=== PATIENT | male | born 1935 | race Caucasian/White ===

== ENCOUNTER 2017-03-13 12:07 | Inpatient (IN) | payer OTHER ==
[2017-03-13 12:30] VITALS: BMI 23.7
--- NOTE | 2017-03-13 14:25 | PDOC ---
History of Present Illness - General Chief Complaint: CVA/TIA Stated Complaint: Altered Mental Status Time Seen by Provider: 03/13/17 12:28 History Source: Patient, Care Provider (Dr Moose Moss was called after speaking with pt.) Exam Limitations: Clinical Condition, Dementia - History of Present Illness Initial Comments: 03/13/17 14:23 The patient is a 81M with a PMH DM, prostate issues, Parkinson's demetia, and a questionable R pneumo who presented to the ED from home via EMS after he states that he was unable to walk and felt weak when he woke up this morning. He does not know his last known well. He did not come with any paperwork and cannot tell me his PMH. PMH is from his PCP. EF = 50% Past History - Past Medical History Allergies/Adverse Reactions: Allergies Allergy/AdvReac Type Severity Reaction Status Date / Time No Known Allergies Allergy Verified 03/13/17 16:08 Home Medications: Ambulatory Orders Furosemide [Lasix -] 20 mg PO DAILY 03/13/17 Lisinopril [Prinivil] 10 mg PO DAILY 03/13/17 Meclizine HCl 12.5 mg PO DAILY 03/13/17 Metformin HCl [Metformin HCl ER] 500 mg PO DAILY 03/13/17 Tamsulosin HCl [Flomax] 0.4 mg PO DAILY 03/13/17 Tiotropium [place] [Spiriva] 1 puff IH DAILY 03/13/17 - Psycho/Social/Smoking Cessation Hx Suicidal Ideation: No Smoking History: Unknown if ever smoked Have you smoked in the past 12 months: No Information on smoking cessation initiated: No Hx Alcohol Use: No Drug/Substance Use Hx: No Review of Systems - Review of Systems Able to Perform ROS?: No (Demented) *Physical Exam - Vital Signs Last Vital Signs Temp Pulse Resp BP Pulse Ox 98 F 80 18 163/87 100 03/13/17 12:27 03/13/17 12:27 03/13/17 12:27 03/13/17 12:27 03/13/17 12:27 - Physical Exam General Appearance: Yes: Nourished, Disheveled HEENT: positive: Normal Voice, Hearing Grossly Normal Respiratory/Chest: positive: Lungs Clear, Normal Breath Sounds. negative: Chest Tender Cardiovascular: positive: Regular Rhythm, Regular Rate, S1, S2. negative: Diastolic Murmur, Systolic Murmur Gastrointestinal/Abdominal: positive: Flat, Soft. negative: Tender Integumentary: positive: Dry, Warm Neurologic: positive: Other (See NIHSS scale) NIH Stroke Scale - Last Known Well Date/Time & Onset Date Last Known Well: 03/12/17 (Unsure) - Initial Evaluation Level of consciousness: Alert Ask patient the month and their age: Answers one correctly Ask patient to open & close eyes; make fist and let go: Obeys both correctly Best gaze (horizontal eye movement): Normal Visual field testing: No visual field loss Facial paresis (Show teeth/raise eyebrows/close eyes tight): Minor paralysis ( flattened nasolabial fold, asymmetry on smiling) Motor Function: Left Arm: Normal Motor Function: Right Arm: Some effort against gravity Motor Function: Left Leg: Normal (extends leg 30 degrees for 5 seconds without drift) Motor Function: Right Leg: Normal (extends leg 30 degrees for 5 seconds without drift) Limb Ataxia: Present in one limb Sensory(Use pinprick test arms,legs,trunk,face/side to side): Normal Best language (Describe picture, name items, read sentences): No Aphasia Dysarthria (read several words): Normal articulation Extinction and Inattention: No abnormality - Total Score NIH Stroke Scale Score: 5 Heart Score/ECG Review - ECG Intrepretation Comment:: 03/13/17 14:50 Paced - QRS Measured at (milliseconds): 154 - ECG Impressions Comment:: 03/13/17 18:32 Ventricular paced. Critical Care Time/MDM Note - Medical Decision Making Note: 03/13/17 14:51 The patient is a demented 81M with a PMH of DM and is s/p a pacemaker who presented to the ED via EMS for being unable to walk. Septic protocol is being followed. Dr. Moose Moss was called for information and wants the patient admitted with respective consults ordered. 03/13/17 18:01 CT shows R occipital infarct. Dr. Moss accepts admission to med/surg. PAOC (Dr. Cristofer Figueroa) suggests a switch to observation status. I have discussed this with Dr. Moss and he wants to keep the full admission status secondary to the R occipital infarct, having the patient seen by Dr. Gamboa, and the patient's pacemaker. I will keep the order as-is. Discharge Disposition - Diagnosis TIA (transient ischemic attack) Qualifiers: Transient cerebral ischemia type: unspecified Qualified Code(s): G45.9 - Transient cerebral ischemic attack, unspecified - Discharge Dispostion Condition at time of disposition: Stable Admit: Yes - Referrals
[2017-03-13 14:32] LABS: BASOPHIL 0.8 % (0-2.0); EOSINOPHIL 1.4 % (0-4.5); MCH 29.6 pg (25.7-33.7); MCHC 33.1 g/dl (32.0-35.9); MEAN CELL VOLUME 89.5 fl (80-96); MEAN PLT VOLUME 7.8 fl (7.5-11.1); NEUTROPHILS 83.1 % (42.8-82.8); PLATELET COUNT 301 K/MM3 (134-434); RDW 14.7 % (11.9-15.9); WHITE BLOOD COUNT 12.3 K/mm3 (4.0-10.0)
[2017-03-13 14:39] LABS: CALCIUM 9.4 mg/dL (8.5-10.1)
[2017-03-13 14:44] LABS: ALBUMIN 3.8 g/dl (3.4-5.0); ANION GAP 9 (8-16); BILIRUBIN,TOTAL 0.8 mg/dL (0.2-1.0); CO2 26 mmol/L (21-32); CREATININE 0.9 mg/dL (0.7-1.3); GLUCOSE,RANDOM 138 mg/dL (74-106); SGOT/AST 8 U/L (15-37); SGPT/ALT 13 U/L (12-78); TOT PROT 7.8 g/dl (6.4-8.2)
[2017-03-13 14:45] LABS: INR 1.1 (0.82-1.09); PROTHROMBIN TIME (PATIENT) 12.1 SEC (9.98-11.88)
[2017-03-13 14:47] LABS: ALK PHOS 83 U/L (45-117); CPK 75 IU/L (39-308); TROPONIN I < 0.02 ng/ml (0.00-0.05)
[2017-03-13 14:48] LABS: VENOUS PH 7.36 (7.32-7.42)
[2017-03-13 14:48] LABS: ACTIVATED PTT 31.7 SECONDS (26.9-34.4)
[2017-03-13 14:49] LABS: VENOUS BLOOD GAS HCO3 27.3 meq/L (19-25)
[2017-03-13 15:20] LABS: URINE APPEARANCE CLEAR; URINE BILIRUBIN NEGATIVE (NEGATIVE); URINE BLOOD NEGATIVE (NEGATIVE); URINE COLOR DKYELLOW; URINE GLUCOSE (UA) NEGATIVE (NEGATIVE); URINE KETONE NEGATIVE (NEGATIVE); URINE LEUK ESTERASE NEGATIVE (NEGATIVE); URINE NITRITE NEGATIVE (NEGATIVE); URINE PROTEIN NEGATIVE (NEGATIVE); URINE UROBILINOGEN NEGATIVE mg/dL (0.2-1.0)
--- NOTE | 2017-03-13 17:18 | EKG ---
Test Reason : Blood Pressure : / mmHG Vent. Rate : 070 BPM Atrial Rate : 066 BPM P-R Int : 000 ms QRS Dur : 154 ms QT Int : 464 ms P-R-T Axes : 000 -16 057 degrees QTc Int : 501 ms Ventricular-paced rhythm PROBABLE UNDERLYING ATRIAL FIBRILLATION ABNORMAL ECG NO PREVIOUS ECGS AVAILABLE Confirmed by MARIELLE YE MD ([id number]) on 03/13/2017 5:18:04 PM Referred By: Confirmed By:MARIELLE YE MD
[2017-03-13] MEDS ORDERED: PNEUMOC 13-VAL CONJ-DIP CRM/PF 0.5 ML DISP.SYRIN IM ONE (17:25)
[2017-03-13] MEDS: SODIUM CHLORIDE 1,000 ML IV SCH (20:28)
--- NOTE | 2017-03-14 00:15 | CON.NEURO ---
Consult Consult Specialty:: NEUROLOGY-[facility] - History of Present Illness Chief Complaint: Difficulty ambulating and speech difficulty History of Present Illness: The patient is a 81M with a PMH DM, prostate issues, Parkinson's demetia, and a questionable R pneumo who presented to the ED from home via EMS after he stated that he was unable to walk and felt weak when he woke up this morning. He does not know his last known well. He did not come with any paperwork and cannot tell me his PMH. Pt. is unable to relate history now due to language disorder, as per nursing staff pt. reportedly fell at home and since has difficulty expressing himself. 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 - Alcohol/Substance Use Hx Alcohol Use: No - Smoking History Smoking history: Unknown if ever smoked Have you smoked in the past 12 months: No Home Medications - Allergies Allergies/Adverse Reactions: Allergies Allergy/AdvReac Type Severity Reaction Status Date / Time No Known Allergies Allergy Verified 03/13/17 16:08 - Home Medications Home Medications: Ambulatory Orders Furosemide [Lasix -] 20 mg PO DAILY 03/13/17 Lisinopril [Prinivil] 10 mg PO DAILY 03/13/17 Meclizine HCl 12.5 mg PO DAILY 03/13/17 Metformin HCl [Metformin HCl ER] 500 mg PO DAILY 03/13/17 Tamsulosin HCl [Flomax] 0.4 mg PO DAILY 03/13/17 Tiotropium [place] [Spiriva] 1 puff IH DAILY 03/13/17 Physical Exam-Neuro Vital Signs: Vital Signs Temperature 98 F 03/13/17 12:27 Pulse Rate 70 03/13/17 16:57 Respiratory Rate 18 03/13/17 16:57 Blood Pressure 151/98 03/13/17 16:57 O2 Sat by Pulse Oximetry (%) 96 03/13/17 20:35 Labs: INR, PTT INR 1.10 (0.82-1.09) 03/13/17 13:00 - Neuro Exam Level Of Consciousness: Yes: Alert (Follows one step commands) Eyes: Yes: PERRL, Right Hemianopsia (?? RHH to threat) Speech: Other (Mixed motor/sensory aphasia with non-fluent speech, logorrhea, anomia, impaired comprehension) Dominant Hand: Right Mini Mental Exam: Unable to test due to language disorder Cranial Nerves II-XII Intact: No (right facial droop, not known old or new) DTR's: 0 Left Achilles, 0 Right Achilles, 1+ Left Bicep (No cogwheel rigidity present), 1+ Right Bicep, 1+ Left Tricep, 1+ Right Tricep, 1+ Left Brachioradialis, 1+ Right Brachioradialis Babinski: Present (Bilateral upgoing toes.) Response to light touch: Normal (Withdraws all 4 ext. to light pain.) Motor Strength: 4/5: Right Arm, Right Leg (?? 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 This localizes to left temporoparietal area, still could be in left CAMPUS ADMINISTRATIVE ASSISTANT territiry or post MCA branches occlusion. Given aphasia will presume embolic etiology unless proven otherwise. Suggest: 1) MRI brain 2) Echo/cardiac monitoring 3) Carotid doppler study 4) Please switch ASA to Plavix if pt. had been on ASA at home. 5) Cardiology consultation. Will follow, Thank you, Vaughn Cruz MD
[2017-03-14] MEDS: metFORMIN HCL 500 MG TABLET (FP) PO SCH ×2 (06:00→17:00)
[2017-03-14 07:25] LABS: BASOPHIL 0.6 % (0-2.0); EOSINOPHIL 4.9 % (0-4.5); MCH 29.7 pg (25.7-33.7); MCHC 33.5 g/dl (32.0-35.9); MEAN CELL VOLUME 88.6 fl (80-96); MEAN PLT VOLUME 7.5 fl (7.5-11.1); NEUTROPHILS 64.7 % (42.8-82.8); PLATELET COUNT 253 K/MM3 (134-434); RDW 14.5 % (11.9-15.9); WHITE BLOOD COUNT 7.6 K/mm3 (4.0-10.0)
--- NOTE | 2017-03-14 08:21 | PN ---
Progress Note (short form) - Note Progress Note: Pts. condition unchanged, he remains with mixed sensory/motor aphasia and 4+/5? ? right leg weakness. Chart home meds reviewed-he was not taking ASA at home, started in hospital, would cont. ASA 81mg daily. Await MRI brain/Carotid study. Vaughn Roche MD
[2017-03-14 08:25] LABS: ALBUMIN 2.9 g/dl (3.4-5.0); ALK PHOS 64 U/L (45-117); ANION GAP 8 (8-16); BILIRUBIN,TOTAL 0.9 mg/dL (0.2-1.0); CALCIUM 8.2 mg/dL (8.5-10.1); CO2 25 mmol/L (21-32); CREATININE 0.8 mg/dL (0.7-1.3); GLUCOSE,RANDOM 107 mg/dL (74-106); SGOT/AST 12 U/L (15-37); SGPT/ALT 11 U/L (12-78)
[2017-03-14] MEDS: SODIUM CHLORIDE 1,000 ML IV SCH (10:12)
[2017-03-14] MEDS: ASPIRIN COATED 81 MG TABLET.EC PO SCH (10:17)
[2017-03-14] MEDS: LISINOPRIL 10 MG TABLET (FP) PO SCH (10:17)
--- NOTE | 2017-03-14 10:36 | HP ---
Admitting History and Physical - Admission Chief Complaint: pt confused slytley. states he was on floor does not no why. 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 ??/) Pulmonary: Yes: COPD - Smoking History Smoking history: Unknown if ever smoked Have you smoked in the past 12 months: No - Alcohol/Substance Use Hx Alcohol Use: No - Social History Usual Living Arrangement: Yes: Other (h a) ADL: Independent History of Recent Travel: No Home Medications - Allergies Allergies/Adverse Reactions: Allergies Allergy/AdvReac Type Severity Reaction Status Date / Time No Known Allergies Allergy Verified 03/13/17 16:08 - Home Medications Home Medications: Ambulatory Orders Furosemide [Lasix -] 20 mg PO DAILY 03/13/17 Lisinopril [Prinivil] 10 mg PO DAILY 03/13/17 Meclizine HCl 12.5 mg PO DAILY 03/13/17 Metformin HCl [Metformin HCl ER] 500 mg PO DAILY 03/13/17 Tamsulosin HCl [Flomax] 0.4 mg PO DAILY 03/13/17 Tiotropium [place] [Spiriva] 1 puff IH DAILY 03/13/17 Family Disease History - Family Disease History Family History: Unremarkable Review of Systems - Review of Systems Constitutional: reports: Weakness (lt side) Eyes: reports: No Symptoms HENT: reports: No Symptoms Neck: reports: No Symptoms Cardiovascular: reports: Shortness of Breath (exertional) Respiratory: reports: SOB on Exertion Gastrointestinal: reports: No Symptoms Genitourinary: reports: No Symptoms Breasts: reports: No Symptoms Reported Musculoskeletal: reports: Back Pain Integumentary: reports: No Symptoms Neurological: reports: Confusion, Unsteady Gait, Other (lt side slytley) Hematology/Lymphatic: reports: No Symptoms Psychiatric: reports: No Symptoms Physical Examination Vital Signs: Vital Signs Temperature 98.8 F 03/14/17 06:00 Pulse Rate 70 03/14/17 06:00 Respiratory Rate 18 03/14/17 06:00 Blood Pressure 129/75 03/14/17 06:00 O2 Sat by Pulse Oximetry (%) 97 03/14/17 06:00 Labs: CBC, BMP 03/14/17 05:35 03/14/17 05:35 Problem List - Problems (1) CHF (congestive heart failure) Code(s): I50.9 - HEART FAILURE, UNSPECIFIED (2) HTN (hypertension) Code(s): I10 - ESSENTIAL (PRIMARY) HYPERTENSION (3) BPH (benign prostatic hyperplasia) Assessment/Plan: pacmaker aiso Code(s): N40.0 - BENIGN PROSTATIC HYPERPLASIA WITHOUT LOWER URINRY TRACT SYMP (4) Afib Code(s): I48.91 - UNSPECIFIED ATRIAL FIBRILLATION (5) Diabetes 1.5, managed as type 2 Code(s): E10.9 - TYPE 1 DIABETES MELLITUS WITHOUT COMPLICATIONS (6) COPD (chronic obstructive pulmonary disease) Code(s): J44.9 - CHRONIC OBSTRUCTIVE PULMONARY DISEASE, UNSPECIFIED (7) Parkinson disease Code(s): G20 - PARKINSON'S DISEASE Assessment/Plan wacful for pacmaker if mri done neuro card f/u
--- NOTE | 2017-03-14 13:17 | CONS ---
CARDIOLOGY CONSULTATION DATE OF CONSULTATION: 03/14/2017 TIME OF CONSULTATION: 10 a.m. REQUESTING PHYSICIAN: Moose Moss MD LOCATION: Telemetry unit. CHIEF COMPLAINT: Confusion. HISTORY OF PRESENT ILLNESS: Patient is an 81-year-old white gentleman who is unable to give a history, is confused in time and space, and also appears to have expressive aphasia. On reviewing patient's history from the emergency room, he is known to have diabetes mellitus, apparently had parkinsonism, dementia, history of permanent pacemaker. Apparently, he has difficulty in ambulating, came with generalized weakness. He is unable to give history of chest pain or discomfort. No history of dyspnea, paroxysmal nocturnal dyspnea, or orthopnea is available. Patient points to his throat and is trying to communicate, but he is unable to speak. There is no known history of hypertension, diabetes mellitus. No known history of coronary artery disease. PAST HISTORY: 1. As mentioned in the history of present illness. 2. No other pertinent past history is available. SOCIAL HISTORY: Not available. FAMILY HISTORY: Not available. ALLERGIES: No allergies have been documented. CURRENT MEDICATIONS: Are as follows: 1. Lisinopril 10 mg p.o. daily. 2. Metformin 500 mg p.o. b.i.d. a.c. 3. Aspirin 81 mg p.o. daily. 4. Sodium chloride IV solution. REVIEW OF SYSTEMS: Not available. PHYSICAL EXAMINATION: General: An 81-year-old gentleman who is ill kept, disheveled, is unable to speak. There is no pallor, cyanosis, clubbing, or jaundice. Vital Signs: Weight is not recorded. Blood pressure 129/75 mmHg. Pulse 70 beats per minute and regular. Afebrile at 98.8 degrees Fahrenheit. Respirations were 18 per minute. Neck: Supple. No jugular venous distention. Hepatojugular reflex was negative. Carotids were 2+. Upstrokes were normal. No bruits were appreciated, and no thyromegaly was palpable. Heart: PMI was in the fifth intercostal space. No heaves or thrills. Heart sounds are distant. No murmur or gallops were heard. Lungs: Clear on auscultation. Abdomen: Protuberant, soft, and nontender. No hepatosplenomegaly or palpable masses were present. Bowel sounds were present. No bruits were heard. Extremities: No calf tenderness or dependent edema. Pulses were equal. LABORATORY DATA: CBC: March 14, 2017, WBC count was 7600. Hemoglobin was 12.8 g/dL. Platelet count was 253,000. Differential revealed elevated eosinophils. Chemistry: Sodium 139, potassium 4.1, chloride 106, CO2 of 25, BUN 20, creatinine 1.8 mg/dL. Random glucose was 107 mg/dL. ECG: Atrial rhythm is uncertain, probably atrial fibrillation. Permanent pacemaker was seen functioning in a fixed rate, more with consistent ventricular capture. X-ray chest dated March 13, 2017: Left-sided pacemaker is unchanged. There are elevated diaphragms with poor inspiration. This accentuates the pulmonary marking as well as cardiac size. There still may be some cardiomegaly and vascular prominence, but to determine this, repeat film with better inspiratory effort is needed. CT scan of the head without contrast impression: Generalized volume loss with [id number] chronic microvascular ischemic changes, focal encephalomalacia/old infarct at the right occipital lobe. No gross acute infarct is identified. Correlate clinically due to determine further evaluation and followup. IMPRESSION: 1. Altered mental status, etiology: A. Secondary to dementia. B. Superimposed cerebrovascular accident. 2. History of diabetes mellitus. 3. Underlying rhythm appears to be atrial fibrillation. 4. Status post permanent pacemaker. 5. History of dementia. RECOMMENDATION: 1. Family member or caregiver needs to be contacted to obtain history and his current medications. 2. Followup x-ray chest. 3. Echocardiogram for evaluation of left ventricular size and function. 4. T3, T4, and TSH. 5. Neurological workup is in progress. Please note that patient has a permanent pacemaker and would not be a candidate for MRI. PROGNOSIS: Guarded. Thank you for your referral. Yours sincerely, KALEB NELSON M.D. [id number]
--- NOTE | 2017-03-14 13:53 | PN ---
Progress Note, Physician - Current Medication List Current Medications: Active Medications Aspirin (Ecotrin -) 81 mg PO DAILY [facility] Last Admin: 03/14/17 10:17 Dose: 81 mg Sodium Chloride (Normal Saline -) 1,000 mls @ 42 mls/hr IV ASDIR [facility] Last Admin: 03/14/17 10:12 Dose: 42 mls/hr Lisinopril (Prinivil) 10 mg PO DAILY [facility] Last Admin: 03/14/17 10:17 Dose: 10 mg Metformin HCl (Glucophage -) 500 mg PO BID@0700,1630 [facility] Last Admin: 03/14/17 06:00 Dose: 500 mg - Objective Vital Signs: Vital Signs Temperature 98.8 F 03/14/17 06:00 Pulse Rate 70 03/14/17 06:00 Respiratory Rate 18 03/14/17 06:00 Blood Pressure 129/75 03/14/17 06:00 O2 Sat by Pulse Oximetry (%) 97 03/14/17 09:00 Labs: CBC, BMP 03/14/17 05:35 03/14/17 05:35 INR, PTT INR 1.10 (0.82-1.09) 03/13/17 13:00 Problem List - Problems (1) CHF (congestive heart failure) Code(s): I50.9 - HEART FAILURE, UNSPECIFIED (2) HTN (hypertension) Code(s): I10 - ESSENTIAL (PRIMARY) HYPERTENSION (3) BPH (benign prostatic hyperplasia) Code(s): N40.0 - BENIGN PROSTATIC HYPERPLASIA WITHOUT LOWER URINRY TRACT SYMP (4) Afib Code(s): I48.91 - UNSPECIFIED ATRIAL FIBRILLATION (5) Diabetes 1.5, managed as type 2 Code(s): E10.9 - TYPE 1 DIABETES MELLITUS WITHOUT COMPLICATIONS (6) COPD (chronic obstructive pulmonary disease) Code(s): J44.9 - CHRONIC OBSTRUCTIVE PULMONARY DISEASE, UNSPECIFIED (7) Parkinson disease Code(s): G20 - PARKINSON'S DISEASE Assessment/Plan pt has hx of a/v block compleat also tried to get hx from [facility] she was not there chf quetionable recoreds diff to obtain
[2017-03-15] MEDS: metFORMIN HCL 500 MG TABLET (FP) PO SCH ×2 (07:25→18:00)
[2017-03-15 07:30] LABS: BASOPHIL 0.8 % (0-2.0); EOSINOPHIL 8.1 % (0-4.5); MCH 29.8 pg (25.7-33.7); MCHC 33.4 g/dl (32.0-35.9); MEAN PLT VOLUME 7.5 fl (7.5-11.1); NEUTROPHILS 60.9 % (42.8-82.8); PLATELET COUNT 232 K/MM3 (134-434); WHITE BLOOD COUNT 7.1 K/mm3 (4.0-10.0)
[2017-03-15 08:11] LABS: ANION GAP 8 (8-16); CO2 25 mmol/L (21-32); GLUCOSE,RANDOM 100 mg/dL (74-106)
[2017-03-15 08:12] LABS: CREATININE 0.8 mg/dL (0.7-1.3)
--- NOTE | 2017-03-15 08:33 | PN ---
Progress Note, Physician History of Present Illness: Pts condition appears improved, his speech is improved with better comprehension and is somewhat more fluent than yesterday. Remains with 4+/5 weakness in right leg. Plan: 1) Will obtain repeat CT head, cannot have MRI as he has a pacemaker. 2) Will call family and enquire re: what meds patient has been on for PD. 3) Cont. ASA - Current Medication List Current Medications: Active Medications Aspirin (Ecotrin -) 81 mg PO DAILY [facility] Last Admin: 03/14/17 10:17 Dose: 81 mg Sodium Chloride (Normal Saline -) 1,000 mls @ 42 mls/hr IV ASDIR [facility] Last Admin: 03/14/17 10:12 Dose: 42 mls/hr Lisinopril (Prinivil) 10 mg PO DAILY [facility] Last Admin: 03/14/17 10:17 Dose: 10 mg Metformin HCl (Glucophage -) 500 mg PO BID@0700,1630 [facility] Last Admin: 03/15/17 07:25 Dose: 500 mg - Objective Vital Signs: Vital Signs Temperature 98.6 F 03/15/17 00:47 Pulse Rate 71 03/15/17 00:47 Respiratory Rate 18 03/15/17 00:47 Blood Pressure 98/6 03/15/17 00:47 O2 Sat by Pulse Oximetry (%) 97 03/14/17 21:00 Neurological: Yes: Alert, Oriented, Aphasia (Improved fluency of language.) ...Motor Strength: RLE (4+/5) Labs: CBC, BMP 03/15/17 06:00 INR, PTT INR 1.10 (0.82-1.09) 03/13/17 13:00
[2017-03-15] MEDS: ASPIRIN COATED 81 MG TABLET.EC PO SCH (09:26)
[2017-03-15] MEDS: LISINOPRIL 10 MG TABLET (FP) PO SCH (09:27)
--- NOTE | 2017-03-15 10:19 | PDOC ---
Attending Attestation - Resident Resident Name: Gianluca Zuñiga - ED Attending Attestation I have performed the following: I have examined & evaluated the patient, The case was reviewed & discussed with the resident, I agree w/resident's findings & plan, Exceptions are as noted - HPI HPI: 03/15/17 10:17 Patient seen 03/13 @ 14:30 Dementia living at home, generalized weakness, ? TIA earlier at home? 03/15/17 10:20 - Physicial Exam PE: 03/15/17 10:18 Frail, NAD, Neurologically without focal deficit, - Medical Decision Making 03/15/17 10:18 I agree with septic work up and admission plans of Dr. Zuñiga 03/15/17 10:[address] Zuñiga's Assessment and Plan
--- NOTE | 2017-03-15 11:15 | CONSULT ---
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 This localizes to left temporoparietal area, still could be in left SUPERVISOR WOUND territiry or post MCA branches occlusion. 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 At times, responses are inaccurate sec Aphasia. eg Pt said year was 38. Comprehension of present yr vs birthdate. Then corrected himself to 18. O x [facility],FEB,KEVIN. good historian for me.), Awake and Alert, Able to Follow Commands (simple. Errors with longer commands.) Attention: Intact Ability to Follow Directions: Fair Head/Neck Control: Good - Hearing Hearing: Impaired (possibly,assessment complicated by auditory comprehension deficits. Pt denies hearing loss.) Speech Evaluation - Communication Primary Language: BELARUSIAN Secondary Language: SERBIAN (fluent) Communication: Yes: Aphasia Oral Expression Ability: Yes: Mild Impairment, Moderate Impairment - Speech Production Able to Make Needs Known: Yes: Mildly Impaired, Moderately Impaired Intelligibility: Yes: Mildly Impaired - Speech Characteristics Voice Loudness: Normal Voice Pitch: Yes: Normal Voice Phonatory-based Quality: Yes: Hoarse Speech Pattern: Impaired Speech Clarity: < 75% Nasal Resonance: Normal Articulation: Yes: Imprecise (mild) - Language/Auditory Comprehension Follows: Yes: 1 Stage Simple Commands Observation: Able to respond to yes/no queries: Yes (simple not complex), Comprehends Conversational Speech: Yes (simple not complex), Benefits from Slow Speech: Yes, Benefits from Repetiton: Yes, Benefits from Increased Volume of Speech: Yes - Language/Verbal Expression Aphasia: Yes: Fluent, Anomia, Paraphrasic Errors Able to Respond to Simple Queries: Yes: Mildly Impaired, Moderately Impaired Able to Communicate Wants and Needs: Yes: Mildly Impaired, Moderately Impaired Functional Communication Status: Yes: Mildly Impaired, Moderately Impaired - Memory/Perception terminal manager Memory: Yes: WNL (seems intact) Short Term Memory: Yes: Mildly Impaired (seems fairly functional. Further assessment indicated.) - Swallow Evaluation/Bedside Assessment Current Nutritional Intake: Regular, Thin Liquids Oral Secretions: Yes: WFL Dentition: Yes: Adequate (lower), Missing Teeth (upper edentulous) Facial Symmetry at Rest: Facial Droop Right (slight) Facial Symmetry on Retraction: Symmetrical Facial Movement: Controlled Pucker Lips: Normal Smile: Normal Lingual Movement: Normal, Symmetric Lingual Speed of Movement: Normal Lingual Movement Strgth Against Opposition: Reduced (mild) Lingual Movement Characteristics: Normal Velopharyngeal Movement: Normal Laryngeal Movement: Able to Palpate Rate of Intake: WFL Bolus Size: WFL Labial Seal: WFL Chewing: Impaired (missing dentition.) Oral Prep Time: Increased A-P Transit: WFL Pocketing: None Coughing/Throat Clear: No Change in Voice: No Recommendations - Speech Evaluation, Impression/Plan Impression: Pt presents with Mild to moderate Aphasia with receptive and expressive language deficits,apparently improving as compared to documentation in chart from neurology yesterday. Pt is o x 3. He comprehends simple language, when spoken slowly, loud enogh with repetion. Breakdown in comprehesion with longer sentences and more complex. Anomia and paraphasic errors adversely affects verbal formulation tasks. Excellent rehab candidate. Pt does seem sad, reactive and appropriate. Recommended Frequency for Therapy: 3-5 x Week - Disposition Discharge to: Rehabilitation Center - Dysphagia Impressions/Plan Dysphagia Impressions: Risk of Aspiration (monitor tolerance), Ongoing Evaluation *Silent aspiration: cannot be R/O at bedside Recommendations: Modified Barium Swallow (if cough,throat clearing,congestion, fever.) - Recommendations Diet Consistency: Regular (soft,easy to chew) Medication Administration: Whole with water Liquids: Thin Liquids Supplement: Other (as indicated. 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
[2017-03-15 12:00] LABS: CHOLESTEROL 165 mg/dL (50-200)
--- NOTE | 2017-03-15 14:04 | PN ---
Progress Note, Physician Chief Complaint: exspresive aphasia? diff formulating words swall eval diff at bed side - Current Medication List Current Medications: Active Medications Aspirin (Ecotrin -) 81 mg PO DAILY [facility] Last Admin: 03/15/17 09:26 Dose: 81 mg Atorvastatin Calcium (Lipitor -) 20 mg PO HS [facility] Sodium Chloride (Normal Saline -) 1,000 mls @ 42 mls/hr IV ASDIR [facility] Last Admin: 03/14/17 10:12 Dose: 42 mls/hr Lisinopril (Prinivil) 10 mg PO DAILY [facility] Last Admin: 03/15/17 09:27 Dose: 10 mg Metformin HCl (Glucophage -) 500 mg PO BID@0700,1630 [facility] Last Admin: 03/15/17 07:25 Dose: 500 mg - Objective Vital Signs: Vital Signs Temperature 98.9 F 03/15/17 10:00 Pulse Rate 72 03/15/17 10:00 Respiratory Rate 18 03/15/17 10:00 Blood Pressure 122/77 03/15/17 10:00 O2 Sat by Pulse Oximetry (%) 97 03/14/17 21:00 Labs: CBC, BMP 03/15/17 06:00 03/15/17 05:35 INR, PTT INR 1.10 (0.82-1.09) 03/13/17 13:00 Problem List - Problems (1) CHF (congestive heart failure) Code(s): I50.9 - HEART FAILURE, UNSPECIFIED (2) HTN (hypertension) Code(s): I10 - ESSENTIAL (PRIMARY) HYPERTENSION (3) BPH (benign prostatic hyperplasia) Code(s): N40.0 - BENIGN PROSTATIC HYPERPLASIA WITHOUT LOWER URINRY TRACT SYMP (4) Afib Code(s): I48.91 - UNSPECIFIED ATRIAL FIBRILLATION (5) Diabetes 1.5, managed as type 2 Code(s): E10.9 - TYPE 1 DIABETES MELLITUS WITHOUT COMPLICATIONS (6) COPD (chronic obstructive pulmonary disease) Code(s): J44.9 - CHRONIC OBSTRUCTIVE PULMONARY DISEASE, UNSPECIFIED (7) Parkinson disease Code(s): G20 - PARKINSON'S DISEASE Assessment/Plan mod bar swallow p/t eval acute lt temp area cva f/u w neuro
--- NOTE | 2017-03-15 14:05 | PN ---
Progress Note, Physician - Current Medication List Current Medications: Active Medications Aspirin (Ecotrin -) 81 mg PO DAILY [facility] Last Admin: 03/15/17 09:26 Dose: 81 mg Atorvastatin Calcium (Lipitor -) 20 mg PO [facility] Sodium Chloride (Normal Saline -) 1,000 mls @ 42 mls/hr IV ASDIR [facility] Last Admin: 03/14/17 10:12 Dose: 42 mls/hr Lisinopril (Prinivil) 10 mg PO DAILY [facility] Last Admin: 03/15/17 09:27 Dose: 10 mg Metformin HCl (Glucophage -) 500 mg PO BID@0700,1630 [facility] Last Admin: 03/15/17 07:25 Dose: 500 mg - Objective Vital Signs: Vital Signs Temperature 98.9 F 03/15/17 10:00 Pulse Rate 72 03/15/17 10:00 Respiratory Rate 18 03/15/17 10:00 Blood Pressure 122/77 03/15/17 10:00 O2 Sat by Pulse Oximetry (%) 97 03/14/17 21:00 Labs: CBC, BMP 03/15/17 06:00 03/15/17 05:35 INR, PTT INR 1.10 (0.82-1.09) 03/13/17 13:00 Problem List - Problems (1) CHF (congestive heart failure) Code(s): I50.9 - HEART FAILURE, UNSPECIFIED (2) HTN (hypertension) Code(s): I10 - ESSENTIAL (PRIMARY) HYPERTENSION (3) BPH (benign prostatic hyperplasia) Code(s): N40.0 - BENIGN PROSTATIC HYPERPLASIA WITHOUT LOWER URINRY TRACT SYMP (4) Afib Code(s): I48.91 - UNSPECIFIED ATRIAL FIBRILLATION (5) Diabetes 1.5, managed as type 2 Code(s): E10.9 - TYPE 1 DIABETES MELLITUS WITHOUT COMPLICATIONS (6) COPD (chronic obstructive pulmonary disease) Code(s): J44.9 - CHRONIC OBSTRUCTIVE PULMONARY DISEASE, UNSPECIFIED (7) Parkinson disease Code(s): G20 - PARKINSON'S DISEASE
[2017-03-15] MEDS: SODIUM CHLORIDE 1,000 ML IV SCH (19:43)
[2017-03-15] MEDS: ATORVASTATIN CA 20 MG TABLET (FP) PO SCH (22:10)
[2017-03-16] MEDS: metFORMIN HCL 500 MG TABLET (FP) PO SCH ×2 (06:34→17:29)
[2017-03-16 08:15] LABS: BASOPHIL 0.7 % (0-2.0); EOSINOPHIL 7.9 % (0-4.5); MCH 29.4 pg (25.7-33.7); MCHC 33.3 g/dl (32.0-35.9); MEAN CELL VOLUME 88.4 fl (80-96); MEAN PLT VOLUME 7.5 fl (7.5-11.1); NEUTROPHILS 58.5 % (42.8-82.8); PLATELET COUNT 235 K/MM3 (134-434); RDW 14.6 % (11.9-15.9); WHITE BLOOD COUNT 6.5 K/mm3 (4.0-10.0)
[2017-03-16 08:35] LABS: ANION GAP 8 (8-16); CALCIUM 8.2 mg/dL (8.5-10.1); CO2 26 mmol/L (21-32); CREATININE 0.8 mg/dL (0.7-1.3); GLUCOSE,RANDOM 100 mg/dL (74-106)
[2017-03-16] MEDS: ASPIRIN COATED 81 MG TABLET.EC PO SCH (10:01)
[2017-03-16] MEDS: LISINOPRIL 10 MG TABLET (FP) PO SCH (10:01)
--- NOTE | 2017-03-16 10:15 | PN ---
Progress Note, Physician - Current Medication List Current Medications: Active Medications Aspirin (Ecotrin -) 81 mg PO DAILY [facility] Last Admin: 03/16/17 10:01 Dose: 81 mg Atorvastatin Calcium (Lipitor -) 20 mg PO HS [facility] Last Admin: 03/15/17 22:10 Dose: 20 mg Sodium Chloride (Normal Saline -) 1,000 mls @ 42 mls/hr IV ASDIR [facility] Last Admin: 03/15/17 19:43 Dose: 42 mls/hr Lisinopril (Prinivil) 10 mg PO DAILY [facility] Last Admin: 03/16/17 10:01 Dose: 10 mg Metformin HCl (Glucophage -) 500 mg PO BID@0700,1630 [facility] Last Admin: 03/16/17 06:34 Dose: 500 mg - Objective Vital Signs: Vital Signs Temperature 99 F 03/16/17 06:00 Pulse Rate 70 03/16/17 06:00 Respiratory Rate 18 03/16/17 06:00 Blood Pressure 126/76 03/16/17 06:00 O2 Sat by Pulse Oximetry (%) 96 03/15/17 21:00 Labs: CBC, BMP 03/16/17 05:50 03/16/17 05:50 INR, PTT INR 1.10 (0.82-1.09) 03/13/17 13:00 Problem List - Problems (1) CHF (congestive heart failure) Code(s): I50.9 - HEART FAILURE, UNSPECIFIED (2) HTN (hypertension) Code(s): I10 - ESSENTIAL (PRIMARY) HYPERTENSION (3) BPH (benign prostatic hyperplasia) Code(s): N40.0 - BENIGN PROSTATIC HYPERPLASIA WITHOUT LOWER URINRY TRACT SYMP (4) Afib Code(s): I48.91 - UNSPECIFIED ATRIAL FIBRILLATION (5) Diabetes 1.5, managed as type 2 Code(s): E10.9 - TYPE 1 DIABETES MELLITUS WITHOUT COMPLICATIONS (6) COPD (chronic obstructive pulmonary disease) Code(s): J44.9 - CHRONIC OBSTRUCTIVE PULMONARY DISEASE, UNSPECIFIED (7) Parkinson disease Code(s): G20 - PARKINSON'S DISEASE Assessment/Plan statis love vss no change mentai status snf adira a must for proper f/u chk swall barium
--- NOTE | 2017-03-16 10:58 | PN ---
Progress Note (short form) - Note Progress Note: 81 year old gentleman admitted with H/O weakness and speech impairment,known to have Parkinson's dementia,DM,PPM,hypertension. Patient is able to communicate and remembers his age and his occupation.No chest pain or discomfort reported.C/O nausea after eating and vomited.Repeat CT scan revealed a nonhemorrhagic temporal lobe infarct. Active Medications Aspirin (Ecotrin -) 81 mg PO DAILY [facility] Last Admin: 03/16/17 10:01 Dose: 81 mg Atorvastatin Calcium (Lipitor -) 20 mg PO HS [facility] Last Admin: 03/15/17 22:10 Dose: 20 mg Sodium Chloride (Normal Saline -) 1,000 mls @ 42 mls/hr IV ASDIR [facility] Last Admin: 03/15/17 19:43 Dose: 42 mls/hr Lisinopril (Prinivil) 10 mg PO DAILY [facility] Last Admin: 03/16/17 10:01 Dose: 10 mg Metformin HCl (Glucophage -) 500 mg PO BID@0700,1630 [facility] Last Admin: 03/16/17 06:34 Dose: 500 mg 81 year old male was in no distress,no pallor,cyanosis,clubbing or jaundice. Vital Signs - 8 hr 03/16/17 03/16/17 06:00 10:00 Temperature 99 F 98.4 F Pulse Rate 70 72 Respiratory 18 22 Rate Blood Pressure 126/76 125/86 NECK: Supple,no JVD,carotids 2+ no bruits heard. HEART:PMI in the 5th space,heart sounds are distant,no murmur or gallops heard. LUNGS:Clear,decreased BS at the bases. ABDOMEN:Soft,obese,nontender.No organomegaly or masses felt. EXTREMITIES:No calf tenderness or dependent edema. CBC, BMP 03/16/17 05:50 03/16/17 05:50 A: 1.Acute nonhemorrhagic CVA. 2.NIDDM 3.H/O Hypertension. 4.Probable Atrial Fibrillation. 5.S/P PPM. 6.H/O Parkinsons dementia. P: 1.F/U Xray chest. 2.Increase ambulation. 3.Obtain all meds.from home. 4.Scheduled for barium swallow.
--- NOTE | 2017-03-16 11:31 | PN ---
Progress Note, KITCHENHAND - Note Progress Note: Expectorated a lot of phlegm this morning before breakfast. r/o silent aspiration? MBS ordered by PMD, to be done today.T to 99.2, wbc ok. Speaking more today. Seems forgetful vs Aphasia with receptive and expressive/ anomia deficits. Able to read well. Unable to state [facility] but independently pulled out his pillow and read [facility] to respond to orientation question. Selected Entries 03/15/17 03/15/17 03/15/17 00:47 10:00 11:47 Breakfast 50% Lunch Supper Temperature 98.6 F 98.9 F 03/15/17 03/15/17 03/15/17 15:28 18:00 20:10 Breakfast Lunch 50% Supper Temperature 98.9 F 97.4 F L 98.8 F 03/15/17 03/16/17 03/16/17 22:47 02:02 06:00 Breakfast Lunch Supper 25% Temperature 99.2 F 99 F 03/16/17 03/16/17 10:00 11:01 Breakfast 50% Lunch Supper Temperature 98.4 F Laboratory Tests 03/14/17 03/15/17 03/16/17 05:35 06:00 05:50 WBC 7.6 D 7.1 6.5 Pt would benefit from intensive rehabilitation with goal to return home, if appropriate.
--- NOTE | 2017-03-16 18:35 | CON.GI ---
Consult Consult Specialty:: GI Referred by:: Dr Moose Moss - History of Present Illness History of Present Illness: 81 y/o M was admitted to telemetry because of CVA. One week ago he developed solid food dysphagia. He underwent modified Barium swallow which revealed a possible stricture just above the g-e junction. He is tolerating clear liquids. I observed him for 15 min. There were no choking episodes. He denies any weight loss. There is anterograde amnesia noted while obtaining history. 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[place] History of Recent Travel: No Home Medications - Allergies Allergies/Adverse Reactions: Allergies Allergy/AdvReac Type Severity Reaction Status Date / Time No Known Allergies Allergy Verified 03/13/17 16:08 - Home Medications Home Medications: Ambulatory Orders Furosemide [Lasix -] 20 mg PO DAILY 03/13/17 Lisinopril [Prinivil] 10 mg PO DAILY 03/13/17 Meclizine HCl 12.5 mg PO DAILY 03/13/17 Metformin HCl [Metformin HCl ER] 500 mg PO DAILY 03/13/17 Tamsulosin HCl [Flomax] 0.4 mg PO DAILY 03/13/17 Tiotropium Scotrun [Spiriva] 1 puff IH DAILY 03/13/17 Family Disease History - Family Disease History Family Disease History: CA: Mother (stomach cancer) Review of Systems Unable to obtain ROS, reason: clinical condition Physical Exam-GI Vital Signs: Vital Signs Temperature 99.1 F 03/16/17 15:20 Pulse Rate 70 03/16/17 15:20 Respiratory Rate 22 03/16/17 10:00 Blood Pressure 130/77 03/16/17 15:20 O2 Sat by Pulse Oximetry (%) 97 03/16/17 09:00 Constitutional: Yes: Obese Eyes: Yes: Conjunctiva Clear HENT: Yes: Atraumatic Neck: Yes: Trachea Midline Cardiovascular: Yes: Regular Rate and Rhythm Respiratory: Yes: CTA Bilaterally ...Palpate: Yes: Soft. No: Firm/Rigid, Guarding, Hepatomegaly, Mass, Pulsatile Mass, Splenomegaly, Tenderness Labs: CBC, BMP 03/16/17 05:50 03/16/17 05:50 INR, PTT INR 1.10 (0.82-1.09) 03/13/17 13:00 Problem List - Problems (1) Afib Code(s): I48.91 - UNSPECIFIED ATRIAL FIBRILLATION (2) Dysphagia Assessment/Plan: r/o stricture vs malignancy R> for EGD tomorrow d/w Dr Moss,patient medically cleared for the procedure Code(s): R13.10 - DYSPHAGIA, UNSPECIFIED
[2017-03-16] MEDS: ATORVASTATIN CA 20 MG TABLET (FP) PO SCH (21:34)
[2017-03-17] MEDS: metFORMIN HCL 500 MG TABLET (FP) PO SCH ×2 (06:11→16:38)
[2017-03-17 08:21] LABS: ANION GAP 7 (8-16); CALCIUM 8.1 mg/dL (8.5-10.1); CO2 25 mmol/L (21-32); CREATININE 0.7 mg/dL (0.7-1.3); GLUCOSE,RANDOM 92 mg/dL (74-106)
--- NOTE | 2017-03-17 08:40 | PN ---
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 I saw and examined the pt at the bedside ; his dysphasia is resolving ; denies any headache, numbness ,weakness or visual symptoms. PE: A& o x3, no dysarthria or dysphasia, naming , repetition intact. CN 2-12 : EOMI , PERRLA, [place] , no face asymmetria or gaze preference Motor: Moves all exts ; pinky finger deformities b/l sensory: Int LT Cerebellar : Int FN A/P: #New L sup temporal infarct , dysphasia improving ; -add plavix + baby asp for 3 months , then baby asp thereafter -pt/ot/st -Fall precautions -statin -B12, Homocysteine, RPR #afib s/p PPM #dysphagia (2/2 stroke vs stricture vs malignancy) plan for EGD today Health maintenance per primary team. Tomeka Venegas M.D.
--- NOTE | 2017-03-17 09:08 | PN ---
Progress Note, Physician Chief Complaint: mild confution better - Current Medication List Current Medications: Active Medications Aspirin (Ecotrin -) 81 mg PO DAILY [facility] Last Admin: 03/16/17 10:01 Dose: 81 mg Atorvastatin Calcium (Lipitor -) 20 mg PO HS [facility] Last Admin: 03/16/17 21:34 Dose: 20 mg Sodium Chloride (Normal Saline -) 1,000 mls @ 42 mls/hr IV ASDIR [facility] Last Admin: 03/15/17 19:43 Dose: 42 mls/hr Lisinopril (Prinivil) 10 mg PO DAILY [facility] Last Admin: 03/16/17 10:01 Dose: 10 mg Metformin HCl (Glucophage -) 500 mg PO BID@0700,1630 [facility] Last Admin: 03/17/17 06:11 Dose: Not Given - Objective Vital Signs: Vital Signs Temperature 98.7 F 03/17/17 05:30 Pulse Rate 70 03/17/17 05:30 Respiratory Rate 18 03/17/17 05:30 Blood Pressure 128/79 03/17/17 05:30 O2 Sat by Pulse Oximetry (%) 95 03/16/17 21:00 Labs: CBC, BMP 03/16/17 05:50 03/17/17 05:45 INR, PTT INR 1.10 (0.82-1.09) 03/13/17 13:00 Problem List - Problems (1) CHF (congestive heart failure) Code(s): I50.9 - HEART FAILURE, UNSPECIFIED (2) HTN (hypertension) Code(s): I10 - ESSENTIAL (PRIMARY) HYPERTENSION (3) BPH (benign prostatic hyperplasia) Code(s): N40.0 - BENIGN PROSTATIC HYPERPLASIA WITHOUT LOWER URINRY TRACT SYMP (4) Afib Code(s): I48.91 - UNSPECIFIED ATRIAL FIBRILLATION (5) Diabetes 1.5, managed as type 2 Code(s): E10.9 - TYPE 1 DIABETES MELLITUS WITHOUT COMPLICATIONS (6) COPD (chronic obstructive pulmonary disease) Code(s): J44.9 - CHRONIC OBSTRUCTIVE PULMONARY DISEASE, UNSPECIFIED (7) Parkinson disease Code(s): G20 - PARKINSON'S DISEASE Assessment/Plan psyche for competency to go to [place] at adir or sprain egd today
[2017-03-17] MEDS: ASPIRIN COATED 81 MG TABLET.EC PO SCH (09:35)
[2017-03-17] MEDS: LISINOPRIL 10 MG TABLET (FP) PO SCH (09:35)
--- NOTE | 2017-03-17 11:45 | PN ---
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 He reports still having trouble thinking of words intermittently.He Is o x 3, and a good historian, telling me about not being able to eat or drinking pending his EGD, and having help at home 3 days weekly. Selected Entries 03/16/17 03/16/17 03/16/17 02:02 06:00 10:00 Breakfast Lunch Supper Temperature 99.2 F 99 F 98.4 F 03/16/17 03/16/17 03/16/17 11:01 15:20 18:30 Breakfast 50% Lunch 50% Supper 50% Temperature 99.1 F 98.4 F 03/16/17 03/17/17 03/17/17 20:05 00:00 05:30 Breakfast Lunch Supper Temperature 99.0 F 97.8 F 98.7 F 03/17/17 03/17/17 09:00 10:20 Breakfast NPO Lunch Supper Temperature 97.8 F Laboratory Tests 03/16/17 05:50 WBC 6.5 Communication much more functional. He sounds less congested today. NPO pending EGD
--- NOTE | 2017-03-17 11:47 | PN ---
Progress Note (short form) - Note Progress Note: 81 year old gentleman admitted with H/O weakness and speech impairment,known to have Parkinson's dementia,DM,PPM,hypertension,was experiencing abdominal discomfort and vomiting,underwent a modified barium swallow,appears to have a possible distal esophageal stricture. Patient remains alert,progressive speech improvement.No SOB,or chest pain reported. Active Medications Generic Name Dose Route Start Last Admin Trade Name Freq PRN Reason Stop Dose Admin Aspirin 81 mg 03/14/17 10:00 03/17/17 09:35 Ecotrin - PO Not Given DAILY [facility] Atorvastatin Calcium 20 mg 03/15/17 22:00 03/16/17 21:34 Lipitor - PO 20 mg HS [facility] Administration Sodium Chloride 1,000 mls @ 42 mls/hr 03/13/17 19:00 03/15/17 19:43 Normal Saline - IV 42 mls/hr ASDIR [facility] Administration Lisinopril 10 mg 03/14/17 10:00 03/17/17 09:35 Prinivil PO 10 mg DAILY [facility] Administration Metformin HCl 500 mg 03/14/17 07:00 03/17/17 06:11 Glucophage - PO Not Given BID@0700,1630 [facility] 81 year old male appears oriented,no pallor or cyanosis. Vital Signs - 8 hr 03/17/17 03/17/17 05:30 09:00 Temperature 98.7 F 97.8 F Pulse Rate 70 72 Respiratory 18 22 Rate Blood Pressure 128/79 147/93 O2 Sat by Pulse 96 Oximetry (%) NECK: Supple,no JVD,carotids 2+ no bruits heard. HEART:PMI in the 5th space,heart sounds are distant,no murmur or gallops heard. LUNGS:Clear,decreased BS at the bases. ABDOMEN:Soft,obese,nontender.No organomegaly or masses felt. EXTREMITIES:No calf tenderness or dependent edema. CBC, BMP 03/16/17 05:50 03/17/17 05:45 A: 1.Acute nonhemorrhagic CVA. 2.NIDDM 3.H/O Hypertension. 4.Probable Atrial Fibrillation. 5.S/P PPM. 6.H/O Parkinsons dementia. 7.Probable esophageal stricture. P: 1.Neurologist recommends additon of Plavix. 2.GI evaluation is pending and speech pathologist recommended patient to be NPO till evaluated by GI. 3.Xray chest.
--- NOTE | 2017-03-17 14:57 | PN ---
Progress Note (short form) - Note Progress Note: ADDENDUM: S/P EGD WITH FINDING OF 2 ESOPHAGEAL MASSES, ONE AT 33 CM AND ONE AT THE G-E JUNCTION. OTHERWISE NORMAL EGD. MULTIPLE BIOPSIES OBTAINED. DISCUSSED WITH DR FRANK WILL NEED ONC TO ASSESS CT OF CHEST/ABDOMEN AND PELVIS ORDERED (patient has a PPM so no MRI and has normal renal fxn so CT OK) FURTHER MANAGEMENT PENDING RESULTS DO NOT GIVE PLAVIX AT THIS TIME. ASA 81mg SHOULD BE OK CHANGE DIET TO CLEAR LIQUID FF
--- NOTE | 2017-03-17 17:50 | CON.PSY ---
Psychiatry Consult Chief Complaint: Patient according to staff has become m,ore alert and able to comprehend and engage in conversatiomn. He wass told about the Mass in his chest. Transfer to [place] is on hold. - Previous Psychiatric Treatment Outpatient: None Inpatient: None - Previous Substance Abuse Treatment Outpatient: None Inpatient: None - Current Medications Current Medications: Active Medications Aspirin (Ecotrin -) 81 mg PO DAILY [facility] Last Admin: 03/17/17 09:35 Dose: Not Given Atorvastatin Calcium (Lipitor -) 20 mg PO HS [facility] Last Admin: 03/16/17 21:34 Dose: 20 mg Sodium Chloride (Normal Saline -) 1,000 mls @ 42 mls/hr IV ASDIR [facility] Last Admin: 03/15/17 19:43 Dose: 42 mls/hr Lisinopril (Prinivil) 10 mg PO DAILY [facility] Last Admin: 03/17/17 09:35 Dose: 10 mg Metformin HCl (Glucophage -) 500 mg PO BID@0700,1630 [facility] Last Admin: 03/17/17 16:38 Dose: Not Given - Allergies Allergies: Allergies Allergy/AdvReac Type Severity Reaction Status Date / Time No Known Allergies Allergy Verified 03/13/17 16:08 - Current Living Status Usual Living Arrangement: Alone - Current Mental Status Evaluation Appearance: Disheveled Attitude: Cooperative - Affect Affect: Constrictive Appropriateness: Appropriate to Content - Mood Mood: Euthymic - Speech/Language Expressive: Coherent - Psychomotor Activity Psychomotor Activity: Slowed - Thought Process Thought Process: Intact - Thought Content Hallucinations: Absent Delusions: Absent - Self Perception Self Perception: No Impairment - Cognition Attention: Alert Orientation: Time Memory, Immediate Recall: Intact Memory, Short Term: 2/3 Memory, Remote with Promptin/3 - Concentration Serial Sevens Intact: No Simple Calculations Intact: No - Abstraction Proverb Interpretation: Intact Judgement: Intact - Insight Insight: Intact - Impulse Control Impulse Control: Good Control - Suicidal Ideation Suicidal Ideation: No - Homicidal Ideation Homicidal Ideation: No Assessment/Plan Patient has the functional capacity to make decisions at this time.
[2017-03-17] MEDS: ATORVASTATIN CA 20 MG TABLET (FP) PO SCH (22:44)
[2017-03-17] MEDS: POLYETHYLENE GLYCOL 3350 119 GM BTL PO SCH (22:45)
[2017-03-18] MEDS: metFORMIN HCL 500 MG TABLET (FP) PO SCH ×2 (06:31→17:17)
[2017-03-18 07:46] LABS: BASOPHIL 0.7 % (0-2.0); EOSINOPHIL 8.2 % (0-4.5); MCH 29.8 pg (25.7-33.7); MCHC 33.5 g/dl (32.0-35.9); MEAN CELL VOLUME 89.1 fl (80-96); NEUTROPHILS 60.9 % (42.8-82.8); PLATELET COUNT 239 K/MM3 (134-434); RDW 14.8 % (11.9-15.9); WHITE BLOOD COUNT 6.7 K/mm3 (4.0-10.0)
[2017-03-18 08:05] LABS: ANION GAP 7 (8-16); CALCIUM 8.1 mg/dL (8.5-10.1); CO2 26 mmol/L (21-32); CREATININE 0.7 mg/dL (0.7-1.3); GLUCOSE,RANDOM 90 mg/dL (74-106)
[2017-03-18] MEDS: POLYETHYLENE GLYCOL 3350 119 GM BTL PO SCH (10:20)
[2017-03-18] MEDS: ASPIRIN COATED 81 MG TABLET.EC PO SCH (10:20)
[2017-03-18] MEDS: LISINOPRIL 10 MG TABLET (FP) PO SCH (10:20)
--- NOTE | 2017-03-18 10:50 | PN ---
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 He denies any headache, numbness ,weakness or visual dysfunction. - Current Medication List Current Medications: Active Medications Aspirin (Ecotrin -) 81 mg PO DAILY [facility] Last Admin: 03/18/17 10:20 Dose: 81 mg Atorvastatin Calcium (Lipitor -) 20 mg PO HS [facility] Last Admin: 03/17/17 22:44 Dose: 20 mg Sodium Chloride (Normal Saline -) 1,000 mls @ 42 mls/hr IV ASDIR [facility] Last Admin: 03/15/17 19:43 Dose: 42 mls/hr Lisinopril (Prinivil) 10 mg PO DAILY [facility] Last Admin: 03/18/17 10:20 Dose: 10 mg Metformin HCl (Glucophage -) 500 mg PO BID@0700,1630 [facility] Last Admin: 03/18/17 06:31 Dose: Not Given Polyethylene Glycol (Miralax (For Daily Use) -) 17 gm PO DAILY [facility] Last Admin: 03/18/17 10:20 Dose: 17 gm - Objective Vital Signs: Vital Signs Temperature 99.0 F 03/18/17 01:00 Pulse Rate 70 03/18/17 05:00 Respiratory Rate 20 03/18/17 05:00 Blood Pressure 123/73 03/18/17 05:00 O2 Sat by Pulse Oximetry (%) 96 03/17/17 20:39 Neurological: Yes: Cran Nerves II-XII Intact, Unsteady Gait Labs: CBC, BMP 03/18/17 06:00 03/18/17 06:00 INR, PTT INR 1.10 (0.82-1.09) 03/13/17 13:00 - ....Imaging Cat Scan: Report Reviewed, Image Reviewed (left temporal infarction) Problem List - Problems (1) 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 He is on Aspirin but he has a mass in his abdomen that is thought to be at high risk of bleeding and for that reason will need to remain on aspirin without more aggressive antiplatelet therapy. Code(s): I63.40 - CEREBRAL INFARCTION DUE TO EMBOLISM OF UNSP CEREBRAL ARTERY
--- NOTE | 2017-03-18 12:34 | PN ---
Progress Note, Physician Chief Complaint: status love altered metal statis - Current Medication List Current Medications: Active Medications Aspirin (Ecotrin -) 81 mg PO DAILY [facility] Last Admin: 03/18/17 10:20 Dose: 81 mg Atorvastatin Calcium (Lipitor -) 20 mg PO HS [facility] Last Admin: 03/17/17 22:44 Dose: 20 mg Sodium Chloride (Normal Saline -) 1,000 mls @ 42 mls/hr IV ASDIR [facility] Last Admin: 03/15/17 19:43 Dose: 42 mls/hr Lisinopril (Prinivil) 10 mg PO DAILY [facility] Last Admin: 03/18/17 10:20 Dose: 10 mg Metformin HCl (Glucophage -) 500 mg PO BID@0700,1630 [facility] Last Admin: 03/18/17 06:31 Dose: Not Given Polyethylene Glycol (Miralax (For Daily Use) -) 17 gm PO DAILY [facility] Last Admin: 03/18/17 10:20 Dose: 17 gm - Objective Vital Signs: Vital Signs Temperature 98.5 F 03/18/17 10:00 Pulse Rate 70 03/18/17 10:00 Respiratory Rate 18 03/18/17 10:00 Blood Pressure 146/95 03/18/17 10:00 O2 Sat by Pulse Oximetry (%) 96 03/18/17 09:00 Constitutional: Yes: No Distress Eyes: Yes: WNL HENT: Yes: WNL Neck: Yes: WNL Cardiovascular: Yes: Pulse Irregular, Other (pacmaker) Respiratory: Yes: WNL Gastrointestinal: Yes: WNL ...Rectal Exam: Yes: Deferred Genitourinary: Yes: WNL Breast(s): Yes: WNL Musculoskeletal: Yes: WNL Extremities: Yes: WNL Edema: No Peripheral Pulses WNL: Yes Integumentary: Yes: WNL Neurological: Yes: Confusion ...Motor Strength: WNL Labs: CBC, BMP 03/18/17 06:00 03/18/17 06:00 INR, PTT INR 1.10 (0.82-1.09) 03/13/17 13:00 Problem List - Problems (1) CHF (congestive heart failure) Code(s): I50.9 - HEART FAILURE, UNSPECIFIED (2) HTN (hypertension) Code(s): I10 - ESSENTIAL (PRIMARY) HYPERTENSION (3) BPH (benign prostatic hyperplasia) Code(s): N40.0 - BENIGN PROSTATIC HYPERPLASIA WITHOUT LOWER URINRY TRACT SYMP (4) Afib Code(s): I48.91 - UNSPECIFIED ATRIAL FIBRILLATION (5) Diabetes 1.5, managed as type 2 Code(s): E10.9 - TYPE 1 DIABETES MELLITUS WITHOUT COMPLICATIONS (6) COPD (chronic obstructive pulmonary disease) Code(s): J44.9 - CHRONIC OBSTRUCTIVE PULMONARY DISEASE, UNSPECIFIED (7) Parkinson disease Code(s): G20 - PARKINSON'S DISEASE Assessment/Plan pt fua to see if barium cleared than do ct scans body r/o mets cont all other tx and diet
--- NOTE | 2017-03-18 14:38 | PN ---
Progress Note (short form) - Note Progress Note: S:81 year old gentleman admitted with H/O weakness and speech impairment,known to have Parkinson's dementia,DM,PPM,hypertension,esophageal stricture Patient is alert and communicative,denies chest pain or discomfort, no SOB,PND or orthopnea reported. on liquids and waiting for further GI workup. Active Medications Aspirin (Ecotrin -) 81 mg PO DAILY [facility] Last Admin: 03/18/17 10:20 Dose: 81 mg Atorvastatin Calcium (Lipitor -) 20 mg PO HS [facility] Last Admin: 03/17/17 22:44 Dose: 20 mg Sodium Chloride (Normal Saline -) 1,000 mls @ 42 mls/hr IV ASDIR [facility] Last Admin: 03/15/17 19:43 Dose: 42 mls/hr Lisinopril (Prinivil) 10 mg PO DAILY [facility] Last Admin: 03/18/17 10:20 Dose: 10 mg Metformin HCl (Glucophage -) 500 mg PO BID@0700,1630 [facility] Last Admin: 03/18/17 06:31 Dose: Not Given Polyethylene Glycol (Miralax (For Daily Use) -) 17 gm PO DAILY [facility] Last Admin: 03/18/17 10:20 Dose: 17 gm O: 81 year male is alert and aware of his surroundings. Vital Signs - 8 hr 03/18/17 03/18/17 09:00 10:00 Temperature 98.5 F Pulse Rate 70 Respiratory 18 Rate Blood Pressure 146/95 O2 Sat by Pulse 96 Oximetry (%) NECK: Supple,no JVD,carotids 2+ no bruits heard. HEART:PMI in the 5th space,heart sounds are distant,no murmur or gallops heard. LUNGS:Clear,decreased BS at the bases. ABDOMEN:Soft,obese,nontender.No organomegaly or masses felt. EXTREMITIES:No calf tenderness or dependent edema. CBC, BMP 03/18/17 06:00 03/18/17 06:00 A: 1.Acute nonhemorrhagic CVA. 2.NIDDM 3.H/O Hypertension. 4.Probable Atrial Fibrillation. 5.S/P PPM. 6.H/O Parkinsons dementia. 7.Esophageal stricture. P: 1. Continue current therapy. 2. Increase ambulation. 3. waiting GI evaluation.
[2017-03-18] MEDS: SODIUM CHLORIDE 1,000 ML IV SCH ×2 (15:19→18:27)
[2017-03-18] MEDS: TAMSULOSIN HCL 0.4 MG CAP.ER.24H (FP) PO SCH (18:29)
[2017-03-18 18:59] LABS: URINE APPEARANCE CLEAR; URINE BILIRUBIN NEGATIVE (NEGATIVE); URINE BLOOD NEGATIVE (NEGATIVE); URINE COLOR LTYELLOW; URINE GLUCOSE (UA) NEGATIVE (NEGATIVE); URINE KETONE NEGATIVE (NEGATIVE); URINE LEUK ESTERASE NEGATIVE (NEGATIVE); URINE NITRITE NEGATIVE (NEGATIVE); URINE PROTEIN NEGATIVE (NEGATIVE); URINE UROBILINOGEN NEGATIVE mg/dL (0.2-1.0)
[2017-03-18] MEDS: ATORVASTATIN CA 20 MG TABLET (FP) PO SCH (21:56)
[2017-03-19] MEDS: metFORMIN HCL 500 MG TABLET (FP) PO SCH ×2 (06:23→17:42)
[2017-03-19 07:53] LABS: BASOPHIL 0.8 % (0-2.0); EOSINOPHIL 6.6 % (0-4.5); MCH 29.7 pg (25.7-33.7); MCHC 33.4 g/dl (32.0-35.9); MEAN PLT VOLUME 7.4 fl (7.5-11.1); NEUTROPHILS 61.6 % (42.8-82.8); PLATELET COUNT 250 K/MM3 (134-434); RDW 14.7 % (11.9-15.9); WHITE BLOOD COUNT 6.4 K/mm3 (4.0-10.0)
[2017-03-19 08:21] LABS: CALCIUM 8.2 mg/dL (8.5-10.1)
[2017-03-19 08:25] LABS: ANION GAP 8 (8-16); CO2 25 mmol/L (21-32); CREATININE 0.7 mg/dL (0.7-1.3); GLUCOSE,RANDOM 119 mg/dL (74-106)
[2017-03-19] MEDS: ASPIRIN COATED 81 MG TABLET.EC PO SCH (10:25)
[2017-03-19] MEDS: POLYETHYLENE GLYCOL 3350 119 GM BTL PO SCH (10:25)
[2017-03-19] MEDS: TAMSULOSIN HCL 0.4 MG CAP.ER.24H (FP) PO SCH (10:25)
[2017-03-19] MEDS: LISINOPRIL 10 MG TABLET (FP) PO SCH (10:25)
--- NOTE | 2017-03-19 10:27 | PN ---
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 He denies any headache, numbness ,weakness or visual dysfunction. - Current Medication List Current Medications: Active Medications Aspirin (Ecotrin -) 81 mg PO DAILY [facility] Last Admin: 03/18/17 10:20 Dose: 81 mg Atorvastatin Calcium (Lipitor -) 20 mg PO HS [facility] Last Admin: 03/18/17 21:56 Dose: 20 mg Sodium Chloride (Normal Saline -) 1,000 mls @ 42 mls/hr IV ASDIR [facility] Last Admin: 03/18/17 18:27 Dose: Not Given Lisinopril (Prinivil) 10 mg PO DAILY [facility] Last Admin: 03/18/17 10:20 Dose: 10 mg Metformin HCl (Glucophage -) 500 mg PO BID@0700,1630 [facility] Last Admin: 03/19/17 06:23 Dose: 500 mg Polyethylene Glycol (Miralax (For Daily Use) -) 17 gm PO DAILY [facility] Last Admin: 03/18/17 10:20 Dose: 17 gm Tamsulosin HCl (Flomax -) 0.4 mg PO DAILY@0830 [facility] Last Admin: 03/18/17 18:29 Dose: 0.4 mg - Objective Vital Signs: Vital Signs Temperature 98.3 F 03/19/17 06:00 Pulse Rate 70 03/19/17 06:00 Respiratory Rate 18 03/19/17 06:00 Blood Pressure 146/80 03/19/17 06:00 O2 Sat by Pulse Oximetry (%) 98 03/19/17 06:00 Neurological: Yes: Alert (oriented in 2 spheres,), Cran Nerves II-XII Intact ( increased tone, moving all limbs symmetrically. 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 He is on Aspirin but he has a mass in his abdomen that is thought to be at high risk of bleeding and for that reason will need to remain on aspirin without more aggressive antiplatelet therapy. Code(s): I63.40 - CEREBRAL INFARCTION DUE TO EMBOLISM OF UNSP CEREBRAL ARTERY
--- NOTE | 2017-03-19 11:01 | PN ---
Progress Note, Physician Chief Complaint: pt had bm no complaints more coherant moves all limbs - Current Medication List Current Medications: Active Medications Aspirin (Ecotrin -) 81 mg PO DAILY [facility] Last Admin: 03/19/17 10:25 Dose: 81 mg Atorvastatin Calcium (Lipitor -) 20 mg PO HS [facility] Last Admin: 03/18/17 21:56 Dose: 20 mg Sodium Chloride (Normal Saline -) 1,000 mls @ 42 mls/hr IV ASDIR [facility] Last Admin: 03/18/17 18:27 Dose: Not Given Lisinopril (Prinivil) 10 mg PO DAILY [facility] Last Admin: 03/19/17 10:25 Dose: 10 mg Metformin HCl (Glucophage -) 500 mg PO BID@0700,1630 [facility] Last Admin: 03/19/17 06:23 Dose: 500 mg Polyethylene Glycol (Miralax (For Daily Use) -) 17 gm PO DAILY [facility] Last Admin: 03/19/17 10:25 Dose: 17 gm Tamsulosin HCl (Flomax -) 0.4 mg PO DAILY@0830 [facility] Last Admin: 03/19/17 10:25 Dose: 0.4 mg - Objective Vital Signs: Vital Signs Temperature 98.3 F 03/19/17 06:00 Pulse Rate 70 03/19/17 06:00 Respiratory Rate 18 03/19/17 06:00 Blood Pressure 146/80 03/19/17 06:00 O2 Sat by Pulse Oximetry (%) 98 03/19/17 06:00 Labs: CBC, BMP 03/19/17 06:30 03/19/17 06:30 INR, PTT INR 1.10 (0.82-1.09) 03/13/17 13:00 Problem List - Problems (1) CHF (congestive heart failure) Code(s): I50.9 - HEART FAILURE, UNSPECIFIED (2) HTN (hypertension) Code(s): I10 - ESSENTIAL (PRIMARY) HYPERTENSION (3) BPH (benign prostatic hyperplasia) Code(s): N40.0 - BENIGN PROSTATIC HYPERPLASIA WITHOUT LOWER URINRY TRACT SYMP (4) Afib Code(s): I48.91 - UNSPECIFIED ATRIAL FIBRILLATION (5) Diabetes 1.5, managed as type 2 Code(s): E10.9 - TYPE 1 DIABETES MELLITUS WITHOUT COMPLICATIONS (6) COPD (chronic obstructive pulmonary disease) Code(s): J44.9 - CHRONIC OBSTRUCTIVE PULMONARY DISEASE, UNSPECIFIED (7) Parkinson disease Code(s): G20 - PARKINSON'S DISEASE Assessment/Plan fua again if no contrast do cts
[2017-03-19] MEDS ORDERED: BACITRACIN 0.9 GM PACKET TP SCH (15:00)
[2017-03-19] MEDS: BACITRACIN 15 GM TUBE TOPICAL OINTMENT TP SCH (17:28)
[2017-03-19] MEDS: ATORVASTATIN CA 20 MG TABLET (FP) PO SCH (22:16)
[2017-03-20] MEDS: metFORMIN HCL 500 MG TABLET (FP) PO SCH ×2 (06:50→17:09)
[2017-03-20 07:20] LABS: BASOPHIL 0.8 % (0-2.0); MCH 29.6 pg (25.7-33.7); MCHC 33.4 g/dl (32.0-35.9); MEAN CELL VOLUME 88.7 fl (80-96); MEAN PLT VOLUME 7.5 fl (7.5-11.1); NEUTROPHILS 61.6 % (42.8-82.8); PLATELET COUNT 245 K/MM3 (134-434); RDW 14.9 % (11.9-15.9); WHITE BLOOD COUNT 5.8 K/mm3 (4.0-10.0)
[2017-03-20 07:58] LABS: ANION GAP 6 (8-16); CALCIUM 8.1 mg/dL (8.5-10.1); CO2 27 mmol/L (21-32)
[2017-03-20 08:01] LABS: CREATININE 0.7 mg/dL (0.7-1.3); GLUCOSE,RANDOM 102 mg/dL (74-106)
--- NOTE | 2017-03-20 09:05 | PN ---
Progress Note, Physician - Current Medication List Current Medications: Active Medications Aspirin (Ecotrin -) 81 mg PO DAILY [facility] Last Admin: 03/19/17 10:25 Dose: 81 mg Atorvastatin Calcium (Lipitor -) 20 mg PO HS [facility] Last Admin: 03/19/17 22:16 Dose: 20 mg Bacitracin (Bacitracin -) 1 applic TP DAILY [facility] Last Admin: 03/19/17 17:28 Dose: 1 appful Sodium Chloride (Normal Saline -) 1,000 mls @ 42 mls/hr IV ASDIR [facility] Last Admin: 03/18/17 18:27 Dose: Not Given Lisinopril (Prinivil) 10 mg PO DAILY [facility] Last Admin: 03/19/17 10:25 Dose: 10 mg Metformin HCl (Glucophage -) 500 mg PO BID@0700,1630 [facility] Last Admin: 03/20/17 06:50 Dose: Not Given Polyethylene Glycol (Miralax (For Daily Use) -) 17 gm PO DAILY [facility] Last Admin: 03/19/17 10:25 Dose: 17 gm Tamsulosin HCl (Flomax -) 0.4 mg PO DAILY@0830 [facility] Last Admin: 03/19/17 10:25 Dose: 0.4 mg - Objective Vital Signs: Vital Signs Temperature 98.0 F 03/20/17 06:00 Pulse Rate 70 03/20/17 06:00 Respiratory Rate 20 03/20/17 06:00 Blood Pressure 111/63 03/20/17 06:00 O2 Sat by Pulse Oximetry (%) 97 03/19/17 21:00 Labs: CBC, BMP 03/20/17 05:35 03/20/17 05:35 INR, PTT INR 1.10 (0.82-1.09) 03/13/17 13:00 Problem List - Problems (1) CHF (congestive heart failure) Code(s): I50.9 - HEART FAILURE, UNSPECIFIED (2) HTN (hypertension) Code(s): I10 - ESSENTIAL (PRIMARY) HYPERTENSION (3) BPH (benign prostatic hyperplasia) Code(s): N40.0 - BENIGN PROSTATIC HYPERPLASIA WITHOUT LOWER URINRY TRACT SYMP (4) Afib Code(s): I48.91 - UNSPECIFIED ATRIAL FIBRILLATION (5) Diabetes 1.5, managed as type 2 Code(s): E10.9 - TYPE 1 DIABETES MELLITUS WITHOUT COMPLICATIONS (6) COPD (chronic obstructive pulmonary disease) Code(s): J44.9 - CHRONIC OBSTRUCTIVE PULMONARY DISEASE, UNSPECIFIED (7) Parkinson disease Code(s): G20 - PARKINSON'S DISEASE Assessment/Plan barium still in colon lll infitrate id consult gi f/u
[2017-03-20] MEDS ORDERED: BACITRACIN 0.9 GM PACKET TP SCH (10:00)
[2017-03-20] MEDS: LISINOPRIL 10 MG TABLET (FP) PO SCH (10:11)
[2017-03-20] MEDS: BACITRACIN 15 GM TUBE TOPICAL OINTMENT TP SCH (10:11)
[2017-03-20] MEDS: TAMSULOSIN HCL 0.4 MG CAP.ER.24H (FP) PO SCH (10:11)
[2017-03-20] MEDS: ASPIRIN COATED 81 MG TABLET.EC PO SCH (10:11)
--- NOTE | 2017-03-20 11:53 | PN ---
Progress Note, [employer] - Note Progress Note: 2 esophageal mass identified during EGD. Pt is aware and is concerned if it is "cancer" and if "anything can be done." Pt referred back to PMD/GI regarding plan of management. Selected Entries 03/19/17 03/19/17 03/19/17 02:00 06:00 10:00 Breakfast Supper Temperature 98.2 F 98.3 F 98.2 F 03/19/17 03/19/17 03/19/17 14:00 18:00 21:00 Breakfast Supper Temperature 98.7 F 98.2 F 98.1 F 03/19/17 03/20/17 03/20/17 22:52 01:00 06:00 Breakfast Supper 75% Temperature 97.5 F L 98.0 F 03/20/17 03/20/17 10:00 10:15 Breakfast 75% 75% Supper Temperature 98.4 F Laboratory Tests 03/20/17 05:35 WBC 5.8 Pt is verbal, occasionally vague, with continued improvement of language function.He is oriented and appropriate. Pt is tolerating clear liquids at this time. Consider GI followup/ RD consult/ regarding Liquid supplements, eg Ensure, for improved nutritional intake.
[2017-03-20] MEDS: POLYETHYLENE GLYCOL 3350 119 GM BTL PO SCH (13:25)
--- NOTE | 2017-03-20 13:26 | CONSULT ---
Consult Consult Specialty:: infectious diseases Referred by:: Reason for Consultation:: pneumonia - History of Present Illness Chief Complaint: inability to swallow properly,food sticking History of Present Illness: 81 y/o M was admitted to telemetry because of CVA. patient had developed solid food dysphagia. He underwent modified Barium swallow which revealed a possible stricture just above the g-e junction. patient was then taken for egd which showed 2 esophageal mass patient was asking if anything could be done for that. patient can swallow liquids but he mentions that when he takes solid it is like choking sensation and he cannot swallow it and has vomiting sensation on his xray it was noted that he has developed a left lower infiltrate currently the patient is calm but he is worried and also on his work up there is uti gi is on the case - History Source History Provided By: Patient, Medical Record Limitations to Obtaining History: Poor Historian - Past Medical History [employer]: Yes: Other (mild oms) Cardio/Vascular: Yes: AFIB, CHF, Other (chf ? 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 [place] History of Recent Travel: No Home Medications - Allergies Allergies/Adverse Reactions: Allergies Allergy/AdvReac Type Severity Reaction Status Date / Time No Known Allergies Allergy Verified 03/13/17 16:08 - Home Medications Home Medications: Ambulatory Orders Furosemide [Lasix -] 20 mg PO DAILY 03/13/17 Lisinopril [Prinivil] 10 mg PO DAILY 03/13/17 Meclizine HCl 12.5 mg PO DAILY 03/13/17 Metformin HCl [Metformin HCl ER] 500 mg PO DAILY 03/13/17 Tamsulosin HCl [Flomax] 0.4 mg PO DAILY 03/13/17 Tiotropium [place] [Spiriva] 1 puff IH DAILY 03/13/17 Family Disease History - Family Disease History Family Disease History: CA: Mother (stomach cancer) Review of Systems - Review of Systems Constitutional: reports: No Symptoms Eyes: reports: No Symptoms HENT: reports: No Symptoms Neck: reports: No Symptoms Cardiovascular: reports: No Symptoms Respiratory: reports: No Symptoms Gastrointestinal: reports: Dysphagia, Other Genitourinary: reports: No Symptoms Integumentary: reports: No Symptoms Neurological: reports: No Symptoms Endocrine: reports: No Symptoms Hematology/Lymphatic: reports: No Symptoms Psychiatric: reports: No Symptoms Physical Exam Vital Signs: Vital Signs Temperature 98.4 F 03/20/17 10:00 Pulse Rate 74 03/20/17 10:00 Respiratory Rate 20 03/20/17 10:00 Blood Pressure 133/82 03/20/17 10:00 O2 Sat by Pulse Oximetry (%) 96 03/20/17 10:00 Constitutional: Yes: Well Nourished, No Distress, Calm Eyes: Yes: Conjunctiva Clear Neck: Yes: Supple, Trachea Midline Cardiovascular: Yes: Regular Rate and Rhythm Respiratory: Yes: Regular, Poor Air Entry (left lower lobe) Gastrointestinal: Yes: Normal Bowel Sounds, Soft Musculoskeletal: Yes: WNL Extremities: Yes: WNL Neurological: Yes: Alert, Oriented Psychiatric: Yes: Alert, Oriented Labs: CBC, BMP 03/20/17 05:35 03/20/17 05:35 Imaging - Results Chest X-ray: Report Reviewed, Image Reviewed Cat Scan: Report Reviewed, Image Reviewed Other: Report Reviewed, Image Reviewed Assessment/Plan Problem List - Problems (1) CHF (congestive heart failure) Code(s): I50.9 - HEART FAILURE, UNSPECIFIED (2) HTN (hypertension) Code(s): I10 - ESSENTIAL (PRIMARY) HYPERTENSION (3) BPH (benign prostatic hyperplasia) Code(s): N40.0 - BENIGN PROSTATIC HYPERPLASIA WITHOUT LOWER URINRY TRACT SYMP (4) Afib Code(s): I48.91 - UNSPECIFIED ATRIAL FIBRILLATION (5) Diabetes 1.5, managed as type 2 Code(s): E10.9 - TYPE 1 DIABETES MELLITUS WITHOUT COMPLICATIONS (6) COPD (chronic obstructive pulmonary disease) Code(s): J44.9 - CHRONIC OBSTRUCTIVE PULMONARY DISEASE, UNSPECIFIED (7) Parkinson disease Code(s): G20 - PARKINSON'S DISEASE pneumonia--left lower infiltrate looking at this picture patient taking liquids i am worried looking at this masses that this infiltrate could be due to microaspiration plan i am going to start the patinet on unasyn s not starting him on anything could fulminante the problem also giving him tablets could complicate the picture if there is any aspiration issue once he is more stable and we ahve a final plan we will switch him to oral abx
--- NOTE | 2017-03-20 14:00 | PN ---
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 denies any chest pain or discomfort.No dyspnea reported. Active Medications Aspirin (Ecotrin -) 81 mg PO DAILY [facility] Last Admin: 03/20/17 10:11 Dose: 81 mg Atorvastatin Calcium (Lipitor -) 20 mg PO HS [facility] Last Admin: 03/19/17 22:16 Dose: 20 mg Bacitracin (Bacitracin -) 1 applic TP DAILY [facility] Last Admin: 03/20/17 10:11 Dose: 1 appful Sodium Chloride (Normal Saline -) 1,000 mls @ 42 mls/hr IV ASDIR [facility] Last Admin: 03/18/17 18:27 Dose: Not Given Ampicillin Sodium/Sulbactam (Sodium 3 gm/ Sodium Chloride) 100 mls @ 200 mls/ hr IVPB Q8H-IV [facility] Lisinopril (Prinivil) 10 mg PO DAILY [facility] Last Admin: 03/20/17 10:11 Dose: 10 mg Metformin HCl (Glucophage -) 500 mg PO BID@0700,1630 [facility] Last Admin: 03/20/17 06:50 Dose: Not Given Polyethylene Glycol (Miralax (For Daily Use) -) 17 gm PO DAILY [facility] Last Admin: 03/20/17 13:25 Dose: 17 gm Tamsulosin HCl (Flomax -) 0.4 mg PO DAILY@0830 [facility] Last Admin: 03/20/17 10:11 Dose: 0.4 mg 81 year old male appears oriented,no pallor or cyanosis. Vital Signs - 8 hr 03/20/17 03/20/17 06:00 10:00 Temperature 98.0 F 98.4 F Pulse Rate 70 74 Respiratory 20 20 Rate Blood Pressure 111/63 133/82 O2 Sat by Pulse 96 Oximetry (%) NECK: Supple,no JVD,carotids 2+ no bruits heard. HEART:PMI in the 5th space,heart sounds are distant,no murmur or gallops heard. LUNGS:Clear,decreased BS at the bases. ABDOMEN:Soft,obese,nontender.No organomegaly or masses felt. EXTREMITIES:No calf tenderness or dependent edema. CBC, BMP 03/20/17 05:35 03/20/17 05:35 C A: 1.Acute nonhemorrhagic CVA. 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 3.H/O Hypertension. 4.Probable Atrial Fibrillation. 5.S/P PPM. 6.H/O Parkinsons dementia. 7.NIDDM. P: 1.Continue current therapy, If patient is bleeding from the esophageal lesions, ASA may have to be d/c'd. 2.F/U CBC.. 3.awaiting biopsy report.
[2017-03-20] MEDS ORDERED: PT OWN MED DRAWER 7, Y5N ONE ×2 (15:12→16:38)
[2017-03-20] MEDS: SODIUM CHLORIDE 1,000 ML IV SCH (15:14)
[2017-03-20] MEDS: AMPICILLIN NA/SULBACTAM NA 3 GM in SODIUM CHLORIDE 100 ML IVPB SCH ×2 (15:14→17:09)
--- NOTE | 2017-03-20 21:58 | PN ---
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 Plan:Cont ASA, w/u for stomach mass in progress.Would hold off on treating PD at this time. Vaughn Cruz. - Current Medication List Current Medications: Active Medications Aspirin (Ecotrin -) 81 mg PO DAILY [facility] Last Admin: 03/20/17 10:11 Dose: 81 mg Atorvastatin Calcium (Lipitor -) 20 mg PO HS [facility] Last Admin: 03/19/17 22:16 Dose: 20 mg Bacitracin (Bacitracin -) 1 applic TP DAILY [facility] Last Admin: 03/20/17 10:11 Dose: 1 appful Sodium Chloride (Normal Saline -) 1,000 mls @ 42 mls/hr IV ASDIR [facility] Last Admin: 03/20/17 15:14 Dose: 42 mls/hr Ampicillin Sodium/Sulbactam (Sodium 3 gm/ Sodium Chloride) 100 mls @ 200 mls/ hr IVPB Q8H-IV [facility] Last Admin: 03/20/17 17:09 Dose: 200 mls/hr Lisinopril (Prinivil) 10 mg PO DAILY [facility] Last Admin: 03/20/17 10:11 Dose: 10 mg Metformin HCl (Glucophage -) 500 mg PO BID@0700,1630 [facility] Last Admin: 03/20/17 17:09 Dose: Not Given Polyethylene Glycol (Miralax (For Daily Use) -) 17 gm PO DAILY [facility] Last Admin: 03/20/17 13:25 Dose: 17 gm Tamsulosin HCl (Flomax -) 0.4 mg PO DAILY@0830 [facility] Last Admin: 03/20/17 10:11 Dose: 0.4 mg - Objective Vital Signs: Vital Signs Temperature 98.5 F 03/20/17 17:00 Pulse Rate 71 03/20/17 17:00 Respiratory Rate 20 03/20/17 17:00 Blood Pressure 139/91 03/20/17 17:00 O2 Sat by Pulse Oximetry (%) 96 03/20/17 10:00 Labs: CBC, BMP 03/20/17 05:35 03/20/17 05:35 INR, PTT INR 1.10 (0.82-1.09) 03/13/17 13:00
[2017-03-20] MEDS: ATORVASTATIN CA 20 MG TABLET (FP) PO SCH (22:00)
[2017-03-21] MEDS ORDERED: PT OWN MED DRAWER 7, Y5N ONE ×2 (02:01→10:00)
[2017-03-21] MEDS: AMPICILLIN NA/SULBACTAM NA 3 GM in SODIUM CHLORIDE 100 ML IVPB SCH ×3 (02:03→17:13)
[2017-03-21] MEDS: metFORMIN HCL 500 MG TABLET (FP) PO SCH ×2 (07:27→15:50)
[2017-03-21 08:19] LABS: BASOPHIL 0.7 % (0-2.0); EOSINOPHIL 7.5 % (0-4.5); MCH 29.3 pg (25.7-33.7); MEAN CELL VOLUME 88.9 fl (80-96); MEAN PLT VOLUME 7.5 fl (7.5-11.1); NEUTROPHILS 65.4 % (42.8-82.8); PLATELET COUNT 249 K/MM3 (134-434); RDW 15.1 % (11.9-15.9); WHITE BLOOD COUNT 6.7 K/mm3 (4.0-10.0)
[2017-03-21 09:36] LABS: CALCIUM 8.3 mg/dL (8.5-10.1)
[2017-03-21 09:38] LABS: ANION GAP 9 (8-16); CO2 25 mmol/L (21-32); CREATININE 0.7 mg/dL (0.7-1.3); GLUCOSE,RANDOM 100 mg/dL (74-106)
[2017-03-21] MEDS: TAMSULOSIN HCL 0.4 MG CAP.ER.24H (FP) PO SCH (10:07)
[2017-03-21] MEDS: ASPIRIN COATED 81 MG TABLET.EC PO SCH (10:07)
[2017-03-21] MEDS: BACITRACIN 15 GM TUBE TOPICAL OINTMENT TP SCH (10:07)
[2017-03-21] MEDS: LISINOPRIL 10 MG TABLET (FP) PO SCH (10:07)
[2017-03-21] MEDS: POLYETHYLENE GLYCOL 3350 119 GM BTL PO SCH (10:07)
--- NOTE | 2017-03-21 10:14 | PN ---
Progress Note (short form) - Note Progress Note: No neurologic changes. Swallowing a bit better. On ASA for now. Some lightheadedness on standing. Hold PD meds for now. 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
--- NOTE | 2017-03-21 10:36 | PN ---
Progress Note, Physician Chief Complaint: bm ok no complaints mental statis n/c responsive states has dnr in place - Current Medication List Current Medications: Active Medications Aspirin (Ecotrin -) 81 mg PO DAILY [facility] Last Admin: 03/21/17 10:07 Dose: 81 mg Atorvastatin Calcium (Lipitor -) 20 mg PO HS [facility] Last Admin: 03/20/17 22:00 Dose: 20 mg Bacitracin (Bacitracin -) 1 applic TP DAILY [facility] Last Admin: 03/21/17 10:07 Dose: 1 appful Sodium Chloride (Normal Saline -) 1,000 mls @ 42 mls/hr IV ASDIR [facility] Last Admin: 03/20/17 15:14 Dose: 42 mls/hr Ampicillin Sodium/Sulbactam (Sodium 3 gm/ Sodium Chloride) 100 mls @ 200 mls/ hr IVPB Q8H-IV [facility] Last Admin: 03/21/17 10:08 Dose: 200 mls/hr Lisinopril (Prinivil) 10 mg PO DAILY [facility] Last Admin: 03/21/17 10:07 Dose: 10 mg Metformin HCl (Glucophage -) 500 mg PO BID@0700,1630 [facility] Last Admin: 03/21/17 07:27 Dose: Not Given Polyethylene Glycol (Miralax (For Daily Use) -) 17 gm PO DAILY [facility] Last Admin: 03/21/17 10:07 Dose: 17 gm Tamsulosin HCl (Flomax -) 0.4 mg PO DAILY@0830 [facility] Last Admin: 03/21/17 10:07 Dose: 0.4 mg - Objective Vital Signs: Vital Signs Temperature 97.5 F L 03/21/17 06:00 Pulse Rate 71 03/21/17 06:00 Respiratory Rate 20 03/21/17 06:00 Blood Pressure 158/98 03/21/17 06:00 O2 Sat by Pulse Oximetry (%) 96 03/20/17 21:00 Constitutional: Yes: No Distress, Calm Eyes: Yes: WNL HENT: Yes: WNL Neck: Yes: WNL Cardiovascular: Yes: Pulse Irregular Respiratory: Yes: WNL Gastrointestinal: Yes: WNL ...Rectal Exam: Yes: Deferred Genitourinary: Yes: WNL Breast(s): Yes: WNL Musculoskeletal: Yes: WNL Extremities: Yes: WNL Edema: No Peripheral Pulses WNL: Yes Integumentary: Yes: WNL Neurological: Yes: Other (very mild confusion) ...Motor Strength: WNL Psychiatric: Yes: WNL Labs: CBC, BMP 03/21/17 06:05 03/21/17 06:05 INR, PTT INR 1.10 (0.82-1.09) 03/13/17 13:00 Problem List - Problems (1) CHF (congestive heart failure) Code(s): I50.9 - HEART FAILURE, UNSPECIFIED (2) HTN (hypertension) Code(s): I10 - ESSENTIAL (PRIMARY) HYPERTENSION (3) BPH (benign prostatic hyperplasia) Code(s): N40.0 - BENIGN PROSTATIC HYPERPLASIA WITHOUT LOWER URINRY TRACT SYMP (4) Afib Code(s): I48.91 - UNSPECIFIED ATRIAL FIBRILLATION (5) Diabetes 1.5, managed as type 2 Code(s): E10.9 - TYPE 1 DIABETES MELLITUS WITHOUT COMPLICATIONS (6) COPD (chronic obstructive pulmonary disease) Code(s): J44.9 - CHRONIC OBSTRUCTIVE PULMONARY DISEASE, UNSPECIFIED (7) Parkinson disease Code(s): G20 - PARKINSON'S DISEASE Assessment/Plan ensure tid asp prec cont atx as is ic unysn
--- NOTE | 2017-03-21 10:39 | PN ---
Progress Note, DIRECTOR OF COLLECTIONS AND ARCHIVES - Note Progress Note: 2 esophageal mass identified during EGD. Pt is aware and is concerned if it is "cancer" and if "anything can be done." Pt referred back to PMD/GI regarding plan of management. Selected Entries 03/19/17 03/19/17 03/19/17 02:00 06:00 10:00 Breakfast Supper Temperature 98.2 F 98.3 F 98.2 F 03/19/17 03/19/17 03/19/17 14:00 18:00 21:00 Breakfast Supper Temperature 98.7 F 98.2 F 98.1 F 03/19/17 03/20/17 03/20/17 22:52 01:00 06:00 Breakfast Supper 75% Temperature 97.5 F L 98.0 F 03/20/17 03/20/17 10:00 10:15 Breakfast 75% 75% Supper Temperature 98.4 F Laboratory Tests 03/20/17 05:35 WBC 5.8 Selected Entries 03/20/17 03/20/17 03/20/17 01:00 06:00 10:00 Breakfast 75% Lunch Supper Temperature 97.5 F L 98.0 F 98.4 F 03/20/17 03/20/17 03/20/17 10:15 14:40 17:00 Breakfast 75% Lunch 75% Supper Temperature 98.2 F 98.5 F 03/20/17 03/20/17 03/21/17 19:23 20:00 02:00 Breakfast Lunch Supper 75% Temperature 98.1 F 98 F 03/21/17 06:00 Breakfast Lunch Supper Temperature 97.5 F L Laboratory Tests 03/20/17 03/21/17 05:35 06:05 WBC 5.8 6.7 Pt is verbal, occasionally vague, with continued improvement of language function.He is oriented and appropriate. Pt is tolerating clear liquids at this time. Now receiving Ensure clear tid for improved nutritional support. ID feels possible microaspiration. CXR LLL infiltrate. WBC ok. No fever. Pt reclines frequently after meals. No SOB/congestion reported. Counseled pt on need to have meals OOB and remain upright for atleast an hour to reduce risk of retrograde aspiration.
--- NOTE | 2017-03-21 13:41 | PATH ---
Surgical Pathology Report Patient Name: URSULA BARRAZA [facility]. Rec. #: [id number] /Age/Gender: 1935 (Age: 81) / M Account: [id number] Location: 4 W TELEMETRY U Taken: 03/17/2017 Received: 03/20/2017 Reported: 03/21/2017 Physicians: Uma Peralta M.D. Specimen(s) Received A: BX GE JUNCTION B: BX 25 CM MID ESOPHAGUS LESION C: BX 35 CM PROXIMAL ESOPHAGEAL LESION Clinical History Dysphagia Multiple mass/lesions in esophagus Final Diagnosis A. 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 B. ESOPHAGUS, 25 CM, MID ESOPHGEAL LESION, BIOPSY: ADENOCARCINOMA, POORLY DIFFERENTIATED WITH FOCAL EXTRACELLULAR MUCIN. C. ESOPHAGUS, 35 CM, PROXIMAL LESION, BIOPSY: SCANT DETACHED FRAGMENT OF ADENOCARCINOMA IN BACKGROUND OF HEMORRHAGIC MATERIAL. BENIGN SQUAMOUS EPITHELIUM ALSO PRESENT. Comment: Her2 IHC is pending; results will be reported in an addendum; DMA MMR protein expression analysis by IHC is pending; results will be reported in an addendum. The case was discussed with Dr. Medrano on 03/21/17. Electronically Signed Erasmo Franks M.D. Addendum Reported: 03/28/2017 Addendum Diagnosis Result of Her2 IHC performed on block A1 at [employer] [place], [place] ([id number]) is as follows: Her2 IHC (EP3 from [employer], formerly known as [id number], using [employer] Polymer Refine detection kit): 2+ (Equivocal) Results of Her2 FISH studies will be reported separately in an addendum. Positive and negative controls (internal if applicable) show appropriate results. DNA Mismatch Repair (MMR) protein expression analysis by IHC performed at the [place], [place] ([id number]) on block A1 and interpreted [facility] shows the following: Results: hMLH-1 DNA Mismatch Repair Protein: Intact nuclear expression hMSH-2 DNA Mismatch Repair Protein: Intact nuclear expression hMSH-6 DNA Mismatch Repair Protein: Intact nuclear expression PMS2 DNA Mismatch Repair Protein: Intact nuclear expression Interpretation: No defect in DNA Mismatch Repair (MMR) protein expression is identified by IHC. This result is usually seen in MSI-H stable tumors and is not associated with HNPCC (Robert syndrome). Erasmo Franks M.D. Addendum Reported: 03/29/2017 Addendum Diagnosis Results of Her2 FISH studies performed on block A1 at [place], [place] ([id number]) are as follows: Her2: 20.0 CEP17: 2.6 Ratio: 7.7 Interpretation: POSITIVE Erasmo Franks M.D. Gross Description A. Received in formalin, labeled "biopsy GE junction mass" are 4 deng, irregular portions of soft tissue ranging from 0.2-0.3 cm in greatest dimension. The specimens are submitted in toto in one cassette. B. Received in formalin, labeled "biopsy 25 cm mid esophagus lesion" are 6 deng, irregular portions of soft tissue ranging from 0.1-0.4 cm in greatest dimension. The specimens are submitted in toto in one cassette. C. Received in formalin, labeled "biopsy 35 cm proximal esophageal lesion" is a deng, irregular portion of soft tissue measuring 0.9 cm in greatest dimension. The specimen is submitted in toto in one cassette. 03/20/2017 saudi03/20/2017
--- NOTE | 2017-03-21 15:10 | PN ---
Progress Note, Physician History of Present Illness: stable no new issues - Current Medication List Current Medications: Active Medications Aspirin (Ecotrin -) 81 mg PO DAILY [facility] Last Admin: 03/21/17 10:07 Dose: 81 mg Atorvastatin Calcium (Lipitor -) 20 mg PO HS [facility] Last Admin: 03/20/17 22:00 Dose: 20 mg Bacitracin (Bacitracin -) 1 applic TP DAILY [facility] Last Admin: 03/21/17 10:07 Dose: 1 appful Sodium Chloride (Normal Saline -) 1,000 mls @ 42 mls/hr IV ASDIR [facility] Last Admin: 03/20/17 15:14 Dose: 42 mls/hr Ampicillin Sodium/Sulbactam (Sodium 3 gm/ Sodium Chloride) 100 mls @ 200 mls/ hr IVPB Q8H-IV [facility] Last Admin: 03/21/17 10:08 Dose: 200 mls/hr Lisinopril (Prinivil) 10 mg PO DAILY [facility] Last Admin: 03/21/17 10:07 Dose: 10 mg Metformin HCl (Glucophage -) 500 mg PO BID@0700,1630 [facility] Last Admin: 03/21/17 07:27 Dose: Not Given Polyethylene Glycol (Miralax (For Daily Use) -) 17 gm PO DAILY [facility] Last Admin: 03/21/17 10:07 Dose: 17 gm Tamsulosin HCl (Flomax -) 0.4 mg PO DAILY@0830 [facility] Last Admin: 03/21/17 10:07 Dose: 0.4 mg - Objective Vital Signs: Vital Signs Temperature 98.2 F 03/21/17 14:56 Pulse Rate 71 03/21/17 14:56 Respiratory Rate 18 03/21/17 14:56 Blood Pressure 153/90 03/21/17 14:56 O2 Sat by Pulse Oximetry (%) 97 03/21/17 10:00 Constitutional: Yes: No Distress, Calm Cardiovascular: Yes: Regular Rate and Rhythm Respiratory: Yes: Regular, CTA Bilaterally Gastrointestinal: Yes: Normal Bowel Sounds, Soft Musculoskeletal: Yes: WNL Extremities: Yes: WNL Neurological: Yes: Alert, Oriented Labs: CBC, BMP 03/21/17 06:05 03/21/17 06:05 INR, PTT INR 1.10 (0.82-1.09) 03/13/17 13:00 Assessment/Plan Problem List - Problems (1) CHF (congestive heart failure) Code(s): I50.9 - HEART FAILURE, UNSPECIFIED (2) HTN (hypertension) Code(s): I10 - ESSENTIAL (PRIMARY) HYPERTENSION (3) BPH (benign prostatic hyperplasia) Code(s): N40.0 - BENIGN PROSTATIC HYPERPLASIA WITHOUT LOWER URINRY TRACT SYMP (4) Afib Code(s): I48.91 - UNSPECIFIED ATRIAL FIBRILLATION (5) Diabetes 1.5, managed as type 2 Code(s): E10.9 - TYPE 1 DIABETES MELLITUS WITHOUT COMPLICATIONS (6) COPD (chronic obstructive pulmonary disease) Code(s): J44.9 - CHRONIC OBSTRUCTIVE PULMONARY DISEASE, UNSPECIFIED (7) Parkinson disease Code(s): G20 - PARKINSON'S DISEASE pneumonia--left lower infiltrate plan continue current mgmt await for final report about the tumor
[2017-03-21] MEDS: SODIUM CHLORIDE 1,000 ML IV SCH (17:14)
--- NOTE | 2017-03-21 21:37 | PN ---
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 Of interest, mother had stomach cancer . 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 Dysphagia secondary to esophageal masses +/_ contribution of acute CVA. Aspiration pneumonia pneumonia on antibiotics per I. D. Diabetes Mellitus (II) Hypertension Pacemaker Suggest : When medically feasible CT scan of chest , abdomen and pelvis Bone Scan Will need RT consult --I will contact . Follow up with GI If definitive RT ( +/_ chemotherapy) is to be considered and patient is unable to eat , will likely need a feeding tube for nutrition. Will need to have neurology clear patient to move forward with aforementioned tests and treatments.
[2017-03-21] MEDS: ATORVASTATIN CA 20 MG TABLET (FP) PO SCH (21:51)
--- NOTE | 2017-03-22 00:26 | CONS ---
DATE OF CONSULTATION: 03/21/2017 HISTORY OF PRESENT ILLNESS: This is an 81-year-old who presented to the hospital confused and weak and had some degree of expressive aphasia. He was noted on the CT scan to have an acute nonhemorrhagic infarct of the temporal lobe. He also had an old infarct of the right occipital lobe and cerebral atrophy as well as microvascular ischemic changes. PAST HISTORY: Includes diabetes, Parkinson's, dementia, and permanent pacemaker. 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 He smoked 1-2 cigarettes a day, beginning at an early age and this was discontinued in 1979. He drank on weekends. FAMILY HISTORY: Includes a mother who had stomach cancer. ALLERGIES: No known allergies. MEDICATIONS: Have included metformin, lisinopril, aspirin. REVIEW OF SYSTEMS: Patient denies headaches, diplopia, epistaxis. Patient has had difficulty swallowing. He has a left lower lobe infiltrate, which likely is aspiration in nature. He has no chest pain. No nausea or vomiting, diarrhea. No dysuria. No back or bone pain. CURRENT PHYSICAL EXAMINATION: General: The patient is lying in bed. He has a left-sided CVA with a right-sided facial and right-sided weakness. Vital signs: Reveal a BP of 163/94, pulse 73, respiratory rate 20, afebrile. HEENT: PERRLA, EOM intact. Oropharynx: No mucositis. Tongue: Midline. Lungs: Diminished breath sounds. Cardiac: Regular rhythm. No gynecomastia. Abdomen: Soft. Extremities: No significant edema. LABORATORY: WBC 6.7, hematocrit 37, platelets 249,000 with 65 PMNs and 17 lymphocytes. INR 1.1. Chemistries: Sodium 143, potassium 3.9, chloride 109, CO2 25, BUN 6, creatinine 0.7, AST 12, ALT 11, Alkaline phosphatase 64. Total protein 6.0 and 7.8. PSA was 5.9. Upper endoscopy performed during the hospital stay for dysphagia, which is one of the patient's complaints included 2 masses; 1 at the 25 cm and surgical pathology, although Dr. Barakat who performed it suggested it was at the 30 cm, revealed multiple sites of adenocarcinoma and a 2nd focus at the GE junction also has pathology revealing adenocarcinoma. CT scan of the head as aforementioned, acute left temporal lobe infarct, nonhemorrhagic and old, right-sided occipital infarct with white matter changes. IMPRESSION: 1. Acute cerebrovascular accident involving the left uatsdin area. 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 2. Dysphagia secondary to cerebrovascular accident as well as secondary to esophageal masses; adenocarcinoma at 30 cm and at the gastroesophageal junction. 3. Left lower lobe infiltrate, likely secondary to aspiration pneumonia, currently on antibiotic therapy per Infectious Disease. PLAN: Patient will need total body CT scans. He will need a bone scan. He will need a radiation therapy consultation as well. GI can follow up concerning the possibility, if these lesions are obstructing, of stenting the patient, although more definitive radiation with or without chemotherapy needs to be entertained. JEN MOLINA M.D. GERONIMO/[id number]
[2017-03-22] MEDS ORDERED: PT OWN MED DRAWER 7, Y5N ONE ×2 (03:39→09:24)
[2017-03-22] MEDS: AMPICILLIN NA/SULBACTAM NA 3 GM in SODIUM CHLORIDE 100 ML IVPB SCH ×3 (03:44→17:16)
[2017-03-22] MEDS: metFORMIN HCL 500 MG TABLET (FP) PO SCH ×2 (06:32→16:37)
[2017-03-22 07:44] LABS: BASOPHIL 0.7 % (0-2.0); EOSINOPHIL 5.3 % (0-4.5); MCH 29.8 pg (25.7-33.7); MCHC 33.8 g/dl (32.0-35.9); MEAN CELL VOLUME 88.3 fl (80-96); MEAN PLT VOLUME 7.5 fl (7.5-11.1); PLATELET COUNT 244 K/MM3 (134-434); RDW 15.2 % (11.9-15.9); WHITE BLOOD COUNT 6.5 K/mm3 (4.0-10.0)
[2017-03-22 08:09] LABS: ANION GAP 9 (8-16); CALCIUM 8.3 mg/dL (8.5-10.1); CO2 27 mmol/L (21-32); GLUCOSE,RANDOM 113 mg/dL (74-106)
[2017-03-22 08:10] LABS: CREATININE 0.7 mg/dL (0.7-1.3)
[2017-03-22] MEDS: TAMSULOSIN HCL 0.4 MG CAP.ER.24H (FP) PO SCH (09:25)
[2017-03-22] MEDS: LISINOPRIL 10 MG TABLET (FP) PO SCH (09:25)
[2017-03-22] MEDS: ASPIRIN COATED 81 MG TABLET.EC PO SCH (09:25)
[2017-03-22] MEDS: POLYETHYLENE GLYCOL 3350 119 GM BTL PO SCH (09:25)
[2017-03-22] MEDS: BACITRACIN 15 GM TUBE TOPICAL OINTMENT TP SCH (09:25)
--- NOTE | 2017-03-22 12:35 | PN ---
Progress Note, LEATHER COVERER - Note Progress Note: Oncology note reviewed and indication for TF, if RT/chemo is plan. May need TF if retrograde aspiration continues to be suspected. Seen pt again today, reclining flat. Counseled pt again on need to have meals OOB and remain upright for atleast an hour to reduce risk of retrograde aspiration. Selected Entries 03/21/17 03/21/17 03/21/17 02:00 06:00 10:00 Breakfast 100% Lunch Supper Temperature 98 F 97.5 F L 98.1 F 03/21/17 03/21/17 03/21/17 10:50 14:56 17:00 Breakfast 100% 100% Lunch 100% Supper Temperature 98.2 F 98.8 F 03/21/17 03/21/17 03/22/17 19:59 22:00 02:00 Breakfast Lunch Supper 100% Temperature 98 F 98.7 F 03/22/17 03/22/17 03/22/17 05:59 10:00 11:18 Breakfast 100% Lunch Supper Temperature 98.5 F [address] rec-Ensure Clears tid -600 cals/[address] re-evaluation for increase in TF, for additional nutritional intake.
--- NOTE | 2017-03-22 12:51 | PN ---
Progress Note, Physician Chief Complaint: tolerating liq diet well in sitting position no complaints - Current Medication List Current Medications: Active Medications Aspirin (Ecotrin -) 81 mg PO DAILY [facility] Last Admin: 03/22/17 09:25 Dose: 81 mg Atorvastatin Calcium (Lipitor -) 20 mg PO HS [facility] Last Admin: 03/21/17 21:51 Dose: 20 mg Bacitracin (Bacitracin -) 1 applic TP DAILY [facility] Last Admin: 03/22/17 09:25 Dose: 1 appful Sodium Chloride (Normal Saline -) 1,000 mls @ 42 mls/hr IV ASDIR [facility] Last Admin: 03/21/17 17:14 Dose: 42 mls/hr Ampicillin Sodium/Sulbactam (Sodium 3 gm/ Sodium Chloride) 100 mls @ 200 mls/ hr IVPB Q8H-IV [facility] Last Admin: 03/22/17 09:26 Dose: 200 mls/hr Lisinopril (Prinivil) 10 mg PO DAILY [facility] Last Admin: 03/22/17 09:25 Dose: 10 mg Metformin HCl (Glucophage -) 500 mg PO BID@0700,1630 [facility] Last Admin: 03/22/17 06:32 Dose: Not Given Polyethylene Glycol (Miralax (For Daily Use) -) 17 gm PO DAILY [facility] Last Admin: 03/22/17 09:25 Dose: Not Given Tamsulosin HCl (Flomax -) 0.4 mg PO DAILY@0830 [facility] Last Admin: 03/22/17 09:25 Dose: 0.4 mg - Objective Vital Signs: Vital Signs Temperature 98 F 03/22/17 10:00 Pulse Rate 75 03/22/17 10:00 Respiratory Rate 20 03/22/17 10:00 Blood Pressure 160/87 03/22/17 10:00 O2 Sat by Pulse Oximetry (%) 98 03/22/17 09:00 Constitutional: Yes: No Distress, Calm Eyes: Yes: WNL HENT: Yes: WNL Neck: Yes: WNL Cardiovascular: Yes: Pulse Irregular Respiratory: Yes: Other (rt ? crakles) Gastrointestinal: Yes: WNL ...Rectal Exam: Yes: Guaiac Negative Genitourinary: Yes: WNL Breast(s): Yes: WNL Musculoskeletal: Yes: WNL Extremities: Yes: WNL Edema: No Peripheral Pulses WNL: Yes Integumentary: Yes: WNL Neurological: Yes: Other (more coherant) Labs: CBC, BMP 03/22/17 05:50 03/22/17 05:50 INR, PTT INR 1.10 (0.82-1.09) 03/13/17 13:00 Problem List - Problems (1) CHF (congestive heart failure) Code(s): I50.9 - HEART FAILURE, UNSPECIFIED (2) HTN (hypertension) Code(s): I10 - ESSENTIAL (PRIMARY) HYPERTENSION (3) BPH (benign prostatic hyperplasia) Code(s): N40.0 - BENIGN PROSTATIC HYPERPLASIA WITHOUT LOWER URINRY TRACT SYMP (4) Afib Code(s): I48.91 - UNSPECIFIED ATRIAL FIBRILLATION (5) Diabetes 1.5, managed as type 2 Code(s): E10.9 - TYPE 1 DIABETES MELLITUS WITHOUT COMPLICATIONS (6) COPD (chronic obstructive pulmonary disease) Code(s): J44.9 - CHRONIC OBSTRUCTIVE PULMONARY DISEASE, UNSPECIFIED (7) Parkinson disease Code(s): G20 - PARKINSON'S DISEASE Assessment/Plan pulm to see pt cont po diet ct scans bone scan when barium cler colon cont whit as is
--- NOTE | 2017-03-22 14:14 | CONSULT ---
Consultation: REQUESTING PROVIDER: Sherlyn CONSULT REQUEST: We have been asked to medically evaluate this patient for L basal infiltrate. HISTORY OF PRESENT ILLNESS: Pt is an 81y/o gentleman with PMH DM, prostate issues, Parkinson's demetia who came to ED with weakness and inability to ambulate. Per records, pt was apparently somewhat disoriented (Pt does not mention this). Pt is being worked up by neuro, GI, ID, Heme/Onc for multiple medical problems. Pt is not short of breath at this time. Denies cough, headache, fever, dysphagia. CXR revealed L lung base infiltrate. REVIEW OF SYSTEMS: CONSTITUTIONAL: Absent: fever, chills, diaphoresis, generalized weakness, malaise, loss of appetite, weight change HEENT: Absent: rhinorrhea, nasal congestion, throat pain, throat swelling, difficulty swallowing, mouth swelling, ear pain, eye pain, visual changes CARDIOVASCULAR: Absent: chest pain, syncope, palpitations, irregular heart rate, lightheadedness , peripheral edema RESPIRATORY: Absent: cough, shortness of breath, dyspnea with exertion, orthopnea, wheezing, stridor, hemoptysis GASTROINTESTINAL: Absent: abdominal pain, abdominal distension, nausea, vomiting, diarrhea, constipation, melena, hematochezia GENITOURINARY: Absent: dysuria, frequency, urgency, hesitancy, hematuria, flank pain, genital pain MUSCULOSKELETAL: Absent: myalgia, arthralgia, joint swelling, back pain, neck pain SKIN: Absent: rash, itching, pallor HEMATOLOGIC/IMMUNOLOGIC: Absent: easy bleeding, easy bruising, lymphadenopathy, frequent infections ENDOCRINE: Absent: unexplained weight gain, unexplained weight loss, heat intolerance, cold intolerance NEUROLOGIC: Absent: headache, focal weakness or paresthesias, dizziness, unsteady gait, seizure, mental status changes, bladder or bowel incontinence PSYCHIATRIC: Absent: anxiety, depression, suicidal or homicidal ideation, hallucinations. PHYSICAL EXAMINATION Vital Signs - 24 hr 03/21/17 03/21/17 03/21/17 14:56 17:00 21:00 Temperature 98.2 F 98.8 F Pulse Rate 71 73 Respiratory 18 20 Rate Blood Pressure 153/90 163/94 O2 Sat by Pulse 97 Oximetry (%) 03/21/17 03/22/17 03/22/17 22:00 02:00 05:59 Temperature 98 F 98.7 F 98.5 F Pulse Rate 76 70 74 Respiratory 20 20 20 Rate Blood Pressure 143/96 136/80 162/85 O2 Sat by Pulse Oximetry (%) 03/22/17 03/22/17 09:00 10:00 Temperature 98 F Pulse Rate 75 Respiratory 20 Rate Blood Pressure 160/87 O2 Sat by Pulse 98 Oximetry (%) GENERAL: Awake, alert, no acute distress. HEAD: Normal with no signs of trauma. EYES: extraocular movements intact, sclera anicteric, conjunctiva clear. No lid lag. EARS, NOSE, THROAT: oropharynx clear without exudates. Moist mucous membranes. NECK: Normal range of motion, supple without lymphadenopathy, JVD, or masses. LUNGS: Breath sounds equal, clear to auscultation bilaterally. No wheezes, and no crackles. No accessory muscle use. HEART: Distant heart sounds. Regular rate and rhythm, normal S1 and S2 without murmur, rub or gallop. ABDOMEN: Soft, nontender, not distended, normoactive bowel sounds, no guarding, no rebound, no masses. No hepatomegaly or splenomegaly. MUSCULOSKELETAL: Normal range of motion at all joints. No bony deformities or tenderness. No CVA tenderness. UPPER EXTREMITIES: 2+ pulses, warm, well-perfused. No cyanosis. No clubbing. Cap refill <2 seconds. No peripheral edema. LOWER EXTREMITIES: 2+ pulses, warm, well-perfused. No calf tenderness. No peripheral edema. NEUROLOGICAL: Cranial nerves II-XII intact. Normal speech. Normal gait. PSYCHIATRIC: Cooperative. Good eye contact. Appropriate mood and affect. SKIN: Warm, dry, normal turgor, no rashes or lesions noted. Laboratory Results - last 24 hr 03/21/17 03/22/17 03/22/17 15:32 05:50 05:50 WBC 6.5 RBC 4.03 Hgb 12.0 Hct 35.6 MCV 88.3 MCH 29.8 MCHC 33.8 RDW 15.2 Plt Count 244 MPV 7.5 Neutrophils % 66.0 Lymphocytes % 17.2 Monocytes % 10.8 H Eosinophils % 5.3 H Basophils % 0.7 Sodium 141 Potassium 3.9 Chloride 105 Carbon Dioxide 27 Anion Gap 9 BUN 5 L Creatinine 0.7 POC Glucometer 186 Random Glucose 113 H Calcium 8.3 L 03/22/17 06:30 WBC RBC Hgb Hct MCV MCH MCHC RDW Plt Count MPV Neutrophils % Lymphocytes % Monocytes % Eosinophils % Basophils % Sodium Potassium Chloride Carbon Dioxide Anion Gap BUN Creatinine POC Glucometer 115 Random Glucose Calcium Active Medications Generic Name Dose Route Start Last Admin Trade Name Shanelle PRN Reason Stop Dose Admin Aspirin 81 mg 03/14/17 10:00 03/22/17 09:25 Ecotrin - PO 81 mg DAILY ISH Administration Atorvastatin Calcium 20 mg 03/15/17 22:00 03/21/17 21:51 Lipitor - PO 20 mg HS ISH Administration Bacitracin 1 applic 03/19/17 16:15 03/22/17 09:25 Bacitracin - TP 1 appful DAILY ISH Administration Sodium Chloride 1,000 mls @ 42 mls/hr 03/13/17 19:00 03/21/17 17:14 Normal Saline - IV 42 mls/hr ASDIR ISH Administration Ampicillin Sodium/Sulbactam 100 mls @ 200 mls/hr 03/20/17 14:30 03/22/17 09:26 Sodium 3 gm/ Sodium Chloride IVPB 200 mls/hr Q8H-IV ISH Administration Lisinopril 10 mg 03/14/17 10:00 03/22/17 09:25 Prinivil PO 10 mg DAILY ISH Administration Metformin HCl 500 mg 03/14/17 07:00 03/22/17 06:32 Glucophage - PO Not Given BID@0700,1630 ISH Polyethylene Glycol 17 gm 03/17/17 19:00 03/22/17 09:25 Miralax (For Daily Use) - PO Not Given DAILY ISH Tamsulosin HCl 0.4 mg 03/18/17 18:30 03/22/17 09:25 Flomax - PO 0.4 mg DAILY@0830 ISH Administration ASSESSMENT/PLAN: Pt is an 81y/o gentleman with PMH DM, prostate issues, Parkinson's demetia who came to ED with weakness and inability to ambulate admitted for workup of esophageal lesions and PD in addition to multiple chronic medical problems. #L lung base infiltrate -no SOB -afebrile -incidental finding -pt on ABx, being followed by ID -continue current mgt Thomas Cueto MD PGY-1 Dispo: We will continue to follow the patient. Thank you for this consultative opportunity. Visit type - Emergency Visit Emergency Visit: No - New Patient This patient is new to me today: No - Critical Care Critical Care patient: No
--- NOTE | 2017-03-22 14:52 | PN ---
Teaching Attending Note Name of Resident: Thomas Cueto ATTENDING PHYSICIAN STATEMENT I saw and evaluated the patient. I reviewed the resident's note and discussed the case with the resident. I agree with the resident's findings and plan as documented. Saskia ACEVEDO MD
--- NOTE | 2017-03-22 19:06 | PN ---
GI Progress Note Subjective: Patient appears comfortable - Objective Vital Signs: Vital Signs Temperature 97.5 F L 03/22/17 17:00 Pulse Rate 71 03/22/17 17:00 Respiratory Rate 20 03/22/17 17:00 Blood Pressure 157/89 03/22/17 17:00 O2 Sat by Pulse Oximetry (%) 98 03/22/17 09:00 Constitutional: Well Nourished Cardiovascular: Yes: Regular Rate and Rhythm Respiratory: Yes: CTA Bilaterally Gastrointestinal Inspection: Yes: WNL ...Auscultate: Yes: Normoactive Bowel Sounds ...Palpate: Yes: Soft. No: Tenderness ...Percussion: Yes: Dullness Labs: CBC, BMP 03/22/17 05:50 03/22/17 05:50 INR, PTT INR 1.10 (0.82-1.09) 03/13/17 13:00 Assessment/Plan Patient with poorly differentiated adenoca of esophagus. Oncology note appreciated Tolerating soft/full liquid diet at this time If PEG deemed necessary please call
--- NOTE | 2017-03-22 20:14 | PN ---
Progress Note (short form) - Note Progress Note: 81 year old gentleman admitted with,known to have Parkinson's dementiarecent CVA ,DM,PPM,hypertension,was experiencing abdominal discomfort and vomiting,found to have multiple esophageal masses,diagnosed to have esophageal carcinoma.On liquid diet. Active Medications Generic Name Dose Route Start Last Admin Trade Name Raffiq PRN Reason Stop Dose Admin Aspirin 81 mg 03/14/17 10:00 03/22/17 09:25 Ecotrin - PO 81 mg DAILY ISH Administration Atorvastatin Calcium 20 mg 03/15/17 22:00 03/21/17 21:51 Lipitor - PO 20 mg HS ISH Administration Bacitracin 1 applic 03/19/17 16:15 03/22/17 09:25 Bacitracin - TP 1 appful DAILY ISH Administration Sodium Chloride 1,000 mls @ 42 mls/hr 03/13/17 19:00 03/21/17 17:14 Normal Saline - IV 42 mls/hr ASDIR ISH Administration Ampicillin Sodium/Sulbactam 100 mls @ 200 mls/hr 03/20/17 14:30 03/22/17 17:16 Sodium 3 gm/ Sodium Chloride IVPB 200 mls/hr Q8H-IV ISH Administration Lisinopril 10 mg 03/14/17 10:00 03/22/17 09:25 Prinivil PO 10 mg DAILY ISH Administration Metformin HCl 500 mg 03/14/17 07:00 03/22/17 16:37 Glucophage - PO 500 mg BID@0700,1630 ISH Administration Polyethylene Glycol 17 gm 03/17/17 19:00 03/22/17 09:25 Miralax (For Daily Use) - PO Not Given DAILY ISH Tamsulosin HCl 0.4 mg 03/18/17 18:30 03/22/17 09:25 Flomax - PO 0.4 mg DAILY@0830 ISH Administration 81 year old male appears oriented,no pallor or cyanosis. Vital Signs - 8 hr 03/22/17 03/22/17 14:23 17:00 Temperature 98.4 F 97.5 F L Pulse Rate 73 71 Respiratory 18 20 Rate Blood Pressure 141/85 157/89 NECK: Supple,no JVD,carotids 2+ no bruits heard. HEART:PMI in the 5th space,heart sounds are distant,no murmur or gallops heard. LUNGS:Clear,decreased BS at the bases. ABDOMEN:Soft,obese,nontender.No organomegaly or masses felt. EXTREMITIES:No calf tenderness or dependent edema. CBC, BMP 03/20/17 05:35 03/20/17 05:35 A: 1.Acute nonhemorrhagic CVA. 2.Dysphagia, vomiting secondary to esophageal carcinoma. 3.H/O Hypertension. 4.Probable Atrial Fibrillation. 5.S/P PPM. 6.H/O Parkinsons dementia. 7.NIDDM. P: 1.Continue current therapy, 2. increase caloric intake 3.bed side PT.
--- NOTE | 2017-03-22 21:12 | PN ---
Progress Note (short form) - Note Progress Note: Radiation Oncology (full consult to follow) Pt seen, chart/films reviewed, spoke to pt/sister. 81yo male admitted with acute left temporal CVA with weakness and aphasia, dysphagia for solids prompted GI eval, EGD showed multiple distal esophageal adenocarcinomas. On po liquids. Aspiration PNA suspected, on abx. Asked by Dr. Zavala to evaluate. I agree with proceeding with extent of disease workup when feasible, i.e. CT CAP and bone scan. Treatment recommendations will follow once staging w/u is complete. RT and chemo would be considered if tumor is localized. Agree that feeding tube should be considered for nutritional supplementation given likely limited po intake from significant esophagitis that would occur with the extended RT field that would be needed. Await above evaluations.
[2017-03-22] MEDS: ATORVASTATIN CA 20 MG TABLET (FP) PO SCH (21:57)
[2017-03-23] MEDS ORDERED: PT OWN MED DRAWER 7, Y5N ONE (01:24)
[2017-03-23] MEDS: AMPICILLIN NA/SULBACTAM NA 3 GM in SODIUM CHLORIDE 100 ML IVPB SCH ×3 (01:35→17:26)
[2017-03-23] MEDS: metFORMIN HCL 500 MG TABLET (FP) PO SCH ×2 (06:37→16:14)
[2017-03-23 08:07] LABS: BASOPHIL 0.8 % (0-2.0); EOSINOPHIL 6.6 % (0-4.5); MCH 29.6 pg (25.7-33.7); MCHC 33.2 g/dl (32.0-35.9); MEAN CELL VOLUME 89.3 fl (80-96); MEAN PLT VOLUME 7.7 fl (7.5-11.1); NEUTROPHILS 61.5 % (42.8-82.8); PLATELET COUNT 250 K/MM3 (134-434); RDW 15.1 % (11.9-15.9); WHITE BLOOD COUNT 6.9 K/mm3 (4.0-10.0)
[2017-03-23 08:57] LABS: ANION GAP 9 (8-16); CALCIUM 8.4 mg/dL (8.5-10.1); CO2 27 mmol/L (21-32); GLUCOSE,RANDOM 111 mg/dL (74-106)
[2017-03-23 08:58] LABS: CREATININE 0.7 mg/dL (0.7-1.3)
[2017-03-23] MEDS: TAMSULOSIN HCL 0.4 MG CAP.ER.24H (FP) PO SCH (09:34)
--- NOTE | 2017-03-23 09:34 | CONS ---
DATE OF CONSULTATION: 03/22/2017 REFERRING PHYSICIAN: Jonas Zavala M.D. REASON FOR CONSULTATION: Obstructing esophageal cancer. HISTORY OF PRESENT ILLNESS: The patient is an 81-year-old gentleman who was admitted with weakness and change in neurologic status. Workup showed an acute left temporal non-hemorrhagic infarct. He presented with aphasia and possible right hemiparesis. He had dysphagia for solids and subsequently underwent a GI evaluation, including a barium swallow study, which showed a stricture in the distal esophagus. He underwent upper endoscopy by Dr. Barakat, which disclosed multiple esophageal lesions at 30 cm from the incisors and the GE junction. Pathology from biopsies of these masses showed adenocarcinoma at 25 cm, 35 cm and GE junction. He is followed by multiple specialists, including Speech [facility] Sw[facility]. He is receiving antibiotics for possible left lower lobe aspiration pneumonia. He is obtaining nutrition by p.o. liquids and supplements. He denies hoarseness, odynophagia, weight loss or change in appetite. PAST MEDICAL HISTORY: Atrial fibrillation, status post permanent pacemaker, COPD, CHF, diabetes type 2, Parkinson's dementia, old right occipital stroke. PAST SURGICAL HISTORY: As noted above. Left knee replacement. Appendectomy. ALLERGIES: No known drug allergies. CURRENT MEDICATIONS: Flomax, lisinopril, Unasyn, bacitracin, metformin, MiraLAX , Lipitor, baby aspirin. SOCIAL HISTORY: Unmarried, no children. A sister lives nearby. 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 He was born in [place]. He smoked 2 cigarettes a day until the age of 61. He drank alcohol on social occasions. FAMILY HISTORY: Mother had stomach cancer. REVIEW OF SYSTEMS: Denies history of radiation therapy, collagen vascular disease or autoimmune disease, in addition to that noted previously. The remainder of review of systems is negative. PHYSICAL EXAMINATION: General: A male appearing his age, in no acute distress, lying in a hospital bed. His sister is at the bedside. Vital Signs: Temperature 98.4, blood pressure 141/85, pulse 73, respiratory rate 18. SaO2 of 98% on room air. HEENT: Normocephalic, atraumatic. Moist mucous membranes. Anicteric sclerae. Clear oral cavity. Neck: No masses or thyromegaly. Chest: Left pacemaker. Lungs clear. Lymph: No axillary adenopathy. Cardiovascular: Paced and regular. Abdomen: Soft, nontender, nondistended. Extremities: No edema. Musculoskeletal: No spine tenderness. Neurologic: Alert, oriented, no dysphagia. Speech is fluent. Cranial nerves 2 through 12 are intact. No gross sensory or motor deficits. Gait was not tested. RADIOLOGIC DATA: Head CT on March 15, 2017: Non-hemorrhagic acute infarct in the left posterior temporal lobe involving the left superior temporal gyrus, superior margin of gyrus. No evidence of acute intracranial hemorrhage. Old infarct in the right occipital lobe. LABORATORY DATA: Electrolytes within normal limits, BUN 5, creatinine 0.7. Liver function tests within normal limits. CBC within normal limits. Urine culture positive for E. coli. PATHOLOGIC DATA: Esophageal biopsies as noted. IMPRESSION: An 81-year-old gentleman with Parkinson's, recent left temporal stroke, atrial fibrillation, status post pacemaker, UTI, LLL PNA, with partially obstructing multifocal esophageal adenocarcinoma of distal esophagus and gastroesophageal junction. He is tolerating p.o. liquids for nutrition. Aspiration pneumonia is suspected and he is on antibiotics. PLAN: I agree with Dr. Zavala's recommendation to proceed with an extent of disease workup when feasible. CT scan of the chest, abdomen and pelvis, and bone scan are appropriate, and possible PET-CT as outpatient. Further treatment recommendations will follow when staging workup is complete. Potentially, radiation therapy and chemotherapy would be considered if disease is localized. He probably would not be a good candidate for an esophageal stent, given the location of the obstruction, but I agree with GI follow-up to consider feeding tube placement if definitive treatment is considered, as he will need nutritional supplementation given the expected decreased p.o. intake from significant esophagitis that would occur with the extended radiation treatment field required. I will continue to follow with you and await the above evaluation. >30 min spent discussing plan with the patient and his sister. Thank you for asking me to see this patient. JAMEEL LATIF M.D. VIELKA/[id number] MTDD
[2017-03-23] MEDS: SODIUM CHLORIDE 1,000 ML IV SCH ×2 (09:35→21:46)
[2017-03-23] MEDS: POLYETHYLENE GLYCOL 3350 119 GM BTL PO SCH (09:35)
[2017-03-23] MEDS: LISINOPRIL 10 MG TABLET (FP) PO SCH (09:35)
[2017-03-23] MEDS: ASPIRIN COATED 81 MG TABLET.EC PO SCH (09:35)
[2017-03-23] MEDS: BACITRACIN 15 GM TUBE TOPICAL OINTMENT TP SCH (09:36)
--- NOTE | 2017-03-23 10:47 | PN ---
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 May need TF if retrograde aspiration continues to be suspected. Again,reclining flat after breakfast. Counseled pt again on need to have meals OOB and remain upright for atleast an hour to reduce risk of retrograde aspiration. Selected Entries 03/21/17 03/21/17 03/21/17 02:00 06:00 10:00 Breakfast 100% Lunch Supper Temperature 98 F 97.5 F L 98.1 F 03/21/17 03/21/17 03/21/17 10:50 14:56 17:00 Breakfast 100% 100% Lunch 100% Supper Temperature 98.2 F 98.8 F 03/21/17 03/21/17 03/22/17 19:59 22:00 02:00 Breakfast Lunch Supper 100% Temperature 98 F 98.7 F 03/22/17 03/22/17 03/22/17 05:59 10:00 11:18 Breakfast 100% Lunch Supper Temperature 98.5 F 98 F Selected Entries 03/22/17 03/22/17 03/22/17 02:00 05:59 10:00 Breakfast Lunch Supper Temperature 98.7 F 98.5 F 98 F 03/22/17 03/22/17 03/22/17 11:18 14:23 17:00 Breakfast 100% Lunch 100% Supper Temperature 98.4 F 97.5 F L 03/22/17 03/22/17 03/23/17 19:27 20:35 01:00 Breakfast Lunch Supper 100% Temperature 98.3 F 98.4 F 03/23/17 03/23/17 06:00 09:55 Breakfast 50% Lunch Supper Temperature 98.3 F Laboratory Tests 03/23/17 06:[address] rec-Ensure Clears tid -600 cals/[address] re-evaluation for increase in supplements, for additional nutritional intake. If aspiration is suspected, consider NPO. Clinically, he appears to be tolerating clear liquids, needs more nourishment, needs to be upright to reduce risk of retrograde aspiration if esophageal emptying is delayed. If plan is RT/ GT suggest continuing some PO trials to maintain swallowing function if possible , and tolerated.
--- NOTE | 2017-03-23 11:13 | EKG ---
Test Reason : Blood Pressure : / mmHG Vent. Rate : 070 BPM Atrial Rate : 066 BPM P-R Int : 000 ms QRS Dur : 156 ms QT Int : 466 ms P-R-T Axes : 000 050 052 degrees QTc Int : 503 ms Ventricular-paced rhythm ABNORMAL ECG WHEN COMPARED WITH ECG OF 13-MAR-2017 12:31, NO SIGNIFICANT CHANGE WAS FOUND Confirmed by JUSTINA CURTIS MD ([id number]) on 03/23/2017 11:13:11 AM Referred By: DELVIN FRANK Confirmed By:JUSTINA CURTIS MD
--- NOTE | 2017-03-23 11:23 | PN ---
Progress Note (short form) - Note Progress Note: 81 year old gentleman admitted with H/O recent CVA,known to have Parkinson's dementia,DM,hypertension,S/P PPM diagnosed to have esophageal carcinoma. Denies any further vomiting or abdominal pain.No SOB or PND. A: Active Medications Generic Name Dose Route Start Last Admin Trade Name Shanelle PRN Reason Stop Dose Admin Aspirin 81 mg 03/14/17 10:00 03/23/17 09:35 Ecotrin - PO 81 mg DAILY ISH Administration Atorvastatin Calcium 20 mg 03/15/17 22:00 03/22/17 21:57 Lipitor - PO 20 mg HS ISH Administration Bacitracin 1 applic 03/19/17 16:15 03/23/17 09:36 Bacitracin - TP 1 appful DAILY ISH Administration Sodium Chloride 1,000 mls @ 42 mls/hr 03/13/17 19:00 03/23/17 09:35 Normal Saline - IV Not Given ASDIR ISH Ampicillin Sodium/Sulbactam 100 mls @ 200 mls/hr 03/20/17 14:30 03/23/17 09:37 Sodium 3 gm/ Sodium Chloride IVPB 200 mls/hr Q8H-IV ISH Administration Lisinopril 10 mg 03/14/17 10:00 03/23/17 09:35 Prinivil PO 10 mg DAILY ISH Administration Metformin HCl 500 mg 03/14/17 07:00 03/23/17 06:37 Glucophage - PO 500 mg BID@0700,1630 ISH Administration Polyethylene Glycol 17 gm 03/17/17 19:00 03/23/17 09:35 Miralax (For Daily Use) - PO Not Given DAILY ISH Tamsulosin HCl 0.4 mg 03/18/17 18:30 03/23/17 09:34 Flomax - PO 0.4 mg DAILY@0830 ISH Administration 81 year old male appears oriented,no pallor or cyanosis. Vital Signs - 8 hr 03/23/17 03/23/17 03/23/17 06:00 09:00 10:00 Temperature 98.3 F 98 F Pulse Rate 71 70 Respiratory 20 18 Rate Blood Pressure 147/90 152/85 O2 Sat by Pulse 96 Oximetry (%) NECK: Supple,no JVD,carotids 2+ no bruits heard. HEART:PMI in the 5th space,heart sounds are distant,no murmur or gallops heard. LUNGS:Clear,decreased BS at the bases. ABDOMEN:Soft,obese,nontender.No organomegaly or masses felt. EXTREMITIES:No calf tenderness or dependent edema. CBC, BMP 03/23/17 06:10 03/23/17 06:00 A: 1.Acute nonhemorrhagic CVA. 2.Dysphagia, vomiting secondary to esophageal carcinoma. 3.H/O Hypertension. 4.Probable Atrial Fibrillation. 5.S/P PPM. 6.H/O Parkinsons dementia. 7.NIDDM. P: 1.Continue current therapy, 2.Increase ambulation.
--- NOTE | 2017-03-23 12:21 | PN ---
Progress Note, Physician History of Present Illness: pulmonary alert,sitting up min bed,-resp distress - Current Medication List Current Medications: Active Medications Aspirin (Ecotrin -) 81 mg PO DAILY PENDING SALE TO [facility] Last Admin: 03/23/17 09:35 Dose: 81 mg Atorvastatin Calcium (Lipitor -) 20 mg PO HS PENDING SALE TO [facility] Last Admin: 03/22/17 21:57 Dose: 20 mg Bacitracin (Bacitracin -) 1 applic TP DAILY [facility]ENDING S[facility] TO [facility] Last Admin: 03/23/17 09:36 Dose: 1 appful Sodium Chloride (Normal Saline -) 1,000 mls @ 42 mls/hr IV ASDIR PENDING SALE TO [facility] Last Admin: 03/23/17 09:35 Dose: Not Given Ampicillin Sodium/Sulbactam (Sodium 3 gm/ Sodium Chloride) 100 mls @ 200 mls/ hr IVPB Q8H-IV PENDING SALE TO [facility] Last Admin: 03/23/17 09:37 Dose: 200 mls/hr Lisinopril (Prinivil) 10 mg PO DAILY [facility]END[facility] Last Admin: 03/23/17 09:35 Dose: 10 mg Metformin HCl (Glucophage -) 500 mg PO BID@0700,1630 PENDING SALE TO [facility] Last Admin: 03/23/17 06:37 Dose: 500 mg Polyethylene Glycol (Miralax (For Daily Use) -) 17 gm PO DAILY [facility]END[facility] Last Admin: 03/23/17 09:35 Dose: Not Given Tamsulosin HCl (Flomax -) 0.4 mg PO DAILY@0830 PEND[facility] S[facility] TO [facility] Last Admin: 03/23/17 09:34 Dose: 0.4 mg - Objective Vital Signs: Vital Signs Temperature 98 F 03/23/17 10:00 Pulse Rate 70 03/23/17 10:00 Respiratory Rate 18 03/23/17 10:00 Blood Pressure 152/85 03/23/17 10:00 O2 Sat by Pulse Oximetry (%) 96 03/23/17 09:00 Constitutional: Yes: Well Nourished, Calm Eyes: Yes: WNL HENT: Yes: WNL Neck: Yes: WNL Cardiovascular: Yes: Regular Rate and Rhythm, S1, S2 Respiratory: Yes: Rales (few basilar crackles) Gastrointestinal: Yes: Normal Bowel Sounds, Soft Extremities: Yes: WNL Edema: No Neurological: Yes: Tremors Labs: CBC, BMP 03/23/17 06:10 03/23/17 06:00 INR, PTT INR 1.10 (0.82-1.09) 03/13/17 13:00 Problem List - Problems (1) Afib Code(s): I48.91 - UNSPECIFIED ATRIAL FIBRILLATION (2) COPD (chronic obstructive pulmonary disease) Code(s): J44.9 - CHRONIC OBSTRUCTIVE PULMONARY DISEASE, UNSPECIFIED (3) Dysphagia Code(s): R13.10 - DYSPHAGIA, UNSPECIFIED (4) HTN (hypertension) Code(s): I10 - ESSENTIAL (PRIMARY) HYPERTENSION (5) Parkinson disease Code(s): G20 - PARKINSON'S DISEASE (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 LLL INFILTRATE ESOPHAGEAL CA PARKINSONS AFIB ACUTE CVA DEMENTIA HTN DM SMITH O2 PRN ANTIBIOTICS PER ID CHEST CT ASPIRATION PRECAUTIONS DR HOOKS
--- NOTE | 2017-03-23 14:33 | PN ---
Progress Note, Physician History of Present Illness: stable no new issues - Current Medication List Current Medications: Active Medications Aspirin (Ecotrin -) 81 mg PO DAILY ON [facility] OF [facility] Last Admin: 03/23/17 09:35 Dose: 81 mg Atorvastatin Calcium (Lipitor -) 20 mg PO HS ON [facility] OF [facility] Last Admin: 03/22/17 21:57 Dose: 20 mg Bacitracin (Bacitracin -) 1 applic TP DAILY ON [facility] Last Admin: 03/23/17 09:36 Dose: 1 appful Sodium Chloride (Normal Saline -) 1,000 mls @ 42 mls/hr IV ASDIR ON [facility] OF [facility] Last Admin: 03/23/17 09:35 Dose: Not Given Ampicillin Sodium/Sulbactam (Sodium 3 gm/ Sodium Chloride) 100 mls @ 200 mls/ hr IVPB Q8H-IV ON [facility] OF [facility] Last Admin: 03/23/17 09:37 Dose: 200 mls/hr Lisinopril (Prinivil) 10 mg PO DAILY [facility] Last Admin: 03/23/17 09:35 Dose: 10 mg Metformin HCl (Glucophage -) 500 mg PO BID@0700,1630 ON [facility] Last Admin: 03/23/17 06:37 Dose: 500 mg Polyethylene Glycol (Miralax (For Daily Use) -) 17 gm PO DAILY ON [facility] Last Admin: 03/23/17 09:35 Dose: Not Given Tamsulosin HCl (Flomax -) 0.4 mg PO DAILY@0830 ON [facility] OF [facility] Last Admin: 03/23/17 09:34 Dose: 0.4 mg - Objective Vital Signs: Vital Signs Temperature 98.9 F 03/23/17 14:21 Pulse Rate 70 03/23/17 14:21 Respiratory Rate 18 03/23/17 14:21 Blood Pressure 126/81 03/23/17 14:21 O2 Sat by Pulse Oximetry (%) 96 03/23/17 09:00 Constitutional: Yes: No Distress, Calm Cardiovascular: Yes: Regular Rate and Rhythm Respiratory: Yes: Regular, CTA Bilaterally Gastrointestinal: Yes: Normal Bowel Sounds, Soft Musculoskeletal: Yes: WNL Extremities: Yes: WNL Neurological: Yes: Alert, Oriented Psychiatric: Yes: Alert Labs: CBC, BMP 03/23/17 06:10 03/23/17 06:00 INR, PTT INR 1.10 (0.82-1.09) 03/13/17 13:00 Assessment/Plan Problem List - Problems (1) CHF (congestive heart failure) Code(s): I50.9 - HEART FAILURE, UNSPECIFIED (2) HTN (hypertension) Code(s): I10 - ESSENTIAL (PRIMARY) HYPERTENSION (3) BPH (benign prostatic hyperplasia) Code(s): N40.0 - BENIGN PROSTATIC HYPERPLASIA WITHOUT LOWER URINRY TRACT SYMP (4) Afib Code(s): I48.91 - UNSPECIFIED ATRIAL FIBRILLATION (5) Diabetes 1.5, managed as type 2 Code(s): E10.9 - TYPE 1 DIABETES MELLITUS WITHOUT COMPLICATIONS (6) COPD (chronic obstructive pulmonary disease) Code(s): J44.9 - CHRONIC OBSTRUCTIVE PULMONARY DISEASE, UNSPECIFIED (7) Parkinson disease Code(s): G20 - PARKINSON'S DISEASE pneumonia--left lower infiltrate plan continue current mgmt will start deescalating from iv abx
[2017-03-23] MEDS: ATORVASTATIN CA 20 MG TABLET (FP) PO SCH (21:45)
--- NOTE | 2017-03-23 21:48 | PN ---
Progress Note (short form) - Note Progress Note: Patient seen and examined confused AFVSS Cor: RSR, No murmurs, No gallops Lungs: Clear to P&A Abd: Soft, Normal bowel sounds, No organomegaly Ext:No significant edema Skin: No rashes, Integument intact Labs/meds reviewed A/P 81 year old with 2 foci of adenocarcinoma of esophagus at 30 cm and at G-E junction Masses measure 4-5 cm in size by endoscopic report . mother had stomach cancer . 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 Aspiration pneumonia pneumonia on antibiotics per I. D. Diabetes Mellitus (II) Hypertension Pacemaker CT a/p--- thickening of GE junction, thickening of gall bladder, prostate enlargement f/u chest CT will check bone scan
[2017-03-24] MEDS ORDERED: PT OWN MED DRAWER 7, Y5N ONE ×2 (02:05→17:03)
[2017-03-24] MEDS: AMPICILLIN NA/SULBACTAM NA 3 GM in SODIUM CHLORIDE 100 ML IVPB SCH ×3 (02:05→17:08)
[2017-03-24] MEDS: metFORMIN HCL 500 MG TABLET (FP) PO SCH ×2 (06:19→17:08)
[2017-03-24 08:13] LABS: BASOPHIL 0.6 % (0-2.0); EOSINOPHIL 8.3 % (0-4.5); MCH 29.5 pg (25.7-33.7); MCHC 33.3 g/dl (32.0-35.9); MEAN CELL VOLUME 88.7 fl (80-96); MEAN PLT VOLUME 7.8 fl (7.5-11.1); PLATELET COUNT 235 K/MM3 (134-434); WHITE BLOOD COUNT 6.5 K/mm3 (4.0-10.0)
[2017-03-24 08:38] LABS: ANION GAP 9 (8-16); CO2 26 mmol/L (21-32); GLUCOSE,RANDOM 103 mg/dL (74-106)
[2017-03-24 08:39] LABS: CREATININE 0.7 mg/dL (0.7-1.3)
[2017-03-24] MEDS: TAMSULOSIN HCL 0.4 MG CAP.ER.24H (FP) PO SCH (09:47)
[2017-03-24] MEDS: BACITRACIN 15 GM TUBE TOPICAL OINTMENT TP SCH (09:48)
[2017-03-24] MEDS: LISINOPRIL 10 MG TABLET (FP) PO SCH (09:48)
[2017-03-24] MEDS: ASPIRIN COATED 81 MG TABLET.EC PO SCH (09:48)
[2017-03-24] MEDS: POLYETHYLENE GLYCOL 3350 119 GM BTL PO SCH (09:48)
--- NOTE | 2017-03-24 10:30 | PN ---
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 Selected Entries 03/23/17 03/23/17 03/23/17 01:00 06:00 09:55 Breakfast 50% Lunch Supper Temperature 98.4 F 98.3 F 03/23/17 03/23/17 03/23/17 10:00 14:21 17:00 Breakfast Lunch 50% Supper Temperature 98 F 98.9 F 97.4 F L 03/23/17 03/23/17 03/24/17 21:00 21:51 02:00 Breakfast Lunch Supper 75% Temperature 98.4 F 98 F 03/24/17 06:00 Breakfast Lunch Supper Temperature 98.6 F Laboratory Tests 03/23/17 03/24/17 06:10 06:00 WBC 6.9 6.5 Pt reported to tolerate solids yesterday for 3 meals and this morning. Nursing contacted me regarding diet order placed. Diagnosed with 2 foci of adenocarcinoma of esophagus at 30 cm and at G-E junction Masses measure 4-5 cm in size by endoscopic report. Incidental finding of LLL infiltrate on CXR. Afebrile. WBC ok. Not congested.Empirical a/b therapy. Per nursing and pt, no vomiting or increased congestion reported or observed. Pt is OOB for meals and after meals, per nursing. Per pt, pt did not have symptoms of dysphagia, congestion, vomiting before admission. Following admission, with acute cva, increased congestion and c/o "food not going down" prompted MBS with esophagus, with subsequent EGD, CT chest etc. Pt has been tolerating clear liquids with Ensure Clears tid -600 cals /21 gms protein.Per 03/22, RD suggested 1)PPN w/liquid MVI 2)increasing Ensure Clears to 5/day=1,000 cals/35 gms pro If pt continues to clinically tolerate solids, with no increasing congestion, hypersalivation, fevers, abnormal cxr/wbc, then continue diet with careful monitoring. Suggest pt be OOB for all meals and 1 hour after meals, alternating solids with liquids and completing meals with liquids. Pt is presently a full code. w/u continues regarding plan to treat adenocarcinoma, If RT/GT is plan,suggest continuing some PO trials to maintain swallowing function if possible, and tolerated.
--- NOTE | 2017-03-24 12:00 | PN ---
Physical Exam: SUBJECTIVE: Patient seen and examined at bedside. Pt is frustrated by his condition. Otherwise, no complaints. Denies headache, cp, abd pain, shortness of breath. OBJECTIVE: Vital Signs Period Temp Pulse Resp BP Sys/Tovar Pulse Ox Last 24 Hr 97.4 F-98.9 F 70-72 18-20 122-148/74-88 98 GENERAL: The patient is awake, alert, and fully oriented, in no acute distress. HEAD: Normal with no signs of trauma. EYES: sclera anicteric, conjunctiva clear. No ptosis. ENT: oropharynx clear without exudates, moist mucous membranes. NECK: Trachea midline, full range of motion, supple. LUNGS: Breath sounds equal, clear to auscultation bilaterally, no wheezes, no crackles, no accessory muscle use. HEART: Regular rate and rhythm, S1, S2 2/6 soft systolic murmur at RSB,no rub or gallop. ABDOMEN: Soft, nontender, nondistended, normoactive bowel sounds, no guarding, no rebound, no hepatosplenomegaly, no masses. EXTREMITIES: 2+ pulses, warm, well-perfused, no edema. NEUROLOGICAL: Cranial nerves II through XII grossly intact. Normal speech, gait not observed. PSYCH: Normal mood, normal affect. SKIN: Warm, dry, normal turgor, no rashes or lesions noted Laboratory Results - last 24 hr 03/23/17 03/24/17 03/24/17 17:25 02:11 06:00 WBC 6.5 RBC 4.00 Hgb 11.8 Hct 35.5 MCV 88.7 MCH 29.5 MCHC 33.3 RDW 15.0 Plt Count 235 MPV 7.8 Neutrophils % 66.0 Lymphocytes % 15.9 D Monocytes % 9.2 Eosinophils % 8.3 H Basophils % 0.6 Sodium Potassium Chloride Carbon Dioxide Anion Gap BUN Creatinine POC Glucometer 218 108 Random Glucose Calcium 03/24/17 03/24/17 06:00 06:26 WBC RBC Hgb Hct MCV MCH MCHC RDW Plt Count MPV Neutrophils % Lymphocytes % Monocytes % Eosinophils % Basophils % Sodium 141 Potassium 3.8 Chloride 106 Carbon Dioxide 26 Anion Gap 9 BUN 7 Creatinine 0.7 POC Glucometer 102 Random Glucose 103 Calcium 8.0 L Active Medications Generic Name Dose Route Start Last Admin Trade Name Freq PRN Reason Stop Dose Admin Aspirin 81 mg 03/14/17 10:00 03/24/17 09:48 Ecotrin - PO 81 mg DAILY [facility] Administration Atorvastatin Calcium 20 mg 03/15/17 22:00 03/23/17 21:45 Lipitor - PO 20 mg HS [facility] Administration Bacitracin 1 applic 03/19/17 16:15 03/24/17 09:48 Bacitracin - TP 1 applic DAILY [facility] Administration Sodium Chloride 1,000 mls @ 42 mls/hr 03/13/17 19:00 03/23/17 21:46 Normal Saline - IV Not Given ASDIR [facility] Ampicillin Sodium/Sulbactam 100 mls @ 200 mls/hr 03/20/17 14:30 03/24/17 02:05 Sodium 3 gm/ Sodium Chloride IVPB 200 mls/hr Q8H-IV [facility] Administration Lisinopril 10 mg 03/14/17 10:00 03/24/17 09:48 Prinivil PO 10 mg DAILY [facility] Administration Metformin HCl 500 mg 03/14/17 07:00 03/24/17 06:19 Glucophage - PO Not Given BID@0700,1630 [facility] Polyethylene Glycol 17 gm 03/17/17 19:00 03/24/17 09:48 Miralax (For Daily Use) - PO Not Given DAILY [facility] Tamsulosin HCl 0.4 mg 03/18/17 18:30 03/24/17 09:47 Flomax - PO 0.4 mg DAILY@0830 [facility] Administration ASSESSMENT/PLAN: Pt is an 81y/o gentleman with PMH DM, prostate issues, Parkinson's demetia who came to ED with weakness and inability to ambulate admitted for workup of esophageal lesions and PD in addition to multiple chronic medical problems. #L lung base infiltrate -no SOB -afebrile, without leukocytosis -incidental finding -CT neg for PNA -pt on ABx, being followed by ID -continue current mgt Thomas Cueto MD PGY-1 Pulmonology service Dispo: We will continue to follow the patient. Thank you for this consultative opportunity. Visit type - Emergency Visit Emergency Visit: No - New Patient This patient is new to me today: No - Critical Care Critical Care patient: No - Discharge Referral Referred to [facility] No
--- NOTE | 2017-03-24 12:42 | PN ---
Teaching Attending Note Name of Resident: Thomas Cueto ATTENDING PHYSICIAN STATEMENT I saw and evaluated the patient. I reviewed the resident's note and discussed the case with the resident. I agree with the resident's findings and plan as documented. 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 Assessment/Plan IMP ESOPHAGEAL CA PARKINSONS AFIB ACUTE CVA DEMENTIA HTN DM SMITH O2 PRN CONSIDER DISCONTINUE ANTIBIOTICS ASPIRATION PRECAUTIONS DR HOOKS Problem List - Problems (1) Afib Code(s): I48.91 - UNSPECIFIED ATRIAL FIBRILLATION (2) COPD (chronic obstructive pulmonary disease) Code(s): J44.9 - CHRONIC OBSTRUCTIVE PULMONARY DISEASE, UNSPECIFIED (3) Dysphagia Code(s): R13.10 - DYSPHAGIA, UNSPECIFIED (4) HTN (hypertension) Code(s): I10 - ESSENTIAL (PRIMARY) HYPERTENSION (5) Parkinson disease Code(s): G20 - PARKINSON'S DISEASE (6) 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
--- NOTE | 2017-03-24 14:03 | PN ---
Progress Note, Physician Chief Complaint: comfotable downstaises for nuclear bone scan - Current Medication List Current Medications: Active Medications Aspirin (Ecotrin -) 81 mg PO DAILY [facility] Last Admin: 03/24/17 09:48 Dose: 81 mg Atorvastatin Calcium (Lipitor -) 20 mg PO HS [facility] Last Admin: 03/23/17 21:45 Dose: 20 mg Bacitracin (Bacitracin -) 1 applic TP DAILY [facility] Last Admin: 03/24/17 09:48 Dose: 1 applic Sodium Chloride (Normal Saline -) 1,000 mls @ 42 mls/hr IV ASDIR [facility] Last Admin: 03/23/17 21:46 Dose: Not Given Ampicillin Sodium/Sulbactam (Sodium 3 gm/ Sodium Chloride) 100 mls @ 200 mls/ hr IVPB Q8H-IV [facility] Last Admin: 03/24/17 02:05 Dose: 200 mls/hr Lisinopril (Prinivil) 10 mg PO DAILY [facility] Last Admin: 03/24/17 09:48 Dose: 10 mg Metformin HCl (Glucophage -) 500 mg PO BID@0700,1630 [facility] Last Admin: 03/24/17 06:19 Dose: Not Given Polyethylene Glycol (Miralax (For Daily Use) -) 17 gm PO DAILY [facility] Last Admin: 03/24/17 09:48 Dose: Not Given Tamsulosin HCl (Flomax -) 0.4 mg PO DAILY@0830 [facility] Last Admin: 03/24/17 09:47 Dose: 0.4 mg - Objective Vital Signs: Vital Signs Temperature 97.8 F 03/24/17 10:00 Pulse Rate 98 H 03/24/17 10:00 Respiratory Rate 20 03/24/17 10:00 Blood Pressure 120/54 03/24/17 10:00 O2 Sat by Pulse Oximetry (%) 98 03/24/17 09:00 Labs: CBC, BMP 03/24/17 06:00 03/24/17 06:00 INR, PTT INR 1.10 (0.82-1.09) 03/13/17 13:00 Problem List - Problems (1) CHF (congestive heart failure) Code(s): I50.9 - HEART FAILURE, UNSPECIFIED (2) HTN (hypertension) Code(s): I10 - ESSENTIAL (PRIMARY) HYPERTENSION (3) BPH (benign prostatic hyperplasia) Code(s): N40.0 - BENIGN PROSTATIC HYPERPLASIA WITHOUT LOWER URINRY TRACT SYMP (4) Afib Code(s): I48.91 - UNSPECIFIED ATRIAL FIBRILLATION (5) Diabetes 1.5, managed as type 2 Code(s): E10.9 - TYPE 1 DIABETES MELLITUS WITHOUT COMPLICATIONS (6) COPD (chronic obstructive pulmonary disease) Code(s): J44.9 - CHRONIC OBSTRUCTIVE PULMONARY DISEASE, UNSPECIFIED (7) Parkinson disease Code(s): G20 - PARKINSON'S DISEASE Assessment/Plan after scan bone we need plan regarding tx r/t and chemo both ? f/u w jonathan onco do we tx josue or nn h or out pt ??
--- NOTE | 2017-03-24 16:32 | PN ---
Progress Note, Physician History of Present Illness: stable no new issues patient bone scan no complaints - Current Medication List Current Medications: Active Medications Aspirin (Ecotrin -) 81 mg PO DAILY [facility] Last Admin: 03/24/17 09:48 Dose: 81 mg Atorvastatin Calcium (Lipitor -) 20 mg PO HS [facility] Last Admin: 03/23/17 21:45 Dose: 20 mg Bacitracin (Bacitracin -) 1 applic TP DAILY [facility] Last Admin: 03/24/17 09:48 Dose: 1 applic Sodium Chloride (Normal Saline -) 1,000 mls @ 42 mls/hr IV ASDIR [facility] Last Admin: 03/23/17 21:46 Dose: Not Given Ampicillin Sodium/Sulbactam (Sodium 3 gm/ Sodium Chloride) 100 mls @ 200 mls/ hr IVPB Q8H-IV [facility] Last Admin: 03/24/17 15:08 Dose: 200 mls/hr Lisinopril (Prinivil) 10 mg PO DAILY [facility] Last Admin: 03/24/17 09:48 Dose: 10 mg Metformin HCl (Glucophage -) 500 mg PO BID@0700,1630 [facility] Last Admin: 03/24/17 06:19 Dose: Not Given Polyethylene Glycol (Miralax (For Daily Use) -) 17 gm PO DAILY [facility] Last Admin: 03/24/17 09:48 Dose: Not Given Tamsulosin HCl (Flomax -) 0.4 mg PO DAILY@0830 [facility] Last Admin: 03/24/17 09:47 Dose: 0.4 mg - Objective Vital Signs: Vital Signs Temperature 99 F 03/24/17 14:00 Pulse Rate 70 03/24/17 14:00 Respiratory Rate 16 03/24/17 14:00 Blood Pressure 123/71 03/24/17 14:00 O2 Sat by Pulse Oximetry (%) 98 03/24/17 09:00 Constitutional: Yes: No Distress, Calm Cardiovascular: Yes: Regular Rate and Rhythm Respiratory: Yes: Regular, CTA Bilaterally Gastrointestinal: Yes: Normal Bowel Sounds, Soft Musculoskeletal: Yes: WNL Extremities: Yes: WNL Neurological: Yes: Alert, Oriented Psychiatric: Yes: Alert Labs: CBC, BMP 03/24/17 06:00 03/24/17 06:00 INR, PTT INR 1.10 (0.82-1.09) 03/13/17 13:00 Assessment/Plan Problem List - Problems (1) CHF (congestive heart failure) Code(s): I50.9 - HEART FAILURE, UNSPECIFIED (2) HTN (hypertension) Code(s): I10 - ESSENTIAL (PRIMARY) HYPERTENSION (3) BPH (benign prostatic hyperplasia) Code(s): N40.0 - BENIGN PROSTATIC HYPERPLASIA WITHOUT LOWER URINRY TRACT SYMP (4) Afib Code(s): I48.91 - UNSPECIFIED ATRIAL FIBRILLATION (5) Diabetes 1.5, managed as type 2 Code(s): E10.9 - TYPE 1 DIABETES MELLITUS WITHOUT COMPLICATIONS (6) COPD (chronic obstructive pulmonary disease) Code(s): J44.9 - CHRONIC OBSTRUCTIVE PULMONARY DISEASE, UNSPECIFIED (7) Parkinson disease Code(s): G20 - PARKINSON'S DISEASE pneumonia--left lower infiltrate plan continue current mgmt will start deescalating from iv abx patient will be switched to oral augmentin from tomorrow await for final plan to be in place
--- NOTE | 2017-03-24 18:10 | PN ---
Progress Note (short form) - Note Progress Note: patient seen and examined Discussed diagnosis of esophageal cancer at 2 sites with patient and sister at bedside. Discussed possible RT/Chemotherapy. CT scan with paraesophageal nodes. Distended GB with stones. Small pericardial effusion and pleural effusion. Awaiting bone scan results. Able to eat Last Vital Signs Temp Pulse Resp BP Pulse Ox 99 F 70 16 123/71 98 03/24/17 14:00 03/24/17 14:00 03/24/17 14:00 03/24/17 14:00 03/24/17 09:00 Lungs - decreased breased sounds, rhonchi Cor- paced rhythm Abdomen- soft Ext- LE edema CBC, BMP 03/24/17 06:00 03/24/17 06:00 Current Medications Generic Name Dose Route Start Last Admin Trade Name Freq PRN Reason Stop Dose Admin Aspirin 81 mg 03/14/17 10:00 03/24/17 09:48 Ecotrin - PO 81 mg DAILY [facility] Administration Atorvastatin Calcium 20 mg 03/15/17 22:00 03/23/17 21:45 Lipitor - PO 20 mg HS [facility] Administration Bacitracin 1 applic 03/19/17 16:15 03/24/17 09:48 Bacitracin - TP 1 applic DAILY [facility] Administration Sodium Chloride 1,000 mls @ 42 mls/hr 03/13/17 19:00 03/23/17 21:46 Normal Saline - IV Not Given ASDIR [facility] Ampicillin Sodium/Sulbactam 100 mls @ 200 mls/hr 03/20/17 14:30 03/24/17 17:08 Sodium 3 gm/ Sodium Chloride IVPB 200 mls/hr Q8H-IV [facility] Administration Lisinopril 10 mg 03/14/17 10:00 03/24/17 09:48 Prinivil PO 10 mg DAILY [facility] Administration Metformin HCl 500 mg 03/14/17 07:00 03/24/17 17:08 Glucophage - PO Not Given BID@0700,1630 [facility] Polyethylene Glycol 17 gm 03/17/17 19:00 03/24/17 09:48 Miralax (For Daily Use) - PO Not Given DAILY [facility] Tamsulosin HCl 0.4 mg 03/18/17 18:30 03/24/17 09:47 Flomax - PO 0.4 mg DAILY@0830 [facility] Administration Impression: Esophageal ca Para-esophageal nodes Pericardial effusion _ spoke with cardiology and will order ECHO Await bone scan Will arrange for ACS and Social service input as patient lives alone. Will discuss further with RT after completion of work up.
--- NOTE | 2017-03-24 18:23 | PN ---
Progress Note (short form) - Note Progress Note: 81 year old gentleman admitted with,known case of hypertension,NIDDM, Parkinson' s dementia,S/P PPM,S/P CVA,diagnosed to have esophageal carcinoma and undergoing work Able to eat pasta today, no SOB,no chest pain,tolerating therapy. Active Medications Generic Name Dose Route Start Last Admin Trade Name Shanelle PRN Reason Stop Dose Admin Aspirin 81 mg 03/14/17 10:00 03/23/17 09:35 Ecotrin - PO 81 mg DAILY [facility] Administration Atorvastatin Calcium 20 mg 03/15/17 22:00 03/22/17 21:57 Lipitor - PO 20 mg HS [facility] Administration Bacitracin 1 applic 03/19/17 16:15 03/23/17 09:36 Bacitracin - TP 1 appful DAILY [facility] Administration Sodium Chloride 1,000 mls @ 42 mls/hr 03/13/17 19:00 03/23/17 09:35 Normal Saline - IV Not Given ASDIR [facility] Ampicillin Sodium/Sulbactam 100 mls @ 200 mls/hr 03/20/17 14:30 03/23/17 09:37 Sodium 3 gm/ Sodium Chloride IVPB 200 mls/hr Q8H-IV [facility] Administration Lisinopril 10 mg 03/14/17 10:00 03/23/17 09:35 Prinivil PO 10 mg DAILY [facility] Administration Metformin HCl 500 mg 03/14/17 07:00 03/23/17 06:37 Glucophage - PO 500 mg BID@0700,1630 [facility] Administration Polyethylene Glycol 17 gm 03/17/17 19:00 03/23/17 09:35 Miralax (For Daily Use) - PO Not Given DAILY [facility] Tamsulosin HCl 0.4 mg 03/18/17 18:30 03/23/17 09:34 Flomax - PO 0.4 mg DAILY@0830 [facility] Administration 81 year old male appears oriented,no pallor or cyanosis. Vital Signs - 8 hr 03/24/17 14:00 Temperature 99 F Pulse Rate 70 Respiratory 16 Rate Blood Pressure 123/71 NECK: Supple,no JVD,carotids 2+ no bruits heard. HEART:PMI in the 5th space,heart sounds are distant,no murmur or gallops heard. LUNGS:Clear,decreased BS at the bases. ABDOMEN:Soft,obese,nontender.No organomegaly or masses felt. EXTREMITIES:No calf tenderness or dependent edema. CBC, BMP 03/24/17 06:00 03/24/17 06:00 A: 1.Extensive esophageal carcinoma. 2.S/P CVA 3.H/O Hypertension. 4.Probable Atrial Fibrillation. 5.S/P PPM. 6.H/O Parkinsons dementia. 7.NIDDM. P: 1.Continue current therapy, 2.Increase ambulation. 3.Work up in progress to determine if there metastatic disease.
[2017-03-24] MEDS: ATORVASTATIN CA 20 MG TABLET (FP) PO SCH (21:46)
[2017-03-25] MEDS ORDERED: PT OWN MED DRAWER 7, Y5N ONE ×2 (03:12→07:55)
[2017-03-25] MEDS: AMPICILLIN NA/SULBACTAM NA 3 GM in SODIUM CHLORIDE 100 ML IVPB SCH ×2 (03:14→09:39)
[2017-03-25] MEDS: metFORMIN HCL 500 MG TABLET (FP) PO SCH ×2 (06:26→17:46)
[2017-03-25] MEDS: TAMSULOSIN HCL 0.4 MG CAP.ER.24H (FP) PO SCH (09:39)
[2017-03-25] MEDS: POLYETHYLENE GLYCOL 3350 119 GM BTL PO SCH (09:39)
[2017-03-25] MEDS: LISINOPRIL 10 MG TABLET (FP) PO SCH (09:39)
[2017-03-25] MEDS: ASPIRIN COATED 81 MG TABLET.EC PO SCH (09:39)
[2017-03-25] MEDS: BACITRACIN 15 GM TUBE TOPICAL OINTMENT TP SCH (09:39)
--- NOTE | 2017-03-25 10:27 | PN ---
Progress Note, Physician History of Present Illness: Pt seen and examined. Records reviewed. States he feels well overall. Denies dyspnea/cough at this time. No specific complaints. - Current Medication List Current Medications: Active Medications Aspirin (Ecotrin -) 81 mg PO DAILY [facility] Last Admin: 03/25/17 09:39 Dose: 81 mg Atorvastatin Calcium (Lipitor -) 20 mg PO HS [facility] Last Admin: 03/24/17 21:46 Dose: 20 mg Bacitracin (Bacitracin -) 1 applic TP DAILY [facility] Last Admin: 03/25/17 09:39 Dose: 1 applic Sodium Chloride (Normal Saline -) 1,000 mls @ 42 mls/hr IV ASDIR [facility] Last Admin: 03/23/17 21:46 Dose: Not Given Ampicillin Sodium/Sulbactam (Sodium 3 gm/ Sodium Chloride) 100 mls @ 200 mls/ hr IVPB Q8H-IV [facility] Last Admin: 03/25/17 09:39 Dose: 200 mls/hr Lisinopril (Prinivil) 10 mg PO DAILY [facility] Last Admin: 03/25/17 09:39 Dose: 10 mg Metformin HCl (Glucophage -) 500 mg PO BID@0700,1630 [facility] Last Admin: 03/25/17 06:26 Dose: Not Given Polyethylene Glycol (Miralax (For Daily Use) -) 17 gm PO DAILY [facility] Last Admin: 03/25/17 09:39 Dose: Not Given Tamsulosin HCl (Flomax -) 0.4 mg PO DAILY@0830 [facility] Last Admin: 03/25/17 09:39 Dose: 0.4 mg - Objective Vital Signs: Vital Signs Temperature 99.1 F 03/25/17 05:00 Pulse Rate 70 03/25/17 05:00 Respiratory Rate 16 03/25/17 05:00 Blood Pressure 140/74 03/25/17 05:00 O2 Sat by Pulse Oximetry (%) 94 L 03/24/17 20:43 Constitutional: Yes: No Distress, Calm Eyes: Yes: WNL HENT: Yes: WNL Neck: Yes: Supple Cardiovascular: Yes: Regular Rate and Rhythm Respiratory: Yes: Other (slight basilar diminished breath sounds) Gastrointestinal: Yes: Normal Bowel Sounds, Soft Genitourinary: Yes: WNL Extremities: Yes: Other (nod edema/cyanosis) Labs: CBC, BMP 03/24/17 06:00 03/24/17 06:00 INR, PTT INR 1.10 (0.82-1.09) 03/13/17 13:00 Problem List - Problems (1) CHF (congestive heart failure) Code(s): I50.9 - HEART FAILURE, UNSPECIFIED (2) COPD (chronic obstructive pulmonary disease) Code(s): J44.9 - CHRONIC OBSTRUCTIVE PULMONARY DISEASE, UNSPECIFIED (3) Diabetes 1.5, managed as type 2 Code(s): E10.9 - TYPE 1 DIABETES MELLITUS WITHOUT COMPLICATIONS (4) Dysphagia Code(s): R13.10 - DYSPHAGIA, UNSPECIFIED (5) Esophageal adenocarcinoma Code(s): C15.9 - MALIGNANT NEOPLASM OF ESOPHAGUS, UNSPECIFIED (6) Parkinson disease Code(s): G20 - PARKINSON'S DISEASE (7) Pneumonia Code(s): J18.9 - PNEUMONIA, UNSPECIFIED ORGANISM (8) 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
--- NOTE | 2017-03-25 12:06 | PN ---
Progress Note (short form) - Note Progress Note: PULMONARY Denies shortness of breath or chest pain. Occasional nonproductive cough without wheezing. No fevers or chills. Last Vital Signs Temp Pulse Resp BP Pulse Ox 99.1 F 70 16 140/74 94 L 03/25/17 05:00 03/25/17 05:00 03/25/17 05:00 03/25/17 05:00 03/24/17 20:43 Gen: NAD in chair Heart: RRR Lung: few basilar rales Abd: soft, nontender Ext: no edema CBC, BMP 03/24/17 06:00 03/24/17 06:00 Active Medications Amoxicillin/Clavulanate Potassium (Augmentin - 875mg Tablet) 1 tab PO BID@0800, 1730 [facility] Aspirin (Ecotrin -) 81 mg PO DAILY [facility] Last Admin: 03/25/17 09:39 Dose: 81 mg Atorvastatin Calcium (Lipitor -) 20 mg PO HS [facility] Last Admin: 03/24/17 21:46 Dose: 20 mg Bacitracin (Bacitracin -) 1 applic TP DAILY [facility] Last Admin: 03/25/17 09:39 Dose: 1 applic Sodium Chloride (Normal Saline -) 1,000 mls @ 42 mls/hr IV ASDIR [facility] Last Admin: 03/23/17 21:46 Dose: Not Given Lisinopril (Prinivil) 10 mg PO DAILY [facility] Last Admin: 03/25/17 09:39 Dose: 10 mg Metformin HCl (Glucophage -) 500 mg PO BID@0700,1630 [facility] Last Admin: 03/25/17 06:26 Dose: Not Given Polyethylene Glycol (Miralax (For Daily Use) -) 17 gm PO DAILY [facility] Last Admin: 03/25/17 09:39 Dose: Not Given Tamsulosin HCl (Flomax -) 0.4 mg PO DAILY@0830 [facility] Last Admin: 03/25/17 09:39 Dose: 0.4 mg A/P Esophageal Ca Acute CVA Atrial Fibrillation HTN DM Dysphagia improving - antibiotics per ID - ASA, statin - oncology work up in progress - DVT prophylaxis
[2017-03-25] MEDS: AMOX TR/POT CLAV 875MG/125MG TABLETS (FP) PO SCH (17:59)
[2017-03-25] MEDS: ATORVASTATIN CA 20 MG TABLET (FP) PO SCH (21:06)
[2017-03-26] MEDS: metFORMIN HCL 500 MG TABLET (FP) PO SCH ×2 (06:18→17:42)
[2017-03-26 08:32] LABS: BASOPHIL 0.5 % (0-2.0); EOSINOPHIL 9.1 % (0-4.5); MCH 29.6 pg (25.7-33.7); MCHC 33.3 g/dl (32.0-35.9); MEAN CELL VOLUME 88.8 fl (80-96); MEAN PLT VOLUME 7.6 fl (7.5-11.1); NEUTROPHILS 66.8 % (42.8-82.8); PLATELET COUNT 238 K/MM3 (134-434); RDW 14.9 % (11.9-15.9); WHITE BLOOD COUNT 7.8 K/mm3 (4.0-10.0)
[2017-03-26 08:53] LABS: ANION GAP 9 (8-16); CALCIUM 8.5 mg/dL (8.5-10.1); CO2 27 mmol/L (21-32); CREATININE 0.6 mg/dL (0.7-1.3); GLUCOSE,RANDOM 112 mg/dL (74-106)
[2017-03-26] MEDS: AMOX TR/POT CLAV 875MG/125MG TABLETS (FP) PO SCH ×2 (09:11→17:42)
[2017-03-26] MEDS: LISINOPRIL 10 MG TABLET (FP) PO SCH (09:11)
[2017-03-26] MEDS: TAMSULOSIN HCL 0.4 MG CAP.ER.24H (FP) PO SCH (09:11)
[2017-03-26] MEDS: BACITRACIN 15 GM TUBE TOPICAL OINTMENT TP SCH (09:11)
[2017-03-26] MEDS: ASPIRIN COATED 81 MG TABLET.EC PO SCH (09:11)
[2017-03-26] MEDS: POLYETHYLENE GLYCOL 3350 119 GM BTL PO SCH (09:14)
--- NOTE | 2017-03-26 10:54 | PN ---
Progress Note, Physician Chief Complaint: pt tolerating po liq vss no complaints - Current Medication List Current Medications: Active Medications Amoxicillin/Clavulanate Potassium (Augmentin - 875mg Tablet) 1 tab PO BID@0800, 1730 [facility] Last Admin: 03/26/17 09:11 Dose: 1 tab Aspirin (Ecotrin -) 81 mg PO DAILY [facility] Last Admin: 03/26/17 09:11 Dose: 81 mg Atorvastatin Calcium (Lipitor -) 20 mg PO HS [facility] Last Admin: 03/25/17 21:06 Dose: 20 mg Bacitracin (Bacitracin -) 1 applic TP DAILY [facility] Last Admin: 03/26/17 09:11 Dose: 1 applic Sodium Chloride (Normal Saline -) 1,000 mls @ 42 mls/hr IV ASDIR [facility] Last Admin: 03/23/17 21:46 Dose: Not Given Lisinopril (Prinivil) 10 mg PO DAILY [facility] Last Admin: 03/26/17 09:11 Dose: 10 mg Metformin HCl (Glucophage -) 500 mg PO BID@0700,1630 [facility] Last Admin: 03/26/17 06:18 Dose: Not Given Polyethylene Glycol (Miralax (For Daily Use) -) 17 gm PO DAILY [facility] Last Admin: 03/26/17 09:14 Dose: Not Given Tamsulosin HCl (Flomax -) 0.4 mg PO DAILY@0830 [facility] Last Admin: 03/26/17 09:11 Dose: 0.4 mg - Objective Vital Signs: Vital Signs Temperature 98.6 F 03/26/17 05:00 Pulse Rate 70 03/26/17 05:00 Respiratory Rate 20 03/26/17 05:00 Blood Pressure 138/75 03/26/17 05:00 O2 Sat by Pulse Oximetry (%) 97 03/25/17 22:00 Labs: CBC, BMP 03/26/17 05:40 03/26/17 05:40 INR, PTT INR 1.10 (0.82-1.09) 03/13/17 13:00 Problem List - Problems (1) CHF (congestive heart failure) Code(s): I50.9 - HEART FAILURE, UNSPECIFIED (2) HTN (hypertension) Code(s): I10 - ESSENTIAL (PRIMARY) HYPERTENSION (3) BPH (benign prostatic hyperplasia) Code(s): N40.0 - BENIGN PROSTATIC HYPERPLASIA WITHOUT LOWER URINRY TRACT SYMP (4) Afib Code(s): I48.91 - UNSPECIFIED ATRIAL FIBRILLATION (5) Diabetes 1.5, managed as type 2 Code(s): E10.9 - TYPE 1 DIABETES MELLITUS WITHOUT COMPLICATIONS (6) COPD (chronic obstructive pulmonary disease) Code(s): J44.9 - CHRONIC OBSTRUCTIVE PULMONARY DISEASE, UNSPECIFIED (7) Parkinson disease Code(s): G20 - PARKINSON'S DISEASE Assessment/Plan dx localizeds oesiphogel ca poor diff adeno afibb ppm chf ??? cva lt temp lobe h/o a/v block dm ? park gait bph copd plan need to know tx onco out pt vs nh tx or nh to get better fist x 2 wks than out pt tx ? josue p/t evalwatcth basp hck cxr
--- NOTE | 2017-03-26 12:28 | PN ---
Progress Note (short form) - Note Progress Note: PULMONARY Denies shortness of breath or chest pain. No fevers or chills. Reports poor appetite. Last Vital Signs Temp Pulse Resp BP Pulse Ox 98.6 F 70 20 138/75 97 03/26/17 05:00 03/26/17 05:00 03/26/17 05:00 03/26/17 05:00 03/25/17 22:00 Gen: NAD in chair Heart: RRR Lung: few basilar rales Abd: soft, nontender Ext: no edema CBC, BMP 03/26/17 05:40 03/26/17 05:40 Active Medications Amoxicillin/Clavulanate Potassium (Augmentin - 875mg Tablet) 1 tab PO BID@0800, 1730 [facility] Last Admin: 03/26/17 09:11 Dose: 1 tab Aspirin (Ecotrin -) 81 mg PO DAILY [facility] Last Admin: 03/26/17 09:11 Dose: 81 mg Atorvastatin Calcium (Lipitor -) 20 mg PO HS [facility] Last Admin: 03/25/17 21:06 Dose: 20 mg Bacitracin (Bacitracin -) 1 applic TP DAILY [facility] Last Admin: 03/26/17 09:11 Dose: 1 applic Sodium Chloride (Normal Saline -) 1,000 mls @ 42 mls/hr IV ASDIR [facility] Last Admin: 03/23/17 21:46 Dose: Not Given Lisinopril (Prinivil) 10 mg PO DAILY [facility] Last Admin: 03/26/17 09:11 Dose: 10 mg Metformin HCl (Glucophage -) 500 mg PO BID@0700,1630 [facility] Last Admin: 03/26/17 06:18 Dose: Not Given Polyethylene Glycol (Miralax (For Daily Use) -) 17 gm PO DAILY [facility] Last Admin: 03/26/17 09:14 Dose: Not Given Tamsulosin HCl (Flomax -) 0.4 mg PO DAILY@0830 [facility] Last Admin: 03/26/17 09:11 Dose: 0.4 mg A/P Esophageal Ca Acute CVA Atrial Fibrillation HTN DM Dysphagia improving - complete antibiotics per ID - ASA, statin - oncology work up in progress - DVT prophylaxis
--- NOTE | 2017-03-26 15:07 | PN ---
Progress Note, Physician History of Present Illness: Pt is comfortable. Denies shortness of breath, no current cough. Denies fever/ chills. Tolerating antibiotics. - Current Medication List Current Medications: Active Medications Amoxicillin/Clavulanate Potassium (Augmentin - 875mg Tablet) 1 tab PO BID@0800, 1730 [facility] Last Admin: 03/26/17 09:11 Dose: 1 tab Aspirin (Ecotrin -) 81 mg PO DAILY [facility] Last Admin: 03/26/17 09:11 Dose: 81 mg Atorvastatin Calcium (Lipitor -) 20 mg PO HS [facility] Last Admin: 03/25/17 21:06 Dose: 20 mg Bacitracin (Bacitracin -) 1 applic TP DAILY [facility] Last Admin: 03/26/17 09:11 Dose: 1 applic Sodium Chloride (Normal Saline -) 1,000 mls @ 42 mls/hr IV ASDIR [facility] Last Admin: 03/23/17 21:46 Dose: Not Given Lisinopril (Prinivil) 10 mg PO DAILY [facility] Last Admin: 03/26/17 09:11 Dose: 10 mg Metformin HCl (Glucophage -) 500 mg PO BID@0700,1630 [facility] Last Admin: 03/26/17 06:18 Dose: Not Given Polyethylene Glycol (Miralax (For Daily Use) -) 17 gm PO DAILY [facility] Last Admin: 03/26/17 09:14 Dose: Not Given Tamsulosin HCl (Flomax -) 0.4 mg PO DAILY@0830 [facility] Last Admin: 03/26/17 09:11 Dose: 0.4 mg - Objective Vital Signs: Vital Signs Temperature 99.1 F 03/26/17 14:00 Pulse Rate 70 03/26/17 14:00 Respiratory Rate 20 03/26/17 14:00 Blood Pressure 139/78 03/26/17 14:00 O2 Sat by Pulse Oximetry (%) 96 03/26/17 10:00 Constitutional: Yes: No Distress, Calm, Other HENT: Yes: WNL Cardiovascular: Yes: Regular Rate and Rhythm Respiratory: Yes: Other (mild basilar rales) Gastrointestinal: Yes: Normal Bowel Sounds, Soft Musculoskeletal: Yes: WNL Extremities: Yes: WNL Integumentary: Yes: WNL Neurological: Yes: Alert, Oriented Psychiatric: Yes: Alert, Oriented Labs: CBC, BMP 03/26/17 05:40 03/26/17 05:40 INR, PTT INR 1.10 (0.82-1.09) 03/13/17 13:00 Problem List - Problems (1) CHF (congestive heart failure) Code(s): I50.9 - HEART FAILURE, UNSPECIFIED (2) COPD (chronic obstructive pulmonary disease) Code(s): J44.9 - CHRONIC OBSTRUCTIVE PULMONARY DISEASE, UNSPECIFIED (3) Diabetes 1.5, managed as type 2 Code(s): E10.9 - TYPE 1 DIABETES MELLITUS WITHOUT COMPLICATIONS (4) Dysphagia Code(s): R13.10 - DYSPHAGIA, UNSPECIFIED (5) Esophageal adenocarcinoma Code(s): C15.9 - MALIGNANT NEOPLASM OF ESOPHAGUS, UNSPECIFIED (6) Parkinson disease Code(s): G20 - PARKINSON'S DISEASE (7) Pneumonia Code(s): J18.9 - PNEUMONIA, UNSPECIFIED ORGANISM (8) 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
[2017-03-26] MEDS: ATORVASTATIN CA 20 MG TABLET (FP) PO SCH (22:24)
[2017-03-27] MEDS: metFORMIN HCL 500 MG TABLET (FP) PO SCH ×2 (06:45→16:04)
[2017-03-27 08:09] LABS: BASOPHIL 0.6 % (0-2.0); EOSINOPHIL 8.4 % (0-4.5); MCH 29.6 pg (25.7-33.7); MCHC 33.3 g/dl (32.0-35.9); MEAN CELL VOLUME 88.7 fl (80-96); MEAN PLT VOLUME 7.7 fl (7.5-11.1); NEUTROPHILS 66.7 % (42.8-82.8); PLATELET COUNT 233 K/MM3 (134-434); WHITE BLOOD COUNT 8.5 K/mm3 (4.0-10.0)
[2017-03-27 08:41] LABS: ANION GAP 8 (8-16); CALCIUM 8.3 mg/dL (8.5-10.1); CO2 29 mmol/L (21-32); CREATININE 0.7 mg/dL (0.7-1.3); GLUCOSE,RANDOM 114 mg/dL (74-106)
--- NOTE | 2017-03-27 09:16 | PN ---
Progress Note, Physician - Current Medication List Current Medications: Active Medications Amoxicillin/Clavulanate Potassium (Augmentin - 875mg Tablet) 1 tab PO BID@0800, 1730 [facility] Last Admin: 03/26/17 17:42 Dose: 1 tab Aspirin (Ecotrin -) 81 mg PO DAILY [facility] Last Admin: 03/26/17 09:11 Dose: 81 mg Atorvastatin Calcium (Lipitor -) 20 mg PO HS [facility] Last Admin: 03/26/17 22:24 Dose: 20 mg Bacitracin (Bacitracin -) 1 applic TP DAILY [facility] Last Admin: 03/26/17 09:11 Dose: 1 applic Sodium Chloride (Normal Saline -) 1,000 mls @ 42 mls/hr IV ASDIR [facility] Last Admin: 03/23/17 21:46 Dose: Not Given Lisinopril (Prinivil) 10 mg PO DAILY [facility] Last Admin: 03/26/17 09:11 Dose: 10 mg Metformin HCl (Glucophage -) 500 mg PO BID@0700,1630 [facility] Last Admin: 03/27/17 06:45 Dose: 500 mg Polyethylene Glycol (Miralax (For Daily Use) -) 17 gm PO DAILY [facility] Last Admin: 03/26/17 09:14 Dose: Not Given Tamsulosin HCl (Flomax -) 0.4 mg PO DAILY@0830 [facility] Last Admin: 03/26/17 09:11 Dose: 0.4 mg - Objective Vital Signs: Vital Signs Temperature 97.8 F 03/27/17 06:00 Pulse Rate 74 03/27/17 06:00 Respiratory Rate 20 03/27/17 06:00 Blood Pressure 121/85 03/27/17 06:00 O2 Sat by Pulse Oximetry (%) 94 L 03/26/17 22:00 Labs: CBC, BMP 03/27/17 07:00 03/27/17 07:00 INR, PTT INR 1.10 (0.82-1.09) 03/13/17 13:00 Problem List - Problems (1) CHF (congestive heart failure) Code(s): I50.9 - HEART FAILURE, UNSPECIFIED (2) HTN (hypertension) Code(s): I10 - ESSENTIAL (PRIMARY) HYPERTENSION (3) BPH (benign prostatic hyperplasia) Code(s): N40.0 - BENIGN PROSTATIC HYPERPLASIA WITHOUT LOWER URINRY TRACT SYMP (4) Afib Code(s): I48.91 - UNSPECIFIED ATRIAL FIBRILLATION (5) Diabetes 1.5, managed as type 2 Code(s): E10.9 - TYPE 1 DIABETES MELLITUS WITHOUT COMPLICATIONS (6) COPD (chronic obstructive pulmonary disease) Code(s): J44.9 - CHRONIC OBSTRUCTIVE PULMONARY DISEASE, UNSPECIFIED (7) Parkinson disease Code(s): G20 - PARKINSON'S DISEASE Assessment/Plan pt tolerating po liq ensure onco tx nh or outpt or pheilps or nh x 2 wks to strenghthen up prior to tx
--- NOTE | 2017-03-27 09:36 | PN ---
Progress Note, Physician History of Present Illness: pulmonary alert,nad,-sob,-cp,min cough - Current Medication List Current Medications: Active Medications Amoxicillin/Clavulanate Potassium (Augmentin - 875mg Tablet) 1 tab PO BID@0800, 1730 [facility] Last Admin: 03/26/17 17:42 Dose: 1 tab Aspirin (Ecotrin -) 81 mg PO DAILY [facility] Last Admin: 03/26/17 09:11 Dose: 81 mg Atorvastatin Calcium (Lipitor -) 20 mg PO HS [facility] Last Admin: 03/26/17 22:24 Dose: 20 mg Bacitracin (Bacitracin -) 1 applic TP DAILY [facility] Last Admin: 03/26/17 09:11 Dose: 1 applic Sodium Chloride (Normal Saline -) 1,000 mls @ 42 mls/hr IV ASDIR [facility] Last Admin: 03/23/17 21:46 Dose: Not Given Lisinopril (Prinivil) 10 mg PO DAILY [facility] Last Admin: 03/26/17 09:11 Dose: 10 mg Metformin HCl (Glucophage -) 500 mg PO BID@0700,1630 [facility] Last Admin: 03/27/17 06:45 Dose: 500 mg Polyethylene Glycol (Miralax (For Daily Use) -) 17 gm PO DAILY [facility] Last Admin: 03/26/17 09:14 Dose: Not Given Tamsulosin HCl (Flomax -) 0.4 mg PO DAILY@0830 [facility] Last Admin: 03/26/17 09:11 Dose: 0.4 mg - Objective Vital Signs: Vital Signs Temperature 97.8 F 03/27/17 06:00 Pulse Rate 74 03/27/17 06:00 Respiratory Rate 20 03/27/17 06:00 Blood Pressure 121/85 03/27/17 06:00 O2 Sat by Pulse Oximetry (%) 94 L 03/26/17 22:00 Constitutional: Yes: Well Nourished, Calm Eyes: Yes: WNL HENT: Yes: WNL Neck: Yes: WNL Cardiovascular: Yes: Pulse Irregular, S1, S2 Respiratory: Yes: Rales (few basilar crackles) Gastrointestinal: Yes: Normal Bowel Sounds, Soft Extremities: Yes: WNL Edema: Yes Labs: CBC, BMP 03/27/17 07:00 03/27/17 07:00 INR, PTT INR 1.10 (0.82-1.09) 03/13/17 13:00 Problem List - Problems (1) Afib Code(s): I48.91 - UNSPECIFIED ATRIAL FIBRILLATION (2) COPD (chronic obstructive pulmonary disease) Code(s): J44.9 - CHRONIC OBSTRUCTIVE PULMONARY DISEASE, UNSPECIFIED (3) Dysphagia Code(s): R13.10 - DYSPHAGIA, UNSPECIFIED (4) HTN (hypertension) Code(s): I10 - ESSENTIAL (PRIMARY) HYPERTENSION (5) Parkinson disease Code(s): G20 - PARKINSON'S DISEASE (6) 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
[2017-03-27] MEDS: AMOX TR/POT CLAV 875MG/125MG TABLETS (FP) PO SCH ×2 (09:49→17:04)
[2017-03-27] MEDS: ASPIRIN COATED 81 MG TABLET.EC PO SCH (09:49)
[2017-03-27] MEDS: TAMSULOSIN HCL 0.4 MG CAP.ER.24H (FP) PO SCH (09:49)
[2017-03-27] MEDS: BACITRACIN 15 GM TUBE TOPICAL OINTMENT TP SCH (09:49)
[2017-03-27] MEDS: POLYETHYLENE GLYCOL 3350 119 GM BTL PO SCH (09:49)
[2017-03-27] MEDS: LISINOPRIL 10 MG TABLET (FP) PO SCH (09:49)
--- NOTE | 2017-03-27 16:34 | PN ---
Progress Note, Physician History of Present Illness: doing well no complaints - Current Medication List Current Medications: Active Medications Amoxicillin/Clavulanate Potassium (Augmentin - 875mg Tablet) 1 tab PO BID@0800, 1730 [facility] Last Admin: 03/27/17 09:49 Dose: 1 tab Aspirin (Ecotrin -) 81 mg PO DAILY [facility] Last Admin: 03/27/17 09:49 Dose: 81 mg Atorvastatin Calcium (Lipitor -) 20 mg PO HS [facility] Last Admin: 03/26/17 22:24 Dose: 20 mg Bacitracin (Bacitracin -) 1 applic TP DAILY [facility] Last Admin: 03/27/17 09:49 Dose: 1 applic Sodium Chloride (Normal Saline -) 1,000 mls @ 42 mls/hr IV ASDIR [facility] Last Admin: 03/23/17 21:46 Dose: Not Given Lisinopril (Prinivil) 10 mg PO DAILY [facility] Last Admin: 03/27/17 09:49 Dose: 10 mg Metformin HCl (Glucophage -) 500 mg PO BID@0700,1630 [facility] Last Admin: 03/27/17 06:45 Dose: 500 mg Polyethylene Glycol (Miralax (For Daily Use) -) 17 gm PO DAILY [facility] Last Admin: 03/27/17 09:49 Dose: Not Given Tamsulosin HCl (Flomax -) 0.4 mg PO DAILY@0830 [facility] Last Admin: 03/27/17 09:49 Dose: 0.4 mg - Objective Vital Signs: Vital Signs Temperature 98.5 F 03/27/17 14:00 Pulse Rate 69 03/27/17 14:00 Respiratory Rate 20 03/27/17 14:00 Blood Pressure 125/75 03/27/17 14:00 O2 Sat by Pulse Oximetry (%) 95 03/27/17 10:00 Constitutional: Yes: No Distress, Calm Cardiovascular: Yes: S1, S2 Respiratory: Yes: Regular, CTA Bilaterally Gastrointestinal: Yes: Normal Bowel Sounds, Soft Musculoskeletal: Yes: WNL Extremities: Yes: WNL Neurological: Yes: Alert, Oriented Psychiatric: Yes: Alert Labs: CBC, BMP 03/27/17 07:00 03/27/17 07:00 INR, PTT INR 1.10 (0.82-1.09) 03/13/17 13:00 Assessment/Plan Problem List - Problems (1) CHF (congestive heart failure) Code(s): I50.9 - HEART FAILURE, UNSPECIFIED (2) HTN (hypertension) Code(s): I10 - ESSENTIAL (PRIMARY) HYPERTENSION (3) BPH (benign prostatic hyperplasia) Code(s): N40.0 - BENIGN PROSTATIC HYPERPLASIA WITHOUT LOWER URINRY TRACT SYMP (4) Afib Code(s): I48.91 - UNSPECIFIED ATRIAL FIBRILLATION (5) Diabetes 1.5, managed as type 2 Code(s): E10.9 - TYPE 1 DIABETES MELLITUS WITHOUT COMPLICATIONS (6) COPD (chronic obstructive pulmonary disease) Code(s): J44.9 - CHRONIC OBSTRUCTIVE PULMONARY DISEASE, UNSPECIFIED (7) Parkinson disease Code(s): G20 - PARKINSON'S DISEASE pneumonia--left lower infiltrate plan continue current mgmt continue augmentin final plan awaited
[2017-03-27] MEDS: ATORVASTATIN CA 20 MG TABLET (FP) PO SCH (21:37)
[2017-03-28] MEDS: metFORMIN HCL 500 MG TABLET (FP) PO SCH ×2 (06:21→18:40)
[2017-03-28] MEDS: TAMSULOSIN HCL 0.4 MG CAP.ER.24H (FP) PO SCH (08:24)
[2017-03-28] MEDS: AMOX TR/POT CLAV 875MG/125MG TABLETS (FP) PO SCH ×2 (08:24→18:40)
[2017-03-28] MEDS: LISINOPRIL 10 MG TABLET (FP) PO SCH (09:26)
[2017-03-28] MEDS: ASPIRIN COATED 81 MG TABLET.EC PO SCH (09:26)
[2017-03-28] MEDS: BACITRACIN 15 GM TUBE TOPICAL OINTMENT TP SCH (09:29)
--- NOTE | 2017-03-28 10:23 | PN ---
Progress Note, Physician - Current Medication List Current Medications: Active Medications Amoxicillin/Clavulanate Potassium (Augmentin - 875mg Tablet) 1 tab PO BID@0800, 1730 [facility] Last Admin: 03/28/17 08:24 Dose: 1 tab Aspirin (Ecotrin -) 81 mg PO DAILY [facility] Last Admin: 03/28/17 09:26 Dose: 81 mg Atorvastatin Calcium (Lipitor -) 20 mg PO HS [facility] Last Admin: 03/27/17 21:37 Dose: 20 mg Bacitracin (Bacitracin -) 1 applic TP DAILY [facility] Last Admin: 03/28/17 09:29 Dose: 1 applic Sodium Chloride (Normal Saline -) 1,000 mls @ 42 mls/hr IV ASDIR [facility] Last Admin: 03/23/17 21:46 Dose: Not Given Lisinopril (Prinivil) 10 mg PO DAILY [facility] Last Admin: 03/28/17 09:26 Dose: 10 mg Metformin HCl (Glucophage -) 500 mg PO BID@0700,1630 [facility] Last Admin: 03/28/17 06:21 Dose: 500 mg Polyethylene Glycol (Miralax (For Daily Use) -) 17 gm PO DAILY [facility] Last Admin: 03/27/17 09:49 Dose: Not Given Tamsulosin HCl (Flomax -) 0.4 mg PO DAILY@0830 [facility] Last Admin: 03/28/17 08:24 Dose: 0.4 mg - Objective Vital Signs: Vital Signs Temperature 98.2 F 03/28/17 05:39 Pulse Rate 74 03/28/17 05:39 Respiratory Rate 18 03/28/17 05:39 Blood Pressure 128/80 03/28/17 05:39 O2 Sat by Pulse Oximetry (%) 97 03/28/17 09:00 Labs: CBC, BMP 03/27/17 07:00 03/27/17 07:00 INR, PTT INR 1.10 (0.82-1.09) 03/13/17 13:00 Problem List - Problems (1) CHF (congestive heart failure) Code(s): I50.9 - HEART FAILURE, UNSPECIFIED (2) HTN (hypertension) Code(s): I10 - ESSENTIAL (PRIMARY) HYPERTENSION (3) BPH (benign prostatic hyperplasia) Code(s): N40.0 - BENIGN PROSTATIC HYPERPLASIA WITHOUT LOWER URINRY TRACT SYMP (4) Afib Code(s): I48.91 - UNSPECIFIED ATRIAL FIBRILLATION (5) Diabetes 1.5, managed as type 2 Code(s): E10.9 - TYPE 1 DIABETES MELLITUS WITHOUT COMPLICATIONS (6) COPD (chronic obstructive pulmonary disease) Code(s): J44.9 - CHRONIC OBSTRUCTIVE PULMONARY DISEASE, UNSPECIFIED (7) Parkinson disease Code(s): G20 - PARKINSON'S DISEASE Assessment/Plan TOLERATING REG DIET WELL VSS NOCOMPLAINTS ONCO TO DESETION TO [place] OR NH 2 WKS PRIOR TO TX
--- NOTE | 2017-03-28 10:37 | PN ---
Progress Note, Physician History of Present Illness: pulmonary alert,nad,-cp,-sob - Current Medication List Current Medications: Active Medications Amoxicillin/Clavulanate Potassium (Augmentin - 875mg Tablet) 1 tab PO BID@0800, 1730 [facility] Last Admin: 03/28/17 08:24 Dose: 1 tab Aspirin (Ecotrin -) 81 mg PO DAILY [facility] Last Admin: 03/28/17 09:26 Dose: 81 mg Atorvastatin Calcium (Lipitor -) 20 mg PO HS [facility] Last Admin: 03/27/17 21:37 Dose: 20 mg Bacitracin (Bacitracin -) 1 applic TP DAILY [facility] Last Admin: 03/28/17 09:29 Dose: 1 applic Sodium Chloride (Normal Saline -) 1,000 mls @ 42 mls/hr IV ASDIR [facility] Last Admin: 03/23/17 21:46 Dose: Not Given Lisinopril (Prinivil) 10 mg PO DAILY [facility] Last Admin: 03/28/17 09:26 Dose: 10 mg Metformin HCl (Glucophage -) 500 mg PO BID@0700,1630 [facility] Last Admin: 03/28/17 06:21 Dose: 500 mg Polyethylene Glycol (Miralax (For Daily Use) -) 17 gm PO DAILY [facility] Last Admin: 03/27/17 09:49 Dose: Not Given Tamsulosin HCl (Flomax -) 0.4 mg PO DAILY@0830 [facility] Last Admin: 03/28/17 08:24 Dose: 0.4 mg - Objective Vital Signs: Vital Signs Temperature 98.2 F 03/28/17 05:39 Pulse Rate 74 03/28/17 05:39 Respiratory Rate 18 03/28/17 05:39 Blood Pressure 128/80 03/28/17 05:39 O2 Sat by Pulse Oximetry (%) 97 03/28/17 09:00 Constitutional: Yes: Well Nourished, Calm Eyes: Yes: WNL HENT: Yes: WNL Neck: Yes: WNL Cardiovascular: Yes: Pulse Irregular, S1, S2 Respiratory: Yes: Rales (few bibasilar crackles) Gastrointestinal: Yes: Normal Bowel Sounds, Soft Extremities: Yes: WNL Edema: No Labs: CBC, BMP 03/27/17 07:00 Problem List - Problems (1) Afib Code(s): I48.91 - UNSPECIFIED ATRIAL FIBRILLATION (2) COPD (chronic obstructive pulmonary disease) Code(s): J44.9 - CHRONIC OBSTRUCTIVE PULMONARY DISEASE, UNSPECIFIED (3) Dysphagia Code(s): R13.10 - DYSPHAGIA, UNSPECIFIED (4) HTN (hypertension) Code(s): I10 - ESSENTIAL (PRIMARY) HYPERTENSION (5) Parkinson disease Code(s): G20 - PARKINSON'S DISEASE (6) 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
--- NOTE | 2017-03-28 10:47 | PN ---
Progress Note, [employer] - Note Progress Note: Pt advanced to regular diet. Selected Entries 03/26/17 03/26/17 03/26/17 01:00 05:00 10:00 Breakfast 50% Lunch Supper Temperature 98.6 F 98.6 F 98.4 F 03/26/17 03/26/17 03/26/17 14:00 18:00 19:52 Breakfast 75% Lunch 75% Supper 75% Temperature 99.1 F 98.9 F 03/26/17 03/27/17 03/27/17 22:00 02:00 06:00 Breakfast Lunch Supper Temperature 97.8 F 98.6 F 97.8 F 03/27/17 03/27/17 03/27/17 10:00 14:00 18:00 Breakfast Lunch Supper 75% Temperature 98.6 F 98.5 F 98.1 F 03/27/17 03/28/17 03/28/17 22:00 02:00 05:39 Breakfast Lunch Supper Temperature 97.8 F 98.7 F 98.2 F 03/28/17 03/28/17 10:00 10:20 Breakfast 50% Lunch Supper Temperature 98.4 F If aspiration is suspected, consider NPO. Clinically, he appears to be tolerating clear liquids, needs more nourishment, needs to be upright to reduce risk of retrograde aspiration if esophageal emptying is delayed. If plan is RT/ GT suggest continuing some PO trials to maintain swallowing function if possible , and tolerated.
[2017-03-28] MEDS: POLYETHYLENE GLYCOL 3350 119 GM BTL PO SCH (12:49)
--- NOTE | 2017-03-28 15:14 | PN ---
Progress Note, Physician History of Present Illness: doing well no complaints - Current Medication List Current Medications: Active Medications Amoxicillin/Clavulanate Potassium (Augmentin - 875mg Tablet) 1 tab PO BID@0800, 1730 [facility] Last Admin: 03/28/17 08:24 Dose: 1 tab Aspirin (Ecotrin -) 81 mg PO DAILY [facility] Last Admin: 03/28/17 09:26 Dose: 81 mg Atorvastatin Calcium (Lipitor -) 20 mg PO HS [facility] Last Admin: 03/27/17 21:37 Dose: 20 mg Bacitracin (Bacitracin -) 1 applic TP DAILY [facility] Last Admin: 03/28/17 09:29 Dose: 1 applic Lisinopril (Prinivil) 10 mg PO DAILY [facility] Last Admin: 03/28/17 09:26 Dose: 10 mg Metformin HCl (Glucophage -) 500 mg PO BID@0700,1630 [facility] Last Admin: 03/28/17 06:21 Dose: 500 mg Polyethylene Glycol (Miralax (For Daily Use) -) 17 gm PO DAILY [facility] Last Admin: 03/28/17 12:49 Dose: Not Given Tamsulosin HCl (Flomax -) 0.4 mg PO DAILY@0830 [facility] Last Admin: 03/28/17 08:24 Dose: 0.4 mg - Objective Vital Signs: Vital Signs Temperature 98.4 F 03/28/17 10:00 Pulse Rate 71 03/28/17 10:00 Respiratory Rate 18 03/28/17 10:00 Blood Pressure 145/57 03/28/17 10:00 O2 Sat by Pulse Oximetry (%) 97 03/28/17 09:00 Constitutional: Yes: No Distress, Calm Neck: Yes: Supple Cardiovascular: Yes: Regular Rate and Rhythm Respiratory: Yes: Regular, CTA Bilaterally Gastrointestinal: Yes: Normal Bowel Sounds, Soft Musculoskeletal: Yes: WNL Extremities: Yes: WNL Neurological: Yes: Alert, Oriented Psychiatric: Yes: Alert Labs: CBC, BMP 03/27/17 07:00 03/27/17 07:00 INR, PTT INR 1.10 (0.82-1.09) 03/13/17 13:00 Assessment/Plan Problem List - Problems (1) CHF (congestive heart failure) Code(s): I50.9 - HEART FAILURE, UNSPECIFIED (2) HTN (hypertension) Code(s): I10 - ESSENTIAL (PRIMARY) HYPERTENSION (3) BPH (benign prostatic hyperplasia) Code(s): N40.0 - BENIGN PROSTATIC HYPERPLASIA WITHOUT LOWER URINRY TRACT SYMP (4) Afib Code(s): I48.91 - UNSPECIFIED ATRIAL FIBRILLATION (5) Diabetes 1.5, managed as type 2 Code(s): E10.9 - TYPE 1 DIABETES MELLITUS WITHOUT COMPLICATIONS (6) COPD (chronic obstructive pulmonary disease) Code(s): J44.9 - CHRONIC OBSTRUCTIVE PULMONARY DISEASE, UNSPECIFIED (7) Parkinson disease Code(s): G20 - PARKINSON'S DISEASE pneumonia--left lower infiltrate plan continue current mgmt continue augmentin final plan awaited probably will stop oral from tomorrow
[2017-03-28] MEDS ORDERED: PT OWN MED DRAWER 7, Y5N ONE (18:39)
--- NOTE | 2017-03-28 19:08 | PN ---
Progress Note (short form) - Note Progress Note: Oncology Progress Note patient seen and examined. Lungs - decreased breased sounds, rhonchi Cor- paced rhythm Abdomen- soft Ext- LE edema Last Vital Signs Temp Pulse Resp BP Pulse Ox 98.3 F 70 18 125/70 97 03/28/17 15:27 03/28/17 15:27 03/28/17 10:00 03/28/17 15:27 03/28/17 09:00 Current Medications Generic Name Dose Route Start Last Admin Trade Name Shanelle PRN Reason Stop Dose Admin Amoxicillin/Clavulanate Potassium 1 tab 03/25/17 17:30 03/28/17 18:40 Augmentin - 875mg Tablet PO 1 tab BID@0800,1730 [facility] Administration Aspirin 81 mg 03/14/17 10:00 03/28/17 09:26 Ecotrin - PO 81 mg DAILY [facility] Administration Atorvastatin Calcium 20 mg 03/15/17 22:00 03/27/17 21:37 Lipitor - PO 20 mg HS [facility] Administration Bacitracin 1 applic 03/19/17 16:15 03/28/17 09:29 Bacitracin - TP 1 applic DAILY [facility] Administration Lisinopril 10 mg 03/14/17 10:00 03/28/17 09:26 Prinivil PO 10 mg DAILY [facility] Administration Metformin HCl 500 mg 03/14/17 07:00 03/28/17 18:40 Glucophage - PO 500 mg BID@0700,1630 [facility] Administration Polyethylene Glycol 17 gm 03/17/17 19:00 03/28/17 12:49 Miralax (For Daily Use) - PO Not Given DAILY [facility] Tamsulosin HCl 0.4 mg 03/18/17 18:30 03/28/17 08:24 Flomax - PO 0.4 mg DAILY@0830 [facility] Administration CBC, BMP 03/27/17 07:00 03/27/17 07:00 A/P: Locally advanced esophageal adenoca. CVA. -TTE reviewed -will likely need RT +/- chemotherapy, to be discussed in our tumor conference. -pt can be discharged and treatment to be given as an OP. Social situation needs to be assessed. If pt goes to [place] for more than 2weeks, would need to find out of they could transfer the pt for RT treatments and chemo therapy. SWer for the case will be spoken to tomorrow, spoke to a different SWer today who will also pass the message. -will need Port can be done as an Out pt if chemo planned. -nutritional support
[2017-03-28] MEDS: ATORVASTATIN CA 20 MG TABLET (FP) PO SCH (21:51)
[2017-03-29] MEDS: metFORMIN HCL 500 MG TABLET (FP) PO SCH (06:13)
--- NOTE | 2017-03-29 08:33 | PN ---
Progress Note (short form) - Note Progress Note: Radiation Oncology Pt seems to be tolerating some po. Calorie count in progress by nutrition. CT and bone scans reviewed. There is mediastinal and gastrohepatic yamil involvement but nothing more distant pending a PET-CT evaluation. If no additional sites of involvement, would offer regional RT field for at least palliation. This can be done as outpatient. Would optimize nutrition. Due to the extensive field required, significant tx related esophagitis would be expected to limit po intake and nutrition. Would consider prophylactic feeding tube for nutritional support before commencing therapy, especially if concurrent chemotherapy is considered. Pt seems agreeable to RT but unclear of his insight. Will d/w sister. Discussed w med oncology.
--- NOTE | 2017-03-29 08:42 | DS ---
Physical Examination Vital Signs: Vital Signs Temperature 98.6 F 03/29/17 06:00 Pulse Rate 64 03/29/17 06:00 Respiratory Rate 20 03/29/17 06:00 Blood Pressure 113/60 03/29/17 06:00 O2 Sat by Pulse Oximetry (%) 98 03/28/17 22:00 Constitutional: Yes: No Distress Eyes: Yes: WNL HENT: Yes: WNL Neck: Yes: WNL Cardiovascular: Yes: Other (pacemaker) Respiratory: Yes: WNL Gastrointestinal: Yes: WNL ...Rectal Exam: Yes: Guaiac Negative Renal/: Yes: WNL Breast(s): Yes: WNL Musculoskeletal: Yes: WNL Extremities: Yes: WNL Edema: No Peripheral Pulses WNL: Yes Integumentary: Yes: WNL (more coherant axo x3) ...Motor Strength: LLE Psychiatric: Yes: Oriented Labs: CBC, BMP 03/27/17 07:00 03/27/17 07:00 Discharge Summary Reason For Visit: TRANSIENT CEREBRAL ISCHEMIA Current Active Problems Afib (Acute) BPH (benign prostatic hyperplasia) (Acute) CHF (congestive heart failure) (Acute) COPD (chronic obstructive pulmonary disease) (Acute) Diabetes 1.5, managed as type 2 (Acute) Dysphagia (Acute) Esophageal adenocarcinoma (Acute) HTN (hypertension) (Acute) Parkinson disease (Acute) Pneumonia (Acute) 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 (Acute) TIA (transient ischemic attack) (Acute) Condition: Stable - Instructions Diet, Activity, Other Instructions: eat chopped reg diet food in sitting position after x 2wks will do out pt onco tx Referrals: Moose Moss MD [Primary Care Provider] - Disposition: HALFWAY FACILITY - Home Medications Comprehensive Discharge Medication List: Ambulatory Orders Lisinopril [Prinivil] 10 mg PO DAILY 03/13/17 Metformin HCl [Metformin HCl ER] 500 mg PO DAILY 03/13/17 Tamsulosin HCl [Flomax -] 0.4 mg PO DAILY 03/13/17 Tiotropium [place] [Spiriva] 1 puff IH DAILY 03/13/17 Atorvastatin Ca [Lipitor] 20 mg PO HS tablet 03/29/17 Metformin HCl [Glucophage -] 500 mg PO BID@0700,1630 tablet 03/29/17 Polyethylene Glycol 3350 [Miralax 119 gm Btl -] 17 gm PO DAILY bottle 03/29/17
[2017-03-29 10:43] VITALS: BP 110/60; PULSE 70; TEMP 98.2
[2017-03-29] MEDS: BACITRACIN 15 GM TUBE TOPICAL OINTMENT TP SCH (10:47)
[2017-03-29] MEDS: LISINOPRIL 10 MG TABLET (FP) PO SCH (10:47)
[2017-03-29] MEDS: AMOX TR/POT CLAV 875MG/125MG TABLETS (FP) PO SCH (10:47)
[2017-03-29] MEDS: ASPIRIN COATED 81 MG TABLET.EC PO SCH (10:47)
[2017-03-29] MEDS: TAMSULOSIN HCL 0.4 MG CAP.ER.24H (FP) PO SCH (10:47)
[2017-03-29] MEDS: POLYETHYLENE GLYCOL 3350 119 GM BTL PO SCH (10:48)
== END 2017-03-29 11:55 | DRG 64 ==
LOC: JER 12:07 → JERBED 14:25 → J4W 20:52
PROVIDERS: ADMIT Family Medicine; ATTEND Family Medicine
PROC: 0DB18ZX Excision of Upper Esophagus, Via Natural or Artificial Opening Endoscopic, Diagnostic (ICD-10-PCS; 2017-03-17)
PROC: 0DB28ZX Excision of Middle Esophagus, Via Natural or Artificial Opening Endoscopic, Diagnostic (ICD-10-PCS; 2017-03-17)
PROC: 0DB48ZX Excision of Esophagogastric Junction, Via Natural or Artificial Opening Endoscopic, Diagnostic (ICD-10-PCS; principal; 2017-03-17 14:00)
DX: I63.9 Cerebral infarction, unspecified (principal); J18.9 Pneumonia, unspecified organism; G81.91 Hemiplegia, unspecified affecting right dominant side; C16.0 Malignant neoplasm of cardia; I50.9 Heart failure, unspecified; R47.01 Aphasia; R13.19 Other dysphagia; I44.30 Unspecified atrioventricular block; I48.91 Unspecified atrial fibrillation; Z80.0 Family history of malignant neoplasm of digestive organs; I10 Essential (primary) hypertension; E11.9 Type 2 diabetes mellitus without complications; Z79.84 Long term (current) use of oral hypoglycemic drugs; J44.9 Chronic obstructive pulmonary disease, unspecified; G20 Parkinson's disease; F02.80 Dementia in other diseases classified elsewhere, unspecified severity, without behavioral disturbance, psychotic disturbance, mood disturbance, and anxiety; Z95.0 Presence of cardiac pacemaker; N40.0 Benign prostatic hyperplasia without lower urinary tract symptoms
CPT/HCPCS: 36415; 70450-TC; 71010-TC; 71020-TC; 71260-TC; 74000-TC; 74020-TC; 74177-TC; 74230-TC; 78306-TC; 80048; 80053; 80061; 81003; 82803; 83036; 83605; 83880; 84153; 84484; 85025; 85610; 85730; 86850; 86900; 86901; 87040; 87086; 87186; 88305-TC; 92611-GN; 93005; 93010; 93306-TC; 93880-TC; 97116-GP; 97161-GP; 99285-25; A9503; Q9967